=== PATIENT | female | born 1985 | race Caucasian/White ===

== ENCOUNTER 2018-01-24 18:15 | Emergency (ER) | payer SELFPAY ==
[2018-01-24] MEDS ORDERED: KETOROLAC 30 MG/ML INJ ONE (19:22)
[2018-01-24] MEDS ORDERED: NA CHLORIDE 0.9% 1,000 ML ONE (19:23)
[2018-01-24 19:54] LABS: Absolute Lymphocytes (CBC) 1.5 K/uL (0.7-4.9); Absolute Monocytes 0.4 K/uL (0.1-1.3); Absolute Neutrophil 5.7 K/uL (1.8-8.0); Basophils % 0.5 % (0-1.3); Eosinophils % 0.9 % (0-4.4); Hematocrit 37.6 % (36.0-45.0); MCV 88.6 fL (80-100); MPV 7.1 fL (7.6-11.3); Monocytes % 5.5 % (3.3-12.3); RBC Red Blood Cell Count 4.24 M/uL (3.86-4.86)
[2018-01-24 20:03] LABS: Bicarbonate 29 mEq/L (21-31); Glucose Level 84 mg/dL (65-120); Potassium 3.9 mEq/L (3.6-5.0); Sodium Level 134 mEq/L (135-145)
[2018-01-24 20:04] LABS: Protime INR 0.97
[2018-01-24 20:09] LABS: ALT/SGPT 18 IU/L (10-60); AST/SGOT 20 IU/L (10-42); Albumin 4.3 g/dL (3.2-5.5); Alkaline Phosphatase 68 IU/L (42-121); BUN Blood Urea Nitrogen 9 mg/dL (6-20); Bilirubin Direct < 0.1 mg/dL (0-0.2); Bilirubin Total 0.4 mg/dL (0.3-1.2); Creatine Phosphokinase 66 IU/L (22-269); Glomerular Filtration Rate > 90 mL/min (=/>90); Protein, Total 7.2 g/dL (6.0-8.3)
[2018-01-24 20:12] LABS: CKMB Creatine Kinase MB 0.6 ng/ml (0.3-4.0)
[2018-01-24 20:30] LABS: Urine Blood NEGATIVE (NEG); Urine Glucose NEGATIVE (NEG); Urine Protein NEGATIVE (NEG); Urine Specific Gravity 1.015 (1.005-1.030)
[2018-01-24] MEDS ORDERED: CYCLOBENZAPRINE 10 MG TAB ONE (21:03)
[2018-01-24] MEDS ORDERED: MORPHINE 4 MG/ML SYR ONE (21:04)
--- NOTE | 2018-01-24 21:35 | ER ---
Nurse's Notes [facility] Name: Angelica Park Age: 32 yrs Sex: Female : 1985 Arrival Date: 01/24/2018 Time: 18:16 Bed 23 Private MD: Diagnosis: Other chest pain-Musculoskeletal;Paresthesia of skin-Right Arm;Pain in right shoulder Presentation: 01/24 18:19 Presenting complaint: Patient states: Reports sharp pain in ribs that started at 1500 aj today. 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 Drove herself to ER and ambulated in with steady gait. Transition of care: patient was not received from another setting of care. Onset of symptoms was January 24, 2018. Care prior to arrival: None. 18:19 Method Of Arrival: Ambulatory aj 18:19 Acuity: DIEGO 3 aj Triage Assessment: 18:22 General: Appears in no apparent distress. comfortable, Behavior is cooperative, aj anxious. Pain: Complains of pain in right eighth rib, right ninth rib, right seventh intercostal space and right eighth intercostal space Aggravated by repositioning. Neuro: Level of Consciousness is awake, alert, obeys commands, Oriented to person, place, time, situation, Gait is steady, Speech is normal, Facial symmetry appears normal, Numbness in chest and right arm. Cardiovascular: Capillary refill < 3 seconds in bilateral fingers Patient's skin is warm and dry. Respiratory: Reports pain with respiration Airway is patent Respiratory effort is even, unlabored, Respiratory pattern is regular, symmetrical. Derm: Skin is intact, is healthy with good turgor, Skin is pink, warm \T\ dry. normal. 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 - Social history:: Smoking status: Patient uses tobacco products, electronic cigarette. Screenin:00 Abuse screen: Denies threats or abuse. Nutritional screening: No deficits noted. cr4 Tuberculosis screening: No symptoms or risk factors identified. Fall Risk None identified. Assessment: 19:20 Pain: Pain radiates to right hand, right shoulder and face around lips. Pain began 2 cr4 hours ago. 19:20 General: Appears uncomfortable, well groomed, Behavior is anxious. Pain: Complains of cr4 pain in right rib area Pain currently is 8 out of 10 on a pain scale. at worst was 9 out of 10 on a pain scale. Quality of pain is described as aching, sharp, tingling, Aggravated by repositioning, Goal of pain control is to. Neuro: Reports numbness in right arm, and around mouth. paresthesias in face and right arm weakness Denies blurred vision dizziness, headache. Cardiovascular: Denies chest pain, lightheadedness, nausea, shortness of breath, Capillary refill < 3 seconds Patient's skin is warm and dry. Rhythm is regular. Respiratory: Airway is patent Respiratory effort is even, unlabored, Breath sounds are clear bilaterally. GI: No deficits noted. Patient currently denies nausea, vomiting. : Denies burning with urination, pain urinary frequency. EENT: No deficits noted. Derm: No deficits noted. 20:40 Reassessment: No changes from previously documented assessment. Patient and/or family cr4 updated on plan of care and expected duration. Pain level reassessed. Patient is alert, oriented x 3, equal unlabored respirations, skin warm/dry/pink. . 21:25 Reassessment: No changes from previously documented assessment. Patient and/or family cr4 updated on plan of care and expected duration. Pain level reassessed. Patient is alert, oriented x 3, equal unlabored respirations, skin warm/dry/pink. 22:00 Reassessment: Patient is alert, oriented x 3, equal unlabored respirations, skin cr4 warm/dry/pink. Patient states feeling better. Vital Signs: 18:22 BP 140 / 92; Pulse 82; Resp 22; Temp 98.0; Pulse Ox 99% on R/A; Weight 63.5 kg; Height aj 5 ft. 3 in. (160.02 cm); Pain 7/10; 19:46 BP 126 / 94; Pulse 70; Resp 18; Temp 98.3; Pulse Ox 98% ; Pain 8/10; cr4 20:45 BP 125 / 82; Pulse 75; Resp 18; Pulse Ox 98% ; Pain 7/10; cr4 21:45 BP 121 / 88; Pulse 74; Resp 18; Temp 98.4; Pulse Ox 100% ; Pain 6/10; cr4 22:00 Pain 5/10; cr4 04 00:58 Pain 7/10; cr4 01/24 18:22 Body Mass Index 24.80 (63.50 kg, 160.02 cm) ED Course: 01/24 18:16 Patient arrived in ED. as 18:21 Triage completed. aj 18:22 Arm band placed on left wrist. Patient placed in an exam room. aj 19:00 Marty Duke PA is PHCP. cp 19:00 Angus Pride MD is Attending Physician. cp 19:20 Patient has correct armband on for positive identification. Bed in low position. Side cr4 rails up X2. quality assurance monitor chassis on. Pulse ox on. Warm blanket given. 19:20 No provider procedures requiring assistance completed. cr4 19:40 Inserted saline lock: 20 gauge in right antecubital area, using aseptic technique. cr4 Patient maintains SpO2 saturation greater than 95% on room air. 19:50 Marty Rivera MD is Attending Physician. cp 20:31 EKG done, by ED staff, reviewed by Marty GUIDO. dh3 20:50 Patient moved to radiology via wheelchair. ml 21:02 X-ray completed. Patient tolerated procedure well. Patient moved back from radiology. ml 21:03 XRAY Ribs RIGHT In Process Unspecified. EDMS 21:03 XRAY Shoulder RIGHT 2 view In Process Unspecified. EDMS 22:00 intact, bleeding controlled, No redness/swelling at site. cr4 22:00 Sling applied to right arm. cr4 Administered Medications: 19:30 Drug: NS 0.9% 1000 ml Route: IV; Rate: 1 bolus; Site: right antecubital; cr4 20:40 Follow up: Response: No adverse reaction; IV Status: Completed infusion; IV Intake: cr4 1000ml 19:35 Drug: TORadol 30 mg Route: IVP; Site: right antecubital; cr4 01/25 00:58 Follow up: Pain 7/10 Adult; Response: Pain is decreased cr4 01/24 20:35 CANCELLED (Physician Discretion): morphine 2 mg IVP once cp 21:25 Drug: Flexeril 10 mg Route: PO; cr4 22:00 Follow up: Response: No adverse reaction; Pain is decreased cr4 21:25 Drug: morphine 2 mg Route: IVP; Site: right antecubital; cr4 22:00 Follow up: Pain 5/10 Adult; Response: No adverse reaction; Pain is decreased cr4 Intake: 20:40 IV: 1000ml; Total: 1000ml. cr4 Outcome: 21:35 Discharge ordered by MD. cp 22:00 Discharged to home ambulatory, with significant other. cr4 22:00 Condition: stable 22:00 Discharge instructions given to patient, significant other, Instructed on discharge instructions, follow up and referral plans. no drinking with medication, medication usage, Demonstrated understanding of instructions, follow-up care, medications, Prescriptions given X 3. 22:02 Patient left the ED. cr4 Signatures: Dispatcher [employer] EDMS Kyra Lopez RN RN aj Martinez, Amelia as Ruiz, Claudia, RN RN cr4 Lopez, Melissa ml Page, Corey, PA PA cp Herrera, Deanna [facility]
--- NOTE | 2018-01-24 21:35 | EDPHYS ---
Physician Documentation [facility] Name: Angelica Park Age: 32 yrs Sex: Female : 1985 Arrival Date: 01/24/2018 Time: 18:16 Bed 23 Private MD: ED Physician Marty Rivera HPI: 01/24 19:15 This 32 yrs old Female presents to ER via Ambulatory with complaints of Chest cp Pain, Numbness. 19:15 The patient or guardian reports chest pain that is located primarily in the right cp lateral posterior chest and right lateral anterior chest. 19:15 The pain radiates to the right arm, the right shoulder. Associated signs and symptoms: cp Pertinent positives: numbness of right arm, Pertinent negatives: cough, diaphoresis, shortness of breath, syncope. The chest pain is described as sharp. Duration: The patient or guardian reports a single episode, that is still ongoing, and unchanged. Modifying factors: the symptoms are aggravated by movement, palpation of area. 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 - Social history:: Smoking status: Patient uses tobacco products, electronic cigarette. ROS: 19:22 Constitutional: Negative for body aches, chills, fever, poor PO intake. cp 19:22 Eyes: Negative for injury, pain, redness, and discharge. cp Exam: 20:05 ECG was reviewed by the Attending Physician. cp 20:10 Constitutional: The patient appears in no acute distress, alert, awake, cp non-diaphoretic, non-toxic, well developed, well nourished, uncomfortable. 20:10 Head/Face: Normocephalic, atraumatic. cp 20:10 Eyes: Periorbital structures: appear normal, Pupils: equal, round, and reactive to light and accomodation, Extraocular movements: intact throughout, Conjunctiva: normal, no exudate, no injection, Sclera: no appreciated abnormality, Lids and lashes: appear normal, bilaterally. 20:10 ENT: External ear(s): are unremarkable, Ear canal(s): are normal, clear, TM's: bulging, is not appreciated, bilaterally, dullness, bilaterally, erythema, is not appreciated, bilaterally, Nose: is normal, Mouth: Lips: moist, Oral mucosa: moist, Posterior pharynx: Airway: no evidence of obstruction, patent, Tonsils: are normal in appearance, Uvula: midline, swelling, is not appreciated, erythema, is not appreciated, exudate, is not appreciated, Voice: is normal. 20:10 Neck: C-spine: vertebral tenderness, is not appreciated, crepitus, is not appreciated, ROM/movement: is normal, is supple, without pain, no range of motions limitations, no nuchal rigidity. 20:10 Chest/axilla: Inspection: normal, Palpation: crepitus, is not appreciated, tenderness, that is moderate, of the right lateral posterior chest and right lateral anterior chest. 20:10 Cardiovascular: Rate: normal, Rhythm: regular, Pulses: Pulses are 2+ in right radial artery and left radial artery. Heart sounds: murmur, not appreciated, rub, not appreciated, gallop, not appreciated, Edema: is not appreciated, JVD: is not appreciated. 20:10 Respiratory: the patient does not display signs of respiratory distress, Respirations: normal, no use of accessory muscles, no retractions, no splinting, no tachypnea, labored breathing, is not present, Breath sounds: are clear throughout, no decreased breath sounds, no stridor, no wheezing. 20:10 Abdomen/GI: Inspection: abdomen appears normal, Bowel sounds: active, all quadrants, Palpation: abdomen is soft and non-tender, in all quadrants, rebound tenderness, is not appreciated, voluntary guarding, is not appreciated, involuntary guarding, is not appreciated. 20:10 Back: ROM is normal. Vital Signs: 18:22 BP 140 / 92; Pulse 82; Resp 22; Temp 98.0; Pulse Ox 99% on R/A; Weight 63.5 kg; Height aj 5 ft. 3 in. (160.02 cm); Pain 7/10; 19:46 BP 126 / 94; Pulse 70; Resp 18; Temp 98.3; Pulse Ox 98% ; Pain 8/10; cr4 20:45 BP 125 / 82; Pulse 75; Resp 18; Pulse Ox 98% ; Pain 7/10; cr4 21:45 BP 121 / 88; Pulse 74; Resp 18; Temp 98.4; Pulse Ox 100% ; Pain 6/10; cr4 22:00 Pain 5/10; cr4 01/25 00:58 Pain 7/10; cr4 01/24 18:22 Body Mass Index 24.80 (63.50 kg, 160.02 cm) aj MDM: 01/24 19:00 Patient medically screened. cp 20:00 Differential diagnosis: abnormal EKG, acute myocardial infarction, acute pericarditis, cp anxiety, chest wall pain, cholecystitis, pancreatitis, pleurisy, pneumonia, pneumothorax, pulmonary embolus, stable angina, unstable angina, rib fracture. 21:34 Data reviewed: vital signs, nurses notes, lab test result(s), EKG, radiologic studies, cp plain films. 21:34 Test interpretation: by ED physician or midlevel provider: ECG, plain radiologic cp studies. Counseling: I had a detailed discussion with the patient and/or guardian regarding: the historical points, exam findings, and any diagnostic results supporting the discharge/admit diagnosis, lab results, radiology results, to return to the emergency department if symptoms worsen or persist or if there are any questions or concerns that arise at home. 01/24 19:07 Order name: Basic Metabolic Panel; Complete Time: 20:12 cp 01/24 19:07 Order name: BNP; Complete Time: 20:33 cp 01/24 19:07 Order name: CBC with Diff; Complete Time: 20:12 cp 01/24 19:07 Order name: Ckmb; Complete Time: 20:12 cp 01/24 19:07 Order name: CPK; Complete Time: 20:12 cp 01/24 19:07 Order name: LFT's; Complete Time: 20:12 cp 01/24 19:07 Order name: Magnesium; Complete Time: 20:12 cp 01/24 19:07 Order name: PT-INR; Complete Time: 20:12 cp 01/24 19:07 Order name: Ptt, Activated; Complete Time: 20:12 cp 01/24 19:07 Order name: Troponin (emerg Dept Use Only); Complete Time: 20:12 cp 01/24 19:07 Order name: D-Dimer; Complete Time: 20:12 cp 04 20:13 Order name: XRAY Ribs RIGHT cp 01/24 20:13 Order name: XRAY Shoulder RIGHT 2 view cp 01/24 20:14 Order name: Urine Dipstick--Ancillary (enter results); Complete Time: 20:33 em1 01/24 19:05 Order name: EKG; Complete Time: 19:05 cp 01/24 19:05 Order name: EKG - Nurse/Tech; Complete Time: 20:31 cp 01/24 19:07 Order name: Cardiac monitoring; Complete Time: 01:18 cp 01/24 19:07 Order name: IV Saline Lock; Complete Time: 19:50 cp 01/24 19:07 Order name: Labs collected and sent; Complete Time: 01:00 cp 01/24 19:07 Order name: O2 Per Protocol; Complete Time: 01:00 cp 01/24 19:07 Order name: O2 Sat Monitoring; Complete Time: 01:00 cp 01/24 19:07 Order name: Urine Dipstick-Ancillary (obtain specimen); Complete Time: 20:12 cp 01/24 21:32 Order name: Sling; Complete Time: 22:00 cp EC:05 Rate is 71 beats/min. Rhythm is regular. [place] interval is normal. QRS interval is normal. cp QT interval is normal. No ST changes noted. Interpreted by me. Reviewed by me. Administered Medications: 19:30 Drug: NS 0.9% 1000 ml Route: IV; Rate: 1 bolus; Site: right antecubital; cr4 20:40 Follow up: Response: No adverse reaction; IV Status: Completed infusion; IV Intake: cr4 1000ml 19:35 Drug: TORadol 30 mg Route: IVP; Site: right antecubital; cr4 01/25 00:58 Follow up: Pain 7/10 Adult; Response: Pain is decreased cr4 01/24 20:35 CANCELLED (Physician Discretion): morphine 2 mg IVP once cp 21:25 Drug: Flexeril 10 mg Route: PO; cr4 22:00 Follow up: Response: No adverse reaction; Pain is decreased cr4 21:25 Drug: morphine 2 mg Route: IVP; Site: right antecubital; cr4 22:00 Follow up: Pain 5/10 Adult; Response: No adverse reaction; Pain is decreased cr4 Disposition: 01/25 06:58 Co-signature as Attending Physician, Marty Rivera MD I agree with the assessment and alea plan of care. Disposition: 01/24/18 21:35 Discharged to Home. Impression: Other chest pain - Musculoskeletal, Paresthesia of skin - Right Arm, Pain in right shoulder. - Condition is Stable. - Discharge Instructions: Chest Wall Pain, Musculoskeletal Pain, Shoulder Pain. - Prescriptions for Cyclobenzaprine 10 mg Oral Tablet - take 1 tablet by ORAL route every 8 hours As needed; 20 tablet. Diclofenac Sodium 75 mg Oral Tablet, Delayed Release (E.C.) - take 1 tablet by ORAL route 2 times per day; 20 tablet. Tramadol 50 mg Oral Tablet - take 1 tablet by ORAL route every 8 hours as needed; 12 tablet. - Medication Reconciliation Form, Thank You Letter, Antibiotic Education, Prescription Opioid Use form. - Follow up: Private Physician; When: 2 - 3 days; Reason: Recheck today's complaints. - Problem is new. - Symptoms have improved. Signatures: Dispatcher [employer] EDKyra De León RN Marty Bower MD MD cha Ruiz, Claudia, RN RN cr4 Marty Duke PA PA cp Corrections: (The following items were deleted from the chart) 01/24 20:35 20:35 morphine 2 mg IVP once ordered. cp cp
--- NOTE | 2018-01-25 08:21 | RAD REPORT ---
EXAM DESCRIPTION: Ribs Right - 01/24/2018 9:04 pm CLINICAL HISTORY: Right-sided chest pain, rib pain COMPARISON: June 2015 FINDINGS: No displaced rib fracture is evident. No aggressive rib lesion. No underlying pneumothorax, effusion, infiltrate or pulmonary contusion. IMPRESSION: Negative right rib series.
--- NOTE | 2018-01-25 08:21 | RAD REPORT ---
EXAM DESCRIPTION: Shoulder Right 2 View - 01/24/2018 9:04 pm CLINICAL HISTORY: Sharp right-sided chest, rib and shoulder pain COMPARISON: None. TECHNIQUE: Internal and external rotation views of the right shoulder were obtained. FINDINGS: There is no fracture or dislocation. AC joint is normal in appearance. No acute or suspici ous findings. IMPRESSION: Negative two-view right shoulder examination.
--- NOTE | 2018-01-27 22:48 | EKG ---
Test Date: 2018-01-24 Test Time: 19:58:18 Electrical Calibrator: GAMAL MEASUREMENT RESULTS: Intervals: Rate: 71 NH: 158 QRSD: 88 QT: 390 QTc: 423 Jeannette: P: 53 NH: 158 QRS: 15 T: 36 INTERPRETIVE STATEMENTS: Normal sinus rhythm Low voltage QRS Borderline ECG Compared to ECG 03/21/2017 10:42:54 Low QRS voltage now present Electronically Signed On 01-27-18 22:47:10 CDT by Jean Bella
== END 2018-01-24 22:02 | disposition home or self-care (01) ==
LOC: ER 18:15
DX: R20.2 Paresthesia of skin (principal); M25.511 Pain in right shoulder; Z72.0 Tobacco use; F41.9 Anxiety disorder, unspecified; F32.9 Major depressive disorder, single episode, unspecified; Z88.0 Allergy status to penicillin; Z88.1 Allergy status to other antibiotic agents; Z88.3 Allergy status to other anti-infective agents
CPT/HCPCS: 36415; 80048; 80076; 81003; 82550; 82553; 83735; 83880; 84484; 85025; 85379; 85610; 85730; 93005; 96361; 96374; 96375; 99285; J7030

== ENCOUNTER 2018-05-13 13:43 | Emergency (ER) | payer SELFPAY ==
--- NOTE | 2018-05-13 13:58 | EKG ---
Test Date: 2018-05-13 Test Time: 13:43:55 Card Player: KATIE MEASUREMENT RESULTS: Intervals: Rate: 83 NE: 132 QRSD: 68 QT: 358 QTc: 420 Humbird: P: 35 NE: 132 QRS: 14 T: 28 INTERPRETIVE STATEMENTS: Normal sinus rhythm Low voltage QRS Borderline ECG Compared to ECG 01/24/2018 19:58:18 No significant changes Electronically Signed On 05-13-18 13:57:52 CDT by Jean Bella
[2018-05-13 14:20] LABS: Absolute Monocytes 0.3 K/uL (0.1-1.3); Absolute Neutrophil 4.7 K/uL (1.8-8.0); Basophils % 0.6 % (0-1.3); Eosinophils % 1.4 % (0-4.4); Hematocrit 38.7 % (36.0-45.0); MCH 31.3 pg (27.0-35.0); MCV 90.2 fL (80-100); MPV 7.4 fL (7.6-11.3); Monocytes % 4.4 % (3.3-12.3); RBC Red Blood Cell Count 4.29 M/uL (3.86-4.86)
[2018-05-13 14:26] LABS: Protime INR 1.02
[2018-05-13 14:36] LABS: Bicarbonate 25 mmol/L (21-32); Potassium 3.9 mmol/L (3.5-5.1); Sodium Level 140 mmol/L (136-145)
[2018-05-13 14:37] LABS: ALT/SGPT 26 U/L (12-78); AST/SGOT 18 U/L (15-37); Albumin 3.6 g/dL (3.4-5.0); Alkaline Phosphatase 82 U/L (45-117); BUN Blood Urea Nitrogen 11 mg/dL (7-18); Bilirubin Direct < 0.1 mg/dL (0-0.2); Bilirubin Total 0.5 mg/dL (0.2-1.0); CKMB Creatine Kinase MB < 1.0 ng/mL (0.3-3.6); Creatine Phosphokinase 61 U/L (26-192); Glucose Level 128 mg/dL (74-106); NT PRO-BNP 65 pg/mL (<125); Protein, Total 6.9 g/dL (6.4-8.2)
[2018-05-13 15:01] LABS: Urine Blood NEGATIVE (NEG); Urine Glucose NEGATIVE (NEG); Urine Protein NEGATIVE (NEG); Urine Specific Gravity 1.015 (1.005-1.030); Urine pH 5.5 (5.0-7.0)
--- NOTE | 2018-05-13 15:02 | RAD REPORT ---
EXAM DESCRIPTION: RAD - Chest Single View - 05/13/2018 2:33 pm CLINICAL HISTORY: CHEST PAIN Chest pain. COMPARISON: CHEST PA AND LAT 2 VIEW dated 07/06/2015 FINDINGS: Portable technique limits examination quality. The lungs are grossly clear. The heart is normal in size. No displaced fractures. IMPRESSION: No acute intrathoracic process suspected.
--- NOTE | 2018-05-13 15:09 | EDPHYS ---
Physician Documentation [facility] Name: Angelica Park Age: 33 yrs Sex: Female : 1985 Arrival Date: 05/13/2018 Time: 13:45 Bed 16 Private MD: ED Physician Ashutohs Reynolds HPI: 05/13 15:02 This 33 yrs old Female presents to ER via EMS with complaints of Chest Pain, ps1 Arm Pain. 15:02 The patient or guardian reports chest pain that is located primarily in the substernal ps1 area, anterior chest wall. The pain does not radiate. Associated signs and symptoms: The patient has no apparent associated signs or symptoms. The chest pain is described as sharp, stabbing. Duration: The patient or guardian reports a single episode, since last night. Severity of pain: At its worst the pain was moderate. no medical history. States she cannot take steroids PO cause they make her sick. No DVT symptoms or risk factors. Pain completely reproducible by palpation. Historical: - Allergies: 13:49 Amoxicillin; ae1 13:49 Bactrim; ae1 13:49 Cipro; ae1 13:49 PENICILLINS; ae1 - Home Meds: 13:49 Cymbalta Oral [Active]; gabapentin Oral [Active]; Seroquel Oral [Active]; ae1 - PMHx: 13:50 Anxiety; Depression; ae1 - Immunization history:: Adult Immunizations up to date. - Social history:: Smoking status: Patient uses tobacco products, denies chronic smoking, but will smoke occasionally. - Ebola Screening: : Patient negative for fever greater than or equal to 101.5 degrees Fahrenheit, and additional compatible Ebola Virus Disease symptoms Patient denies exposure to infectious person Patient denies travel to an Ebola-affected area in the 21 days before illness onset No symptoms or risks identified at this time. ROS: 15:02 Constitutional: Negative for fever, chills, and weight loss, Eyes: Negative for injury, ps1 pain, redness, and discharge, Cardiovascular: Negative for chest pain, palpitations, and edema, Respiratory: Negative for shortness of breath, cough, wheezing, and pleuritic chest pain, Abdomen/GI: Negative for abdominal pain, nausea, vomiting, diarrhea, and constipation, Skin: Negative for injury, rash, and discoloration, Neuro: Negative for headache, weakness, numbness, tingling, and seizure. 15:02 MS/extremity: Positive for pain, of the anterior aspect of left upper chest. Exam: 15:02 Constitutional: This is a well developed, well nourished patient who is awake, alert, ps1 and in no acute distress. Head/Face: Normocephalic, atraumatic. Eyes: Pupils equal round and reactive to light, extra-ocular motions intact. Lids and lashes normal. Conjunctiva and sclera are non-icteric and not injected. Cardiovascular: Regular rate and rhythm. No gallops, murmurs, or rubs. Normal PMI, no JVD. No pulse deficits. Respiratory: Lungs have equal breath sounds bilaterally, clear to auscultation and percussion. No rales, rhonchi or wheezes noted. No increased work of breathing, no retractions or nasal flaring. Abdomen/GI: Soft, non-tender, with normal bowel sounds. No distension or tympany. No guarding or rebound. No evidence of tenderness throughout. Skin: Warm, dry with normal turgor. Normal color with no rashes, no lesions, and no evidence of cellulitis. MS/ Extremity: Pulses equal, no cyanosis. Neurovascular intact. Full, normal range of motion. Neuro: Awake and alert, GCS 15, oriented to person, place, time, and situation. Cranial nerves II-XII grossly intact. Sensory grossly intact. 15:02 Chest/axilla: Inspection: normal, Palpation: tenderness, of the anterior aspect of left upper chest, that totally reproduces the patient's complaints. Vital Signs: 13:45 BP 131 / 90; Pulse 94; Resp 22; Temp 98.2(O); Pulse Ox 99% on R/A; ae1 14:20 Weight 70.31 kg (R); ae1 14:49 BP 114 / 79; Pulse 67; Resp 15; Pulse Ox 99% on R/A; ae1 MDM: 13:43 HEART Score: History: Slightly Suspicious (0), ECG: Normal (0), Age: < or = 45 years ps1 (0), Risk Factors: No Risk Factors Known (0), Troponin: < or = 1 x Normal Limit (0), Total Score =. Data reviewed: vital signs, nurses notes, lab test result(s), EKG, radiologic studies. Data interpreted: athletic monitor: Pulse oximetry:. 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 Special discussion: Based on the patient's history, exam, and Dx evaluation, there is no indication for emergent intervention or inpatient Tx. It is understood by the patient/guardian that if the Sx's persist or worsen they need to return immediately for re-evaluation. 15:02 Patient medically screened. 05/13 13:48 Order name: Basic Metabolic Panel; Complete Time: 14:05/13 13:48 Order name: CBC with Diff; Complete Time: :05/13 13:48 Order name: Ckmb; Complete Time: 14:05/13 13:48 Order name: CPK; Complete Time: 14:05/13 13:48 Order name: LFT's; Complete Time: 14:05/13 13:48 Order name: Magnesium; Complete Time: 14:05/13 13:48 Order name: NT PRO-BNP; Complete Time: 14:05/13 13:48 Order name: PT-INR; Complete Time: 14:05/13 13:48 Order name: Ptt, Activated; Complete Time: 14:05/13 13:48 Order name: Troponin (emerg Dept Use Only); Complete Time: 14:05/13 13:48 Order name: XRAY Chest (1 view); Complete Time: 15:05/13 13:48 Order name: DD; Complete Time: 14:05/13 14:50 Order name: Urine Dipstick--Ancillary (enter results); Complete Time: 15:05/13 14:50 Order name: Urine --Ancillary (enter results); Complete Time: 15:05/13 13:48 Order name: EKG; Complete Time: 13:49 05/13 13:48 Order name: Cardiac monitoring; Complete Time: 13:48 05/13 13:48 Order name: EKG - Nurse/Tech; Complete Time: 13:48 05/13 13:48 Order name: IV Saline Lock; Complete Time: 13:48 05/13 13:48 Order name: Labs collected and sent; Complete Time: 13:48 05/13 13:48 Order name: O2 Per Protocol; Complete Time: 13:49 05/13 13:48 Order name: O2 Sat Monitoring; Complete Time: 13:49 05/13 13:48 Order name: Urine Dipstick-Ancillary (obtain specimen); Complete Time: 14:44 aj EC:43 Rate is 83 beats/min. Rhythm is regular. QRS [place] is Normal. OK interval is normal. QRS ps1 interval is normal. QT interval is normal. No Q waves. T waves are Normal. No ST changes noted. Clinical impression: Normal ECG. Interpreted by me. Administered Medications: 15:36 Drug: Decadron 10 mg Route: IM; Site: left gluteus; ae1 16:15 Follow up: Response: No adverse reaction ae1 Disposition: 05/13/18 15:08 Discharged to Home. Impression: costochondritis. - Condition is Stable. - Discharge Instructions: Costochondritis. - Medication Reconciliation Form, Thank You Letter, Antibiotic Education, Prescription Opioid Use form. - Follow up: Private Physician; When: As needed; Reason: Re-evaluation by your physician. Follow up: Emergency Department; When: As needed; Reason: Worsening of condition. - Problem is new. - Symptoms are unchanged. Signatures: Dispatcher [employer] EDKyra De León RN RN aj Sb Reich RN RN ae1 Ashutosh Reynolds MD MD ps1 Corrections: (The following items were deleted from the chart) 16:03 15:08 05/13/2018 15:08 Discharged to Home. Impression: costochondritis. Condition is ae1 Stable. Forms are Medication Reconciliation Form, Thank You Letter, Antibiotic Education, Prescription Opioid Use. Follow up: Private Physician; When: As needed; Reason: Re-evaluation by your physician. Follow up: Emergency Department; When: As needed; Reason: Worsening of condition. Problem is new. Symptoms are unchanged. ps1
--- NOTE | 2018-05-13 15:09 | ER ---
Nurse's Notes [facility] Name: Angelica Park Age: 33 yrs Sex: Female : 1985 Arrival Date: 05/13/2018 Time: 13:45 Bed 16 Private MD: Diagnosis: costochondritis Presentation: 05/13 13:46 Acuity: DIEGO 3 ae1 13:50 Presenting complaint: EMS states: EMS states patient was at home when she had sudden ae1 left arm pain and left sided chest pain. Patient denies injury. Transition of care: patient was not received from another setting of care. Onset of symptoms was May 13, 2018 at 13:00. Risk Assessment: Do you want to hurt yourself or someone else? Patient reports no desire to harm self or others. Initial Sepsis Screen: Does the patient meet any 2 criteria? RR > 20 per min. Does the patient have a suspected source of infection? No. Patient's initial sepsis screen is negative. Care prior to arrival: IV initiated. 20 GA, in the left hand. 13:50 Method Of Arrival: EMS: [facility] ae1 Triage Assessment: 16:02 General: Appears distressed, uncomfortable, Behavior is cooperative, restless. Pain:. ae1 Historical: - Allergies: 13:49 Amoxicillin; ae1 13:49 Bactrim; ae1 13:49 Cipro; ae1 13:49 PENICILLINS; ae1 - Home Meds: 13:49 Cymbalta Oral [Active]; gabapentin Oral [Active]; Seroquel Oral [Active]; ae1 - PMHx: 13:50 Anxiety; Depression; ae1 - Immunization history:: Adult Immunizations up to date. - Social history:: Smoking status: Patient uses tobacco products, denies chronic smoking, but will smoke occasionally. - Ebola Screening: : Patient negative for fever greater than or equal to 101.5 degrees Fahrenheit, and additional compatible Ebola Virus Disease symptoms Patient denies exposure to infectious person Patient denies travel to an Ebola-affected area in the 21 days before illness onset No symptoms or risks identified at this time. Screenin:45 Tuberculosis screening: No symptoms or risk factors identified. Fall Risk None ae1 identified. 13:47 Abuse screen: Denies threats or abuse. Nutritional screening: No deficits noted. ae1 Assessment: 13:50 General: Appears distressed, uncomfortable, slender, Behavior is cooperative, anxious, ae1 crying, restless. Pain: Complains of pain in chest and left arm Pain does not radiate. Pain began suddenly. Neuro: Level of Consciousness is awake, alert, obeys commands, Oriented to person, place, time, situation. Cardiovascular: Heart tones S1 S2 present Patient's skin is warm and dry. Respiratory: Airway is patent Respiratory effort is even, unlabored, Respiratory pattern is regular, symmetrical, Breath sounds are clear bilaterally. GI: No signs and/or symptoms were reported involving the gastrointestinal system. : No signs and/or symptoms were reported regarding the genitourinary system. EENT: No signs and/or symptoms were reported regarding the EENT system. Derm: Skin is pink, warm \T\ dry. Musculoskeletal: No signs and/or symptoms reported regarding the musculoskeletal system. 14:24 Reassessment: Patient up to restroom to urinate. is walking with patient as ae1 well. Vital Signs: 13:45 BP 131 / 90; Pulse 94; Resp 22; Temp 98.2(O); Pulse Ox 99% on R/A; ae1 14:20 Weight 70.31 kg (R); ae1 14:49 BP 114 / 79; Pulse 67; Resp 15; Pulse Ox 99% on R/A; ae1 ED Course: 13:45 Patient arrived in ED. ae1 13:47 Triage completed. ae1 13:47 Kyra Lopez RN is Primary Nurse. aj 13:47 Arm band placed on left wrist. EKG completed in triage. Results shown to MD. ae1 13:50 Maintain EMS IV. Dressing intact. Good blood return noted. Site clean \T\ dry. Gauge \T\ ae 1 site: 20 left hand. Patient maintains SpO2 saturation greater than 95% on room air. 13:55 EKG done, by fish roe technician. reviewed by Marty Rivera MD. sm3 14:00 Placed in gown. Bed in low position. Call light in reach. Side rails up X 1. Adult w/ ae1 patient. monitoring and evaluation advisor on. Pulse ox on. NIBP on. Warm blanket given. 14:16 Ashutosh Reynolds MD is Attending Physician. ps1 14:20 Sb Reich, KEVYN is Primary Nurse. ae1 14:20 X-ray completed. Portable x-ray completed in exam room. Patient tolerated procedure jb2 well. 14:32 XRAY Chest (1 view) In Process Unspecified. EDMS 16:23 No provider procedures requiring assistance completed. IV discontinued, intact, ae1 bleeding controlled, No redness/swelling at site. Pressure dressing applied. Administered Medications: 15:36 Drug: Decadron 10 mg Route: IM; Site: left gluteus; ae1 16:15 Follow up: Response: No adverse reaction ae1 Outcome: 15:08 Discharge ordered by . ps1 16:03 Patient left the ED. ae1 16:24 Discharged to home ambulatory, with significant other. ae1 16:24 Condition: stable 16:24 Discharge instructions given to patient, Instructed on discharge instructions, follow up and referral plans. Demonstrated understanding of instructions. Signatures: Dispatcher [employer] EDMS Kyra Lopez RN RN aj Buechter, Jesse jb2 Sb Reich RN RN ae1 Ashutosh Reynolds MD MD ps1 Sona Batista sm3 Corrections: (The following items were deleted from the chart) 14:49 14:47 BP 105 / 81; Pulse 72bpm; Resp 22bpm; Pulse Ox 98% RA; ae1 ae1
[2018-05-13] MEDS ORDERED: DEXAMETHASONE 10 MG/ML VIAL ONE (15:29)
== END 2018-05-13 16:03 | disposition home or self-care (01) ==
LOC: ER 13:43
DX: M94.0 Chondrocostal junction syndrome [Tietze] (principal)
CPT/HCPCS: 36415; 71045; 80048; 80076; 81003; 81025; 82550; 82553; 83735; 83880; 84484; 85025; 85379; 85610; 85730; 93005; 96372; 99285; J1100

== ENCOUNTER 2018-08-24 22:13 | Emergency (ER) | payer SELFPAY ==
[2018-08-24 22:38] LABS: Absolute Lymphocytes (CBC) 1.3 K/uL (0.7-4.9); Absolute Monocytes 0.4 K/uL (0.1-1.3); Absolute Neutrophil 3.6 K/uL (1.8-8.0); Basophils % 0.5 % (0-1.3); Eosinophils % 1.1 % (0-4.4); Hematocrit 36.1 % (36.0-45.0); MCH 31.7 pg (27.0-35.0); MCV 90.3 fL (80-100); MPV 7.3 fL (7.6-11.3); Monocytes % 6.8 % (3.3-12.3)
[2018-08-24 22:41] LABS: Arterial Blood Carboxyhemoglob 0.7 % (0-1.5); Blood Gas Oxyhemoglobin 93.8 % (94-97); Blood O2 Saturation 95.5 % (92-98.5)
[2018-08-24] MEDS ORDERED: NA CHLORIDE 0.9% 1,000 ML ONE (22:41)
[2018-08-24] MEDS ORDERED: FAMOTIDINE 20 MG/2 ML VIAL IV ONE (22:41)
[2018-08-24 22:45] LABS: Protime INR 1.03
[2018-08-24 23:01] LABS: Barbiturates NEGATIVE (NEGATIVE); Benzodiazepines POSITIVE (NEGATIVE); Cocaine NEGATIVE (NEGATIVE); METHAMPHETAM NEGATIVE (NEGATIVE); Methadone NEGATIVE (NEGATIVE); Opiates NEGATIVE (NEGATIVE); Phencyclidine NEGATIVE (NEGATIVE); THC Cannibis NEGATIVE (NEGATIVE)
[2018-08-24 23:13] LABS: ALT/SGPT 21 U/L (12-78); AST/SGOT 15 U/L (15-37); Albumin 3.4 g/dL (3.4-5.0); Alkaline Phosphatase 80 U/L (45-117); BUN Blood Urea Nitrogen 10 mg/dL (7-18); Bicarbonate 25 mmol/L (21-32); Bilirubin Direct < 0.1 mg/dL (0-0.2); Bilirubin Total 0.3 mg/dL (0.2-1.0); Glucose Level 135 mg/dL (74-106); Lipase 273 U/L (73-393); NT PRO-BNP 14 pg/mL (<125); Potassium 3.2 mmol/L (3.5-5.1); Protein, Total 6.5 g/dL (6.4-8.2); Sodium Level 139 mmol/L (136-145); Troponin (Emerg Dept Use Only) < 0.02 ng/mL (0.0-0.045)
--- NOTE | 2018-08-24 23:25 | EDPHYS ---
Physician Documentation [facility] Name: Angelica Salcedo Age: 33 yrs Sex: Female : 1985 Arrival Date: 08/24/2018 Time: 22:14 Bed 3 Private MD: ED Physician Marty Rivera HPI: 08/24 22:23 This 33 yrs old Female presents to ER via Unassigned with complaints of alea Suicidal Ideation, Overdose. 22:23 The patient presents to the emergency department with depression, a history of a alea suicide gesture, where the patient took pills/medications, quel, NSAID's. Onset: The symptoms/episode began/occurred just prior to arrival. Past psychiatric history: Prior diagnosis: no previous psychiatric diagnosis known. Associated signs and symptoms: Pertinent positives; suicide ideation. Severity of symptoms: At their worst the symptoms were moderate in the emergency department the symptoms are unchanged. Unable to obtain HPI due to obtunded state. The patient has not experienced similar symptoms in the past. Historical: - Allergies: 22:31 Amoxicillin; tl2 22:31 Bactrim; tl2 22:31 Cipro; tl2 22:31 PENICILLINS; tl2 - Home Meds: 22:31 Cymbalta Oral [Active]; gabapentin Oral [Active]; Seroquel 100 mg oral tab [Active]; tl2 - PMHx: 22:31 Anxiety; Depression; tl2 - Immunization history:: Adult Immunizations up to date. - Social history:: Smoking status: unknown. - Family history:: not pertinent. - Ebola Screening: : No symptoms or risks identified at this time. ROS: 22:23 Eyes: Negative for injury, pain, redness, and discharge, ENT: Negative for injury, alea pain, and discharge, Neck: Negative for injury, pain, and swelling, Respiratory: Negative for shortness of breath, cough, wheezing, and pleuritic chest pain, Abdomen/GI: Negative for abdominal pain, nausea, vomiting, diarrhea, and constipation, Back: Negative for injury and pain, : Negative for injury, bleeding, discharge, and swelling, MS/Extremity: Negative for injury and deformity, Skin: Negative for injury, rash, and discoloration, Psych: Negative for depression, anxiety, suicide ideation, homicidal ideation, and hallucinations, Allergy/Immunology: Negative for hives, rash, and allergies, Endocrine: Negative for neck swelling, polydipsia, polyuria, polyphagia, and marked weight changes. 22:23 Constitutional: Positive for malaise. Exam: 22:23 Head/Face: Normocephalic, atraumatic. ENT: Nares patent. No nasal discharge, no alea septal abnormalities noted. Tympanic membranes are normal and external auditory canals are clear. Oropharynx with no redness, swelling, or masses, exudates, or evidence of obstruction, uvula midline. Mucous membranes moist. Neck: Trachea midline, no thyromegaly or masses palpated, and no cervical lymphadenopathy. Supple, full range of motion without nuchal rigidity, or vertebral point tenderness. No Meningismus. Chest/axilla: Normal chest wall appearance and motion. Nontender with no deformity. No lesions are appreciated. Cardiovascular: Regular rate and rhythm with a normal S1 and S2. No gallops, murmurs, or rubs. Normal PMI, no JVD. No pulse deficits. Respiratory: Lungs have equal breath sounds bilaterally, clear to auscultation and percussion. No rales, rhonchi or wheezes noted. No increased work of breathing, no retractions or nasal flaring. Abdomen/GI: Soft, non-tender, with normal bowel sounds. No distension or tympany. No guarding or rebound. No evidence of tenderness throughout. Back: No spinal tenderness. No costovertebral tenderness. Full range of motion. Female : Normal external genitalia. MS/ Extremity: Pulses equal, no cyanosis. Neurovascular intact. Full, normal range of motion. 22:23 Constitutional: The patient appears in obvious distress, unresponsive 22:23 Neuro: Orientation: unable to test, Mentation: unable to test, Memory: unable to test, Cranial nerves: unable to test, Cerebellar function: unable to test, Motor: moves all fours, Sensation: unable to test, Gait: not tested. Deep tendon reflexes are 1 (trace) + in the bilateral brachioradialis, bicep, tricep and patellar and Achilles tendons, seizure activity, is not displayed by the patient. Vital Signs: 22:31 BP 89 / 62; Pulse 120; Resp 18; Pulse Ox 100% on R/A; Weight 86.18 kg; Height 5 ft. 5 tl2 in. (165.10 cm); 22:53 BP 105 / 68; Pulse 109; Resp 15; Temp 97.8(A); Pulse Ox 100% on R/A; tl2 23:12 BP 113 / 75; Pulse 117; Resp 17; Pulse Ox 100% on R/A; lp1 23:32 BP 113 / 67; Pulse 118; Resp 13; Pulse Ox 99% on R/A; tl2 23:54 BP 107 / 67; Pulse 117; Resp 12; Pulse Ox 98% on R/A; tl2 08/25 00:16 BP 105 / 74; Pulse 117; Resp 12; Pulse Ox 98% on R/A; tl2 00:40 BP 105 / 63; Pulse 115; Resp 13; Pulse Ox 98% on R/A; tl2 08/24 22:31 Body Mass Index 31.62 (86.18 kg, 165.10 cm) tl2 MDM: 08/24 22:16 Patient medically screened. [facility] 22:30 Data reviewed: vital signs, nurses notes, lab test result(s), EKG, radiologic studies, alea plain films. 08/24 22:23 Order name: Basic Metabolic Panel; Complete Time: 23:19 [facility] 08/24 22:23 Order name: CBC with Diff; Complete Time: 23:04 [facility] 08/24 22:23 Order name: LFT's; Complete Time: 23:19 [facility] 08/24 22:23 Order name: Magnesium; Complete Time: 23:19 [facility] 08/24 22:23 Order name: NT PRO-BNP; Complete Time: 23:19 [facility] 08/24 22:23 Order name: PT-INR; Complete Time: 23:04 [facility] 08/24 22:23 Order name: Troponin (emerg Dept Use Only); Complete Time: 23:19 [facility] 08/24 22:23 Order name: Lipase; Complete Time: 23:19 [facility] 08/24 22:23 Order name: Acetaminophen; Complete Time: 23:19 [facility] 08/24 22:23 Order name: ETOH Level; Complete Time: 23:19 [facility] 08/24 22:23 Order name: Ptt, Activated; Complete Time: 23:04 [facility] 08/24 22:23 Order name: Salicylate; Complete Time: 23:19 alea 08/24 22:23 Order name: Urine Drug Screen; Complete Time: 23:04 alea 08/24 22:23 Order name: ABG; Complete Time: 23:04 [facility] 08/24 22:23 Order name: XRAY Chest (1 view) [facility] 08/24 22:23 Order name: EKG; Complete Time: 22:25 [facility] 08/24 22:23 Order name: Cardiac monitoring; Complete Time: 22:31 [facility] 08/24 22:23 Order name: EKG - Nurse/Tech; Complete Time: 22:31 [facility] 08/24 22:23 Order name: IV Saline Lock; Complete Time: 22:31 [facility] 08/24 22:23 Order name: Labs collected and sent; Complete Time: 22:31 [facility] 08/24 22:23 Order name: O2 Per Protocol; Complete Time: 22:31 [facility] 08/24 22:23 Order name: O2 Sat Monitoring; Complete Time: 22:31 [facility] 08/24 22:32 Order name: CT Head Brain wo Cont [facility] 08/24 22:47 Order name: Urine Dipstick--Ancillary (enter results) tx 08/24 22:47 Order name: Urine --Ancillary (enter results) ms 08/24 22:23 Order name: Urine Dipstick-Ancillary (obtain specimen); Complete Time: 22:31 [facility] 08/24 22:23 Order name: Cart[place]; Complete Time: 22:31 [facility] Administered Medications: 22:37 Drug: NS 0.9% (30 ml/kg) 30 ml/kg Route: IV; Rate: bolus; Site: right antecubital; tl2 08/25 00:59 Follow up: IV Status: Completed infusion; IV Intake: 2000ml 2 08/24 22:38 CANCELLED (wrong route): Pepcid 20 mg PO once tl2 22:38 Drug: Pepcid 20 mg Route: IVP; Site: right antecubital; tl2 08/25 00:59 Follow up: Response: No adverse reaction 2 08/24 23:46 Drug: Potassium Chloride 20 mEq Route: IV; Rate: per protocol; Site: right antecubital; tl2 08/25 00:59 Follow up: IV Status: Infusion continued upon transfer tl2 00:47 Not Given (pt transferred with KCL 20 meq infusing): D5-1/2 NS with KCl 20 mEq/L 1000 tl2 ml IV at 125 ml/hr continuous Disposition: 08/24/18 23:[address] [facility]. Diagnosis are Suicide attempt, Hypotension - resolved, Altered mental status, unspecified - overdose seroquel, Hypokalemia. - Reason for transfer: Higher level of care. - Accepting physician is to [facility] , icu. - Condition is Fair. - Problem is new. - Symptoms have improved. Signatures: Dispatcher [employer] Marty Emmanuel MD MD cha Knox, Taylor RN RN tl2 Corrections: (The following items were deleted from the chart) 08/24 22:38 22:23 Pepcid 20 mg PO once ordered. alea tl2 22:38 22:37 Pepcid 20 mg PO once given. tl2 tl2 22:38 22:38 Pepcid 20 mg PO once ordered. tl2 tl2 23:50 23:23 08/24/2018 23:[address] [facility]. Diagnosis is alea Suicide attempt; Hypotension - resolved; Altered mental status, unspecified - overdose seroquel. Reason for transfer: Higher level of care. Accepting physician is to [facility] , icu. Condition is Fair. Problem is new. Symptoms have improved. alea 08/25 00:59 08/24 23:50 08/24/2018 23:[address] [facility]. tl2 Diagnosis is Suicide attempt; Hypotension - resolved; Altered mental status, unspecified - overdose seroquel; Hypokalemia. Reason for transfer: Higher level of care. Accepting physician is to [facility] , icu. Condition is Fair. Problem is new. Symptoms have improved. alea
--- NOTE | 2018-08-24 23:25 | ER ---
Nurse's Notes [facility] Name: Angelica Salcedo Age: 33 yrs Sex: Female : 1985 Arrival Date: 08/24/2018 Time: 22:14 Bed 3 Private MD: Diagnosis: Suicide attempt;Hypotension-resolved;Altered mental status, unspecified-overdose seroquel;Hypokalemia Presentation: 08/24 22:27 Presenting complaint: EMS states: Pt reported to have taken 60 seroquel tablets, tl2 positive SI, at approx 2100 tonight. Pt is becoming increasingly drowsy and only responsive to pain stimuli. BP is trending down. 1 liter of NS infusing. Transition of care: patient was not received from another setting of care. Onset of symptoms was August 24, 2018 at 21:00. Risk Assessment: Do you want to hurt yourself or someone else? Patient reports desire/thoughts of hurting themselves or someone else. Provider notified. Initial Sepsis Screen: Does the patient meet any 2 criteria? No. Patient's initial sepsis screen is negative. Does the patient have a suspected source of infection? No. Patient's initial sepsis screen is negative. Care prior to arrival: Medication(s) given: Normal saline infusion, 1000 mL, IV initiated. 20 GA, in the left antecubital area. 22:27 Method Of Arrival: EMS: [facility] tl2 22:27 Acuity: DIEGO 2 tl2 Triage Assessment: 22:31 General: Appears in no apparent distress. Behavior is drowsy, listless. Pain: Denies tl2 pain. Neuro: Level of Consciousness is confused, lethargic, Oriented to person. Respiratory: Airway is patent Respiratory effort is even, unlabored, Respiratory pattern is regular, symmetrical. GI: No signs and/or symptoms were reported involving the gastrointestinal system. : No signs and/or symptoms were reported regarding the genitourinary system. Derm: Skin is pink, warm \T\ dry. Historical: - Allergies: 22:31 Amoxicillin; tl2 22:31 Bactrim; tl2 22:31 Cipro; tl2 22:31 PENICILLINS; tl2 - Home Meds: 22:31 Cymbalta Oral [Active]; gabapentin Oral [Active]; Seroquel 100 mg oral tab [Active]; tl2 - PMHx: 22:31 Anxiety; Depression; tl2 - Immunization history:: Adult Immunizations up to date. - Social history:: Smoking status: unknown. - Family history:: not pertinent. - Ebola Screening: : No symptoms or risks identified at this time. Screenin:34 Abuse screen: Denies threats or abuse. Nutritional screening: No deficits noted. tl2 Tuberculosis screening: No symptoms or risk factors identified. Fall Risk IV access (20 points). Mental Status- Overestimates/Forgets Limitations (15 pts.). Assessment: 22:34 General: see triage assessment. tl2 22:56 Reassessment: Assisted pt to CT. Pt is continuing to maintain own airway, BP is stable. tl2 Fluids infusing. 08/25 00:40 Reassessment: Patient appears in no apparent distress at this time. Pt VS remain tl2 stable. Family at bedside. Report given to accepting nurse, awaiting transport. Psych: 08/24 22:35 Subjective: Having thoughts of suicide. Plan for suicide is Pt took 60 seroquel tl2 tablets. Objective: pt listless and only responsive to pain. Interventions: Removed personal items and placed in bag. Patient placed in hospital gown. Urine collected and sent for urine drug test. Suicide Risk Assessment: Sad Person Scale: Sex of patient: Female: Score 0 points. Age of patient: Score 1 point if patient 15-34. Depression: Score 1 point if signs of depression are present. Previous Attempt: Score 0 point if patient has not previously attempted suicide. Substance Abuse: Score 0 point if patient does not abuse alcohol or drugs. Rational Thinking: Score 0 point if patient has rational thinking. Social Support: Score 0 if social support is present/available. Organized Plan: Score 1 point if patient had a plan in place. Relationship: Score 0 point if patient has a spouse or domestic partner. Chronic Sickness: Score 0 point if patient does not have a chronic illness, debilitating, or severe disorder. TOTAL POINTS: If total points are 3-4, proposed clinical action is close follow-up/consider hospitalization. Safety Checks: Personal items have been removed. Door is open. No visitors are present at this time. Pt denies substance abuse. 22:35 Commitment: Pt unable to answer questions. tl2 Vital Signs: 22:31 BP 89 / 62; Pulse 120; Resp 18; Pulse Ox 100% on R/A; Weight 86.18 kg; Height 5 ft. 5 tl2 in. (165.10 cm); 22:53 BP 105 / 68; Pulse 109; Resp 15; Temp 97.8(A); Pulse Ox 100% on R/A; tl2 23:12 BP 113 / 75; Pulse 117; Resp 17; Pulse Ox 100% on R/A; lp1 23:32 BP 113 / 67; Pulse 118; Resp 13; Pulse Ox 99% on R/A; tl2 23:54 BP 107 / 67; Pulse 117; Resp 12; Pulse Ox 98% on R/A; tl2 08/25 00:16 BP 105 / 74; Pulse 117; Resp 12; Pulse Ox 98% on R/A; tl2 00:40 BP 105 / 63; Pulse 115; Resp 13; Pulse Ox 98% on R/A; tl2 08/24 22:31 Body Mass Index 31.62 (86.18 kg, 165.10 cm) tl2 Vitals: 08/24 22:34 Cardiac Rhythm Assessment Sinus tach. tl2 ED Course: 22:14 Patient arrived in ED. ds1 22:15 Inserted saline lock: 18 gauge in right antecubital area, using aseptic technique. lp1 Blood collected. 22:16 Marty Rivera MD is Attending Physician. alea 22:25 Cartwright cath inserted, using sterile technique, 18 Fr., by sd, balloon inflated, to lp1 gravity drainage, urine specimen collected. 22:30 Triage completed. tl2 22:31 Arm band placed on right wrist. tl2 22:34 Maintain EMS IV. Dressing intact. Good blood return noted. Site clean \T\ dry. Gauge \T\ tl 2 site: 20 g left wrist. 22:34 Patient has correct armband on for positive identification. Placed in gown. Bed in low tl2 position. Call light in reach. Side rails up X2. Seizure precautions initiated. 22:36 XRAY Chest (1 view) In Process Unspecified. EDMS 22:36 X-ray completed. Portable x-ray completed in exam room. Patient tolerated procedure ka poorly. 22:45 Safety checks: Items removed: yes. Door open/sign placed on door: yes. Family/friend oe present: no. Sitter present: Yes. 22:50 CT completed. Patient tolerated procedure well. Patient moved back from CT. bq 22:57 CT Head Brain wo Cont In Process Unspecified. EDMS 23:00 Safety checks: Items removed: yes. Door open/sign placed on door: yes. Family/friend oe present: no. Sitter present: Yes. 23:15 Safety checks: Items removed: yes. Door open/sign placed on door: yes. Family/friend oe present: no. Sitter present: Yes. 23:30 Safety checks: Items removed: yes. Door open/sign placed on door: yes. Family/friend oe present: yes. Sitter present: Yes. 23:31 Iesha Hughes RN is Primary Nurse. tl2 23:45 Safety checks: Items removed: yes. Door open/sign placed on door: yes. Family/friend oe present: yes. Sitter present: Yes. 08/25 00:00 Safety checks: Items removed: yes. Door open/sign placed on door: yes. Family/friend oe present: yes. Sitter present: Yes. 00:15 Safety checks: Items removed: yes. Door open/sign placed on door: yes. Family/friend oe present: yes. Sitter present: Yes. 00:30 Safety checks: Items removed: yes. Door open/sign placed on door: yes. Family/friend oe present: yes. Sitter present: Yes. 00:40 No provider procedures requiring assistance completed. Patient transferred, IV remains tl2 in place. 00:45 Safety checks: Items removed: yes. Door open/sign placed on door: yes. Family/friend oe present: yes. Sitter present: Yes. Administered Medications: 08/24 22:37 Drug: NS 0.9% (30 ml/kg) 30 ml/kg Route: IV; Rate: bolus; Site: right antecubital; tl2 08/25 00:59 Follow up: IV Status: Completed infusion; IV Intake: 2000ml tl2 08/24 22:38 CANCELLED (wrong route): Pepcid 20 mg PO once tl2 22:38 Drug: Pepcid 20 mg Route: IVP; Site: right antecubital; tl2 08/25 00:59 Follow up: Response: No adverse reaction tl2 08/24 23:46 Drug: Potassium Chloride 20 mEq Route: IV; Rate: per protocol; Site: right antecubital; tl2 08/25 00:59 Follow up: IV Status: Infusion continued upon transfer tl2 00:47 Not Given (pt transferred with KCL 20 meq infusing): D5-1/2 NS with KCl 20 mEq/L 1000 tl2 ml IV at 125 ml/hr continuous Intake: 00:59 IV: 2000ml; Total: 2000ml. tl2 Outcome: 08/24 23:23 ER care complete, transfer ordered by . alea 08/25 00:40 Transferred by ground EMS to [facility] [place] completed. tl2 Condition: stable Discharge instructions given to family, Instructed on the need for transfer. 00:59 Patient left the ED. tl2 Signatures: Dispatcher [employer] EDMS Marty Rivera MD MD cha Quilty, Betty bq Sanford, Demi ds1 Shelli Barber RN RN lp1 Francy Isidro Taylor RN RN tl2 H[facility] [employer]: (The following items were deleted from the chart) 08/24 22:38 22:37 Pepcid 20 mg PO tl2 tl2 23:14 22:55 Safety checks: Items removed: yes. Door open/sign placed on door: yes. oe Family/friend present: no. Sitter present: Yes. oe 23:32 23:21 Safety checks: Items removed: yes. Door open/sign placed on door: yes. oe Family/friend present: yes. Sitter present: Yes. oe
[2018-08-24] MEDS ORDERED: D5.45NS W/KCL 20MEQ 0 ML IV ONE (23:45)
[2018-08-24] MEDS ORDERED: NA CHLORIDE 0.9% 500 ML ONE (23:45)
[2018-08-24] MEDS ORDERED: KCL 20 MEQ/100 mL IVPB 20 MEQ/100 ML BAG IV ONE (23:45)
[2018-08-25 01:47] LABS: Urine Blood NEGATIVE (NEG); Urine Glucose NEGATIVE (NEG); Urine Protein NEGATIVE (NEG)
--- NOTE | 2018-08-25 08:30 | RAD REPORT ---
EXAM DESCRIPTION: RAD - Chest Single View - 08/24/2018 10:36 pm CLINICAL HISTORY: Cough, shortness of breath COMPARISON: May 13 TECHNIQUE: AP portable chest image was obtained 2232 hours . FINDINGS: Lungs are clear. Heart and vasculature are normal. No measurable pleural effusion and no p neumothorax. No acute bony abnormality seen. No acute aortic findings suspected. IMPRESSION: No acute cardiopulmonary process. No significant interval change.
--- NOTE | 2018-08-25 08:36 | RAD REPORT ---
EXAM DESCRIPTION: CT - Head Brain Wo Cont - 08/25/2018 6:54 am CLINICAL HISTORY: Transient alteration of awareness. A preliminary report was provided at the time of the study and reviewed prior to final report. COMPARISON: None. TECHNIQUE: Axial 5 mm thick images of the head were obtained without IV contrast. All CT scans are performed using dose optimization technique as appropriate and may include automated exposure control or mA/KV adjustment according to patient size. FINDINGS: No intracranial hemorrhage, mass, edema or shift of mid-line structures. No acute infarcti on changes seen. No abnormal extra-axial fluid collections. Ventricles are normal. Mastoid air cells and visualized portions of the paranasal sinuses are clear. No acute bony findings. IMPRESSION: Negative non-contrast CT head examination.
--- NOTE | 2018-08-26 07:06 | EKG ---
Test Date: 2018-08-24 Test Time: 22:29:04 Antenna Rigger: [id number] MEASUREMENT RESULTS: Intervals: Rate: 111 FL: 146 QRSD: 90 QT: 344 QTc: 467 Earle: P: 42 FL: 146 QRS: 6 T: 30 INTERPRETIVE STATEMENTS: Sinus tachycardia Low voltage QRS Borderline ECG No previous ECG available for comparison Electronically Signed On 08-26-18 07:03:35 [employer] by Leroy Higgins
== END 2018-08-25 00:59 | disposition short-term general hospital (02) ==
LOC: ER 22:13
DX: T14.91XA Suicide attempt, initial encounter (principal); T43.592A Poisoning by other antipsychotics and neuroleptics, intentional self-harm, initial encounter; F41.9 Anxiety disorder, unspecified; F32.9 Major depressive disorder, single episode, unspecified; Z88.0 Allergy status to penicillin; Z88.1 Allergy status to other antibiotic agents
CPT/HCPCS: 36415; 51702; 70450; 71045; 80048; 80076; 80307; 80320; 80329; 81003; 81025; 82805; 83690; 83735; 83880; 84484; 85025; 85610; 85730; 93005; 96365; 96375; 99285; J7030

== ENCOUNTER 2019-01-01 10:47 | Emergency (ER) | payer SELFPAY ==
--- OUTSIDE RECORDS SUMMARY | 2019-01-01 10:51 | XMS REPORT | Clinical Summary ---
:1985 Author Organization [facility] Address [address] [place] [address] Care Team Providers Name Role Phone Unavailable Primary Care Provider Unavailable Allergies Active Allergy Reactions Severity Noted Date Comments Amoxicillin Hives 08/25/2018 Sulfamethoxazole-Trimethoprim 08/25/2018 Ciprofloxacin 08/25/2018 Medications Medication Sig Dispensed Refills Start Date End Date Status DULoxetine (CYMBALTA) Take 30 mg by 0 Active 30 MG mouth 2 (two) capsuleIndications: times daily. Anxiety with Depression gabapentin Take 300 mg 0 Active (NEURONTIN) 300 MG by mouth 3 capsuleIndications: (three) times anxiety/nerves daily. calcium carbonate Take 1 tablet 0 09/01/2018 Active (TUMS) 500 mg (500 mg 9 chewable tablet total) by mouth 2 (two) times daily as needed. guaiFENesin (MUCINEX) Take 1 tablet 0 09/01/2018 Active 600 mg 12 hr tablet (600 mg 9 total) by mouth 2 (two) times daily. pantoprazole Take 1 tablet 0 09/01/2018 Active (PROTONIX) 40 MG (40 mg total) tablet by mouth every morning before breakfast. QUEtiapine (SEROQUEL) Take 300 mg 0 Discontinued 300 MG by mouth 8 tabletIndications: nightly. sleeping diphenhydrAMINE Take 1 30 capsule 0 09/01/2018 (BENADRYL) 25 mg capsule (25 8 capsule mg total) by mouth every night as needed (Insomnia) for up to 10 days. Active Problems Problem Noted Date Overdose 08/25/2018 Overdose of antipsychotic 08/25/2018 Acute metabolic encephalopathy 08/25/2018 Suicide attempt 08/25/2018 Depression 08/25/2018 Anxiety 08/25/2018 Encounters Date Type Specialty Care Team Description 08/30/2018 Travel 08/27/2018 Travel 08/25/2018 - Hospital Oncology Sb Rivera Acute metabolic encephalopathy ; 09/02/2018 Encounter MD Hui Antipsychotic overdose, intentional self-harm, initial encounter (HCC); Kelvin Wells Suicide attempt (HCC); MD Surjit Acute respiratory failure, unspecified whether with hypoxia or hypercapnia ( HCC); Telma Husain, Respiratory failure requiring intubation (HCC); Hypotension, unspecified hypotension type; Sneha Storey Antipsychotic overdose, intentional self-harm, subsequent encounter; MD Malathi Severe episode of recurrent major depressive disorder, without psychotic features (HCC) 08/25/2018 Orders Only General Internal Medicine 08/24/2018 Telephone Critical Care Sb Rivera transfer Medicine MD Hui after 12/31/2017 Immunizations Name Dates Previously Given Next Due Influenza Four-QIV Non-PF 5+ YR 09/02/2018 Pneumococcal Conjugate (Prevnar) 09/02/2018, 08/29/2018 (Deferred: ) 13-Valent Social History Tobacco Use Types Packs/Day Years Used Date Current Some Day Smoker Smokeless Tobacco: Current User Alcohol Use Drinks/Week oz/Week Comments Yes Sex Assigned at Date Recorded Not on file Job Start Date Occupation Industry Not on file Not on file Not on file Travel History Travel Start Travel End No recent travel history available. Last Filed Vital Signs Vital Sign Reading Time Taken Blood Pressure 109/70 09/02/2018 11:00 AM ENTRY LEVEL PROJECT COORDINATOR Pulse 75 09/02/2018 11:00 AM ENTRY LEVEL PROJECT COORDINATOR Temperature 36.6 C (97.8 F) 09/02/2018 11:00 AM ENTRY LEVEL PROJECT COORDINATOR Respiratory Rate 18 09/02/2018 11:00 AM ENTRY LEVEL PROJECT COORDINATOR Oxygen Saturation 98% 09/02/2018 11:00 AM ENTRY LEVEL PROJECT COORDINATOR Inhaled Oxygen Concentration 21% 08/26/2018 8:15 AM ENTRY LEVEL PROJECT COORDINATOR Weight 70.2 kg (154 lb 12.2 oz) 08/27/2018 5:00 AM ENTRY LEVEL PROJECT COORDINATOR Height 162.6 cm (5' 4") 08/26/2018 4:00 AM ENTRY LEVEL PROJECT COORDINATOR Body Mass Index 26.57 08/27/2018 5:00 AM ENTRY LEVEL PROJECT COORDINATOR Plan of Treatment Not on file Procedures Procedure Name Priority Date/Time Associated Comments Diagnosis REPORT OF PROCEDURE - 09/04/2018 9:10 ENDOSCOPY SCAN AM ENTRY LEVEL PROJECT COORDINATOR RHYTHM STRIP - SCAN 09/04/2018 9:10 AM ENTRY LEVEL PROJECT COORDINATOR BASIC METABOLIC PANEL Routine 09/02/2018 6:41 Results for this (7) AM ENTRY LEVEL PROJECT COORDINATOR procedure are in the results section. MAGNESIUM Routine 08/30/2018 5:53 Results for this AM ENTRY LEVEL PROJECT COORDINATOR procedure are in the results section. BASIC METABOLIC PANEL Routine 08/30/2018 5:53 Results for this (7) AM ENTRY LEVEL PROJECT COORDINATOR procedure are in the results section. XR CHEST 1 VIEW Routine 08/28/2018 7:01 Results for this PORTABLE/BEDSIDE AM ENTRY LEVEL PROJECT COORDINATOR procedure are in the results section. CBC W/PLT COUNT & AUTO Routine 08/28/2018 6:30 Results for this DIFFERENTIAL AM ENTRY LEVEL PROJECT COORDINATOR procedure are in the results section. BASIC METABOLIC PANEL Routine 08/28/2018 6:30 Results for this (7) AM ENTRY LEVEL PROJECT COORDINATOR procedure are in the results section. CBC W/PLT COUNT & AUTO Routine 08/28/2018 6:30 Results for this DIFFERENTIAL AM ENTRY LEVEL PROJECT COORDINATOR procedure are in the results section. POCT-GLUCOSE METER Routine 08/27/2018 7:48 Results for this AM ENTRY LEVEL PROJECT COORDINATOR procedure are in the results section. CBC W/PLT COUNT & AUTO Routine 08/27/2018 4:51 Results for this DIFFERENTIAL AM ENTRY LEVEL PROJECT COORDINATOR procedure are in the results section. PHOSPHORUS Routine 08/27/2018 4:51 Results for this AM ENTRY LEVEL PROJECT COORDINATOR procedure are in the results section. MAGNESIUM Routine 08/27/2018 4:51 Results for this AM ENTRY LEVEL PROJECT COORDINATOR procedure are in the results section. BASIC METABOLIC PANEL Routine 08/27/2018 4:51 Results for this (7) AM ENTRY LEVEL PROJECT COORDINATOR procedure are in the results section. CBC W/PLT COUNT & AUTO Routine 08/27/2018 4:51 Results for this DIFFERENTIAL AM ENTRY LEVEL PROJECT COORDINATOR procedure are in the results section. POCT-GLUCOSE METER Routine 08/26/2018 10:14 Results for this PM ENTRY LEVEL PROJECT COORDINATOR procedure are in the results section. POCT-GLUCOSE METER Routine 08/26/2018 5:58 Results for this PM ENTRY LEVEL PROJECT COORDINATOR procedure are in the results section. MISCELLANEOUS LAB Routine 08/26/2018 1:52 ORDER PM ENTRY LEVEL PROJECT COORDINATOR POCT-GLUCOSE METER Routine 08/26/2018 12:07 Results for this PM ENTRY LEVEL PROJECT COORDINATOR procedure are in the results section. PROCALCITONIN STAT 08/26/2018 9:55 Results for this AM ENTRY LEVEL PROJECT COORDINATOR procedure are in the results section. POCT-GLUCOSE METER Routine 08/26/2018 8:44 Results for this AM ENTRY LEVEL PROJECT COORDINATOR procedure are in the results section. CBC W/PLT COUNT & AUTO Routine 08/26/2018 4:10 Results for this DIFFERENTIAL AM ENTRY LEVEL PROJECT COORDINATOR procedure are in the results section. PHOSPHORUS Routine 08/26/2018 4:10 Results for this AM ENTRY LEVEL PROJECT COORDINATOR procedure are in the results section. MAGNESIUM Routine 08/26/2018 4:10 Results for this AM ENTRY LEVEL PROJECT COORDINATOR procedure are in the results section. BASIC METABOLIC PANEL Routine 08/26/2018 4:10 Results for this (7) AM ENTRY LEVEL PROJECT COORDINATOR procedure are in the results section. CBC W/PLT COUNT & AUTO Routine 08/26/2018 4:10 Results for this DIFFERENTIAL AM ENTRY LEVEL PROJECT COORDINATOR procedure are in the results section. POCT-GLUCOSE METER Routine 08/25/2018 11:46 Results for this PM ENTRY LEVEL PROJECT COORDINATOR procedure are in the results section. XR CHEST 1 VIEW STAT 08/25/2018 10:54 Results for this PORTABLE/BEDSIDE PM ENTRY LEVEL PROJECT COORDINATOR procedure are in the results section. ECG 12-LEAD Routine 08/25/2018 8:03 Results for this PM ENTRY LEVEL PROJECT COORDINATOR procedure are in the results section. SCREEN, Routine 08/25/2018 12:51 Results for this URINE PM ENTRY LEVEL PROJECT COORDINATOR procedure are in the results section. POCT-GLUCOSE METER Routine 08/25/2018 11:33 Results for this AM ENTRY LEVEL PROJECT COORDINATOR procedure are in the results section. POCT-GLUCOSE METER Routine 08/25/2018 8:46 Results for this AM ENTRY LEVEL PROJECT COORDINATOR procedure are in the results section. BLOOD GAS, ARTERIAL STAT 08/25/2018 7:53 Results for this AM ENTRY LEVEL PROJECT COORDINATOR procedure are in the results section. SPUTUM CULTURE + GRAM Routine 08/25/2018 7:48 Results for this STAIN AM ENTRY LEVEL PROJECT COORDINATOR procedure are in the results section. XR ABDOMEN 1 VIEW STAT 08/25/2018 6:27 Results for this AM ENTRY LEVEL PROJECT COORDINATOR procedure are in the results section. XR CHEST 1 VIEW STAT 08/25/2018 6:27 Results for this PORTABLE/BEDSIDE AM ENTRY LEVEL PROJECT COORDINATOR procedure are in the results section. BLOOD GAS, ARTERIAL STAT 08/25/2018 3:13 Results for this AM ENTRY LEVEL PROJECT COORDINATOR procedure are in the results section. BLOOD CULTURE STAT 08/25/2018 2:36 Results for this AM ENTRY LEVEL PROJECT COORDINATOR procedure are in the results section. AMMONIA STAT 08/25/2018 2:35 Results for this AM ENTRY LEVEL PROJECT COORDINATOR procedure are in the results section. URINALYSIS W/ REFLEX Routine 08/25/2018 2:26 Results for this URINE CULTURE AM ENTRY LEVEL PROJECT COORDINATOR procedure are in the results section. HIV-1 ANTIGEN WITH Routine 08/25/2018 2:26 Results for this HIV-1/2 ANTIBODY AM ENTRY LEVEL PROJECT COORDINATOR procedure are in the results section. ETHANOL STAT 08/25/2018 2:25 Results for this AM ENTRY LEVEL PROJECT COORDINATOR procedure are in the results section. CBC W/PLT COUNT & AUTO STAT 08/25/2018 2:24 Results for this DIFFERENTIAL AM ENTRY LEVEL PROJECT COORDINATOR procedure are in the results section. RAPID DRUG SCREEN, STAT 08/25/2018 2:24 Results for this URINE AM ENTRY LEVEL PROJECT COORDINATOR procedure are in the results section. LACTIC ACID, VENOUS STAT 08/25/2018 2:24 Results for this AM ENTRY LEVEL PROJECT COORDINATOR procedure are in the results section. CREATINE KINASE (CK) STAT 08/25/2018 2:24 Results for this AM ENTRY LEVEL PROJECT COORDINATOR procedure are in the results section. PHOSPHORUS STAT 08/25/2018 2:24 Results for this AM ENTRY LEVEL PROJECT COORDINATOR procedure are in the results section. MAGNESIUM STAT 08/25/2018 2:24 Results for this AM ENTRY LEVEL PROJECT COORDINATOR procedure are in the results section. TROPONIN I STAT 08/25/2018 2:24 Results for this AM ENTRY LEVEL PROJECT COORDINATOR procedure are in the results section. LIPASE STAT 08/25/2018 2:24 Results for this AM ENTRY LEVEL PROJECT COORDINATOR procedure are in the results section. SALICYLATE LEVEL STAT 08/25/2018 2:24 Results for this AM ENTRY LEVEL PROJECT COORDINATOR procedure are in the results section. ACETAMINOPHEN LEVEL STAT 08/25/2018 2:24 Results for this AM ENTRY LEVEL PROJECT COORDINATOR procedure are in the results section. PT/APTT STAT 08/25/2018 2:24 Results for this AM ENTRY LEVEL PROJECT COORDINATOR procedure are in the results section. PROTHROMBIN TIME/INR STAT 08/25/2018 2:24 Results for this AM ENTRY LEVEL PROJECT COORDINATOR procedure are in the results section. HEPATIC FUNCTION PANEL STAT 08/25/2018 2:24 Results for this AM ENTRY LEVEL PROJECT COORDINATOR procedure are in the results section. BASIC METABOLIC PANEL STAT 08/25/2018 2:24 Results for this (7) AM ENTRY LEVEL PROJECT COORDINATOR procedure are in the results section. CBC W/PLT COUNT & AUTO STAT 08/25/2018 2:24 Results for this DIFFERENTIAL AM ENTRY LEVEL PROJECT COORDINATOR procedure are in the results section. BLOOD CULTURE STAT 08/25/2018 2:23 Results for this AM ENTRY LEVEL PROJECT COORDINATOR procedure are in the results section. ECG 12-LEAD Routine 08/25/2018 2:16 AM ENTRY LEVEL PROJECT COORDINATOR Procedure Note - Interface, External Ris In - 08/25/2018 8:20 PM ENTRY LEVEL PROJECT COORDINATOR Ventricular Rate 103 BPM Atrial Rate 103 BPM P-R Interval 184 ms QRS Duration 82 ms Q-T Interval 356 ms QTC Calculation(Bazett) 466 ms P Liberal 76 degrees R Liberal 12 degrees T Liberal 45 degrees Sinus tachycardia Low voltage QRS Borderline ECG No previous ECGs available ECG 12-LEAD STAT 08/25/2018 2:16 AM ENTRY LEVEL PROJECT COORDINATOR POCT-GLUCOSE METER Routine 08/25/2018 2:10 AM ENTRY LEVEL PROJECT COORDINATOR after 12/31/2017 Results EKG-SCANNED (09/04/2018 9:10 AM ENTRY LEVEL PROJECT COORDINATOR) Narrative Performed At RHYTHM STRIP - SCAN (09/04/2018 9:10 AM ENTRY LEVEL PROJECT COORDINATOR) Narrative Performed At Basic Metabolic Panel (09/02/2018 6:41 AM ENTRY LEVEL PROJECT COORDINATOR)Only the most recent of6 resultswithin the time period is included. Sodium 139 136 - 145 meq/L [facility] Potassium 3.9 3.5 - 5.1 meq/L [facility] Chloride 103 98 - 107 meq/L [facility] CO2 28 22 - 29 meq/L [facility] BUN 12 7 - 21 mg/dL [facility] Creatinine 0.72 0.57 - 1.25 mg/dL [facility] Glucose 90 70 - 105 mg/dL [facility] Calcium 9.1 8.4 - 10.2 mg/dL [facility] EGFR 93Comment: ESTIMATED GFR IS mL/min/1.73 sq m [facility] NOT ACCURATE CREATININE [facility] CLEARANCE IN PREDICTING GLOMERULAR FILTRATION RATE. ESTIMATED GFR IS NOT APPLICABLE FOR DIALYSIS PATIENTS. Specimen Blood - Arm, Right Performing Organization Address City/State/Zipcode Phone Number [facility] [address] [place] [address] [phone] CENTER Magnesium (08/30/2018 5:53 AM ENTRY LEVEL PROJECT COORDINATOR)Only the most recent of4 resultswithin the time period is included. Magnesium 2.4 1.6 - 2.6 mg/dL [facility] Specimen Blood - Arm, Left Performing Organization Address City/State/Zipcode Phone Number [facility] [address] [place] [address] CENTER XR chest 1 view portable / bedside (08/28/2018 7:01 AM ENTRY LEVEL PROJECT COORDINATOR)Only the most recent of3 resultswithin the time period is included. Narrative Performed At FINAL REPORT [facility] RAD, CHEST, 1 VIEW, NON DEPT INDICATION: cough COMPARISON: August 25, 2018 FINDINGS: Portable frontal view of the chest. IMPRESSION: Support Lines: None. Lungs and pleura: Clear lungs. Costophrenic sulci are sharp. No pneumothorax. Heart and mediastinum: Unremarkable. Additional findings: None. Signed: JR Miner Robert MD Report Verified Date/Time:08/28/2018 08:10:09 Reading Location: [address] Neuro Reading Room Procedure Note Interface, External Ris In - 08/28/2018 8:13 AM ENTRY LEVEL PROJECT COORDINATOR FINAL REPORT RAD, CHEST, 1 VIEW, NON DEPT INDICATION: cough COMPARISON: August 25, 2018 FINDINGS: Portable frontal view of the chest. IMPRESSION: Support Lines: None. Lungs and pleura: Clear lungs. Costophrenic sulci are sharp. No pneumothorax. Heart and mediastinum: Unremarkable. Additional findings: None. Signed: JR Miner Robert MD Report Verified Date/Time: 08/28/2018 08:10:09 Reading Location: [address] Neuro Reading Room Performing Organization Address City/State/Zipcode Phone Number [facility] CBC with platelet count + automated diff (08/28/2018 6:30 AM ENTRY LEVEL PROJECT COORDINATOR)Only the most recent of4 resultswithin the time period is included. WBC 5.4 3.5 - 10.5 K/L [facility] RBC 3.94 3.93 - 5.22 M/L [facility] Hemoglobin 12.2 11.2 - 15.7 GM/DL [facility] Hematocrit 36.7 34.1 - 44.9 % [facility] MCV 93.1 79.4 - 94.8 fL [facility] MCH 31.0 25.6 - 32.2 pg [facility] MCHC 33.2 32.2 - 35.5 GM/DL [facility] RDW 12.3 11.7 - 14.4 % [facility] Platelets 229 150 - 450 K/CU MM [facility] MPV 9.2 (L) 9.4 - 12.3 fL [facility] nRBC 0 0 - 0 /100 WBC [facility] % Neutros 63 % [facility] % Lymphs 25 % [facility] % Monos 8 % [facility] % Eos 3 % [facility] % Baso 0 % [facility] # Neutros 3.42 1.56 - 6.13 K/L [facility] # Lymphs 1.35 1.18 - 3.74 K/L [facility] # Monos 0.43 (H) 0.24 - 0.36 K/L [facility] # Eos 0.17 0.04 - 0.36 K/L [facility] # Baso 0.02 0.01 - 0.08 K/L [facility] Immature Granulocytes-Relative 1 0 - 1 % [facility] Specimen Blood Performing Organization Address City/State/Zipcode Phone Number [facility] [address] [place] [address] [phone] CENTER POC-Glucose meter (08/27/2018 7:48 AM ENTRY LEVEL PROJECT COORDINATOR)Only the most recent of9 resultswithin the time period is included. POC-Glucose Meter 115 (H)Comment: TESTED AT 70 - 110 mg/dL [facility] [address] [facility] [id number] Specimen Blood Performing Organization Address [facility] Phone Number [address] [phone] [place] Phosphorus (08/27/2018 4:51 AM ENTRY LEVEL PROJECT COORDINATOR)Only the most recent of3 resultswithin the time period is included. Phosphorus 2.8 2.3 - 4.7 mg/dL [facility] Specimen Blood Performing Organization Address [facility] Phone Number [address] [address] [phone] [place] Resp panel (08/26/2018 1:52 PM ENTRY LEVEL PROJECT COORDINATOR) Scan Result [facility] Specimen Sputum Narrative Performed At Performing Organization Address City/[facility] Phone Number [facility] [address] [place], [place] Procalcitonin (08/26/2018 9:55 AM ENTRY LEVEL PROJECT COORDINATOR) Procalcitonin 0.16 (H) <0.05 ng/mL [facility] Specimen Blood Narrative Performed At SEPSIS RISK (ng/mL) [facility] Low:0.05-0.50 Intermediate: 0.51-2.00 High: >=2.01 Performing Organization Address [facility] Phone Number [address] [address] [place] ECG 12 lead (08/25/2018 8:03 PM ENTRY LEVEL PROJECT COORDINATOR)Only the most recent of2 resultswithin the time period is included. Narrative Performed At Ventricular Rate 88 BPM GE MUSE Atrial Rate 88 BPM P-R Interval 158 ms QRS Duration 86 ms Q-T Interval 358 ms QTC Calculation(Bazett) 433 ms P Liberal 58 degrees R Liberal 21 degrees T Liberal 41 degrees Normal sinus rhythm Normal ECG No previous ECGs available Confirmed by MIWale GILBERT MICHAEL ([id number]) on 08/26/2018 7:09:34 AM Procedure Note Interface, External Ris In - 08/26/2018 7:09 AM ENTRY LEVEL PROJECT COORDINATOR Ventricular Rate 88 BPM Atrial Rate 88 BPM P-R Interval 158 ms QRS Duration 86 ms Q-T Interval 358 ms QTC Calculation(Bazett) 433 ms P Liberal 58 degrees R Liberal 21 degrees T Liberal 41 degrees Normal sinus rhythm Normal ECG No previous ECGs available Confirmed by Wale MALAGON MICHAEL ([id number]) on 08/26/2018 7:09:34 AM Performing Organization Address City/[facility] Phone Number [facility] Screen, urine (08/25/2018 12:51 PM ENTRY LEVEL PROJECT COORDINATOR) Preg Test, Ur Negative [facility] Specimen Urine Performing Organization Address [facility] Phone Number [facility] [address] [place] [address] CENTER Blood gas, arterial (08/25/2018 7:53 AM ENTRY LEVEL PROJECT COORDINATOR)Only the most recent of2 resultswithin the time period is included. pH, Arterial 7.41 7.35 - 7.45 [facility] pCO2, Arterial 38 35 - 45 mmHg [facility] pO2, Arterial 144 (H) 80 - 90 mmHg [facility] O2 Sat, Arterial 98.9 (H) 96.0 - 97.0 % [facility] HCO3, Arterial 24 21 - 29 mmol/L [facility] Base Excess, Arterial -0.8 -2.0 - 3.0 mmol/L [facility] Patient Temperature 36.2 C [facility] FIO2 40.0 % [facility] Specimen Blood, Arterial Performing Organization Address [facility] Phone Number [facility] [address] [place] [address] CENTER Sputum Culture + Gram Stain (08/25/2018 7:48 AM ENTRY LEVEL PROJECT COORDINATOR) Result STAPHYLOCOCCUS AUREUS (A) [facility] Gram Stain Result 4+ WBCs [facility] Gram Stain Result No epithelial cells [facility] Gram Stain Result No organisms seen [facility] Specimen Sputum - Endotracheal Narrative Performed At 2+ Normal respiratory leon present [facility] Organism Antibiotic Method Susceptibility Staphylococcus aureus Clindamycin >=4: Resistant Staphylococcus aureus Erythromycin >=8: Resistant Staphylococcus aureus Linezolid 2: Susceptible Staphylococcus aureus Oxacillin <=0.25: Susceptible Staphylococcus aureus Rifampin <=0.5: Susceptible Staphylococcus aureus Tetracycline <=1: Susceptible Staphylococcus aureus Trimethoprim + Sulfamethoxazole <=10: Susceptible Staphylococcus aureus Vancomycin <=0.5: Susceptible Performing Organization Address City/State/Zipcode Phone Number [facility] [address] [place] [address] CENTER XR abdomen / KUB 1 view (08/25/2018 6:27 AM ENTRY LEVEL PROJECT COORDINATOR) Narrative Performed At FINAL REPORT [facility] Abdomen one view Comparison: None. Reason for exam:ng tube placement Findings/impression: Supine view of the abdomen demonstrates a feeding tube with tip in the distal stomach. There is mild gaseous distention of multiple small bowel loops, nonspecific but may represent an ileus. There are no abnormal calcifications. There are linearly oriented opacities in the left lower lobe which may represent atelectasis and/or pneumonia. The osseous structures are unremarkable. Signed: Lsia Shaikh MD Report Verified Date/Time:08/25/2018 06:43:19 Reading Location: [facility] B1 C013Y CT Body Reading Room Procedure Note Interface, External Ris In - 08/25/2018 6:45 AM ENTRY LEVEL PROJECT COORDINATOR FINAL REPORT Abdomen one view Comparison: None. Reason for exam: ng tube placement Findings/impression: Supine view of the abdomen demonstrates a feeding tube with tip in the distal stomach. There is mild gaseous distention of multiple small bowel loops, nonspecific but may represent an ileus. There are no abnormal calcifications. There are linearly oriented opacities in the left lower lobe which may represent atelectasis and/or pneumonia. The osseous structures are unremarkable. Signed: Lisa Shaikh MD Report Verified Date/Time: 08/25/2018 06:43:19 Reading Location: [facility] B1 C013Y CT Body Reading Room Performing Organization Address [facility] Phone Number [facility] Blood culture (08/25/2018 2:36 AM ENTRY LEVEL PROJECT COORDINATOR)Only the most recent of2 resultswithin the time period is included. Result No growth in 5 days [facility] Specimen Blood - Line, Venous Performing Organization Address [facility] Phone Number [address] [address] [phone] CENTER Ammonia (08/25/2018 2:35 AM ENTRY LEVEL PROJECT COORDINATOR) Ammonia 16 (L) 18 - 72 mol/L [facility] Specimen Blood Performing Organization Address [facility] Phone Number [address] [address] [phone] CENTER Urinalysis w/Microscopic + Reflex to Culture (08/25/2018 2:26 AM ENTRY LEVEL PROJECT COORDINATOR) Color, UA Light Yellow [facility] Clarity, UA Clear [facility] Specific [place], UA 1.010 1.001 - 1.035 [facility] pH, UA 6.0 5.0 - 8.0 [facility] Protein, UA 20 mg/dL (A) Negative [facility] Glucose, UA Negative Negative [facility] Ketones, UA Negative Negative [facility] Bilirubin, UA Negative Negative [facility] Blood, UA Small (A) Negative [facility] Nitrite, UA Negative Negative [facility] Leukocytes, UA Negative Negative [facility] Urobilinogen, UA 0.2 0.2 - 1.0 mg/dL [facility] RBC, UA 1 /HPF [facility] WBC, UA 1 /HPF [facility] Bacteria, UA Rare [facility] Mucus Occasional [facility] Hyaline Casts, UA 1 /LPF [facility] Granular Casts, UA 1 /LPF [facility] Specimen Source [facility] Specimen Urine - Urine, [place] Performing Organization Address [facility] Phone Number [address] [address] [place] HIV-1 Antigen with HIV-1/2 Antibody (08/25/2018 2:26 AM ENTRY LEVEL PROJECT COORDINATOR) HIV-1 Antigen with HIV 1&2 NON-REACTIVE Nonreactive [facility] Antibody [facility] [place] Specimen Blood Performing Organization Address City/State/Zipcode Phone Number [address] [address] [place] Ethanol (08/25/2018 2:25 AM ENTRY LEVEL PROJECT COORDINATOR) Ethanol Lvl <10 <=10 mg/dL [facility] Specimen Blood Performing Organization Address [facility] Phone Number [address] [address] C[place] PT/aPTT (08/25/2018 2:24 AM ENTRY LEVEL PROJECT COORDINATOR) Protime 14.6 11.7 - 14.7 seconds [facility] INR 1.1 <=5.9 [facility] PTT 28.4 22.5 - 36.0 seconds [facility] Specimen Blood Narrative Performed At RECOMMENDED COUMADIN/WARFARIN INR THERAPY [facility] RANGES STANDARD DOSE: 2.0 - 3.0 Includes: PROPHYLAXIS for venous thrombosis, systemic embolization; TREATMENT for venous thrombosis and/or pulmonary embolus. HIGH RISK: Target INR is 2.5-3.5 for patients with mechanical heart valves. Performing Organization Address [facility] Phone Number [address] [address] [place] Troponin I (08/25/2018 2:24 AM ENTRY LEVEL PROJECT COORDINATOR) Troponin I <0.01 0.00 - 0.03 ng/mL [facility] Specimen Blood Narrative Performed At Troponin I (TnI) levels must be interpreted [facility] in the context of the presenting symptoms and the clinical findings. Elevated TnI levels indicate myocardial damage, but are not specific for ischemic heart disease. Elevated TnI levels are seen in patients with other cardiac conditions (including myocarditis and congestive heart failure), and slight TnI elevations occur in patients with other conditions, including sepsis, renal failure, acidosis, acute neurological disease, and persistent tachyarrhythmia. Performing Organization Address [facility] Phone Number [address] [address] [phone] [place] Lactic acid, venous, whole blood (08/25/2018 2:24 AM ENTRY LEVEL PROJECT COORDINATOR) Lactate, Venous 1.8 0.5 - 2.2 mmol/L [facility] Specimen Blood Performing Organization Address [facility] Phone Number [address] [address] [place] Rapid drug screen, urine (08/25/2018 2:24 AM ENTRY LEVEL PROJECT COORDINATOR) Barbiturate Screen Negative Negative [facility] Benzodiazepine Screen Negative Negative [facility] Cocaine (Metab.) Screen Negative Negative [facility] Methadone Screen Negative Negative [facility] Opiate Screen Negative Negative [facility] Cannabinoid Screen Negative Negative [facility] Amph/Methamph Screen Negative Negative [facility] Phencyclidine Screen Negative Negative [facility] Oxycodone Screen Negative Negative [facility] Specimen Urine - Urine, [place] Narrative Performed At [facility] CONC. Cocaine 300 ng/mL [id number] ng/mL Qvxzstccwepkkw878 ng/mL Barbiturate 200 ng/mL Kdokawsuwxtqo58 ng/mL Sgaeiw586 ng/mL Methadone 300 ng/mL Amphetamine/ 1000 ng/mL Methamphetamine Oxycodone 300 ng/mL This assay provides an unconfirmed qualitative test result for the clinical management of patients in emergency situations. Chain of custody not maintained. Some [id number]-[id number] medications, as well as adulterants, may cause inaccurate results. Clinical correlation should be applied. A more comprehensive drug screen or confirmation of a detected drug may be performed upon request. Performing Organization Address [facility] Phone Number [address] [address] [phone] CENTER Prothrombin time/INR (08/25/2018 2:24 AM ENTRY LEVEL PROJECT COORDINATOR) Protime 14.6 11.7 - 14.7 seconds [facility] INR 1.1 <=5.9 [facility] Specimen Blood Narrative Performed At RECOMMENDED COUMADIN/WARFARIN INR THERAPY [facility] RANGES STANDARD DOSE: 2.0 - 3.0 Includes: PROPHYLAXIS for venous thrombosis, systemic embolization; TREATMENT for venous thrombosis and/or pulmonary embolus. HIGH RISK: Target INR is 2.5-3.5 for patients with mechanical heart valves. Performing Organization Address [facility] Phone Number [address] [address] [phone] CENTER Lipase (08/25/2018 2:24 AM ENTRY LEVEL PROJECT COORDINATOR) Lipase 26 8 - 78 U/L [facility] Specimen Blood Performing Organization Address [facility] Phone Number [address] [address] CENTER Creatine Kinase (CK) (08/25/2018 2:24 AM ENTRY LEVEL PROJECT COORDINATOR) Total CK 49 29 - 200 U/L [facility] Specimen Blood Performing Organization Address City/[facility]/Zipcode Phone Number [address] [address] [place] Acetaminophen level (08/25/2018 2:24 AM ENTRY LEVEL PROJECT COORDINATOR) Acetaminophen Level <5.7 (L) 10.0 - 30.0 ug/mL [facility] Specimen Blood Narrative Performed At Therapeutic Range: 10.0-30.0 g/mL [facility] Toxic Levels:>200.0 g/mL Performing Organization Address [facility] Phone Number [address] [address] [place] Salicylate level (08/25/2018 2:24 AM ENTRY LEVEL PROJECT COORDINATOR) Salicylate Lvl <5.0 (L) 15.0 - 30.0 mg/dL [facility] Specimen Blood Narrative Performed At Therapeutic Range: 15.0-30.0 mg/dL [facility] Toxic: >30.0 mg/dL Lethal:>70.0 mg/dL Performing Organization Address [facility] Phone Number [address] [address] [place] Hepatic function panel (08/25/2018 2:24 AM ENTRY LEVEL PROJECT COORDINATOR) Protein, Total 5.9 (L) 6.0 - 8.3 gm/dL [facility] Albumin 3.6 3.5 - 5.0 g/dL [facility] Total Bilirubin 0.6 0.2 - 1.2 mg/dL [facility] Bilirubin, Direct 0.2 0.1 - 0.5 mg/dL [facility] Alkaline Phosphatase 68 40 - 150 U/L [facility] AST 14 5 - 34 U/L [facility] ALT 11 6 - 55 U/L [facility] Specimen Blood Performing Organization Address City/State/Zipcode Phone Number [facility] [address] [place] [address] CENTER after 12/31/2017 Advance Directives For more information, please contact:[address] [phone] Code Status Date Activated Date Inactivated Comments Full Code 08/25/2018 2:20 AM This code status was determined by: Patient
--- OUTSIDE RECORDS SUMMARY | 2019-01-01 10:52 | XMS REPORT ---
:1985 [facility] [address] [place] [id number] Care Team Providers Name Role Phone FRANCIS CURRIE Unavailable Unavailable Problems This patient has no known problems. Allergies, Adverse Reactions, Alerts This patient has no known allergies or adverse reactions. Medications This patient has no known medications. Results Test Description Test Time Test Comments Text Results Atomic Results Result Comments BASIC METABOLIC PANEL 2018-09-02 07:13:00 Test Item Value Reference Range Comments SODIUM (BEAKER) (test 139 meq/L 136-145 ktvg=042) POTASSIUM (BEAKER) (test 3.9 meq/L 3.5-5.1 zpba=892) CHLORIDE (BEAKER) (test 103 meq/L 98-107 fydg=335) CO2 (BEAKER) (test oexy=477) 28 meq/L 22-29 BLOOD UREA NITROGEN (BEAKER) 12 mg/dL 7-21 (test mulv=888) CREATININE (BEAKER) (test 0.72 mg/dL 0.57-1.25 jyyq=378) GLUCOSE RANDOM (BEAKER) 90 mg/dL 70-105 (test vast=438) CALCIUM (BEAKER) (test 9.1 mg/dL 8.4-10.2 zppc=115) EGFR (BEAKER) (test 93 mL/min/1.73 sq m ESTIMATED GFR IS NOT gsbn=3616) ACCURATE CREATININE CLEARANCE IN PREDICTING GLOMERULAR FILTRATION RATE. ESTIMATED GFR IS NOT APPLICABLE FOR DIALYSIS PATIENTS. BLOOD [id number] 10:36:00 Test Item Value Reference Range Comments CULTURE (BEAKER) (test nxvq=6148) No growth in 5 days BLOOD [id number] 10:35:00 Test Item Value Reference Range Comments CULTURE (BEAKER) (test fcym=6218) No growth in 5 days [id number] 07:09:00 Test Item Value Reference Range Comments MAGNESIUM (BEAKER) (test pjmn=204) 2.4 mg/dL 1.6-2.6 BASIC METABOLIC [id number] 07:09:00 Test Item Value Reference Range Comments SODIUM (BEAKER) (test 141 meq/L 136-145 qogb=901) POTASSIUM (BEAKER) (test 4.0 meq/L 3.5-5.1 ukte=994) CHLORIDE (BEAKER) (test 107 meq/L 98-107 ljts=553) CO2 (BEAKER) (test 27 meq/L 22-29 lrdj=713) BLOOD UREA NITROGEN 10 mg/dL 7-21 (BEAKER) (test uazn=137) CREATININE (BEAKER) (test 0.72 mg/dL 0.57-1.25 ftlw=667) GLUCOSE RANDOM (BEAKER) 97 mg/dL 70-105 (test ioeb=843) CALCIUM (BEAKER) (test 9.4 mg/dL 8.4-10.2 dcae=152) EGFR (BEAKER) (test 93 mL/min/1.73 sq m ESTIMATED GFR IS NOT opff=6254) ACCURATE CREATININE CLEARANCE IN PREDICTING GLOMERULAR FILTRATION RATE. ESTIMATED GFR IS NOT APPLICABLE FOR DIALYSIS PATIENTS. SPUTUM CULTURE + GRAM [id number] 15:12:00 Test Item Value Reference Range Comments CULTURE (BEAKER) (test STAPHYLOCOCCUS AUREUS 2+ Staphylococcus ogqc=6293) aureus Clindamycin (test code=10) Erythromycin (test code=4) Linezolid (test code=40) Nitrofurantoin (test code=23) Oxacillin (test code=14) Rifampin (test code=43) Tetracycline (test code=2) Trimethoprim + Sulfamethoxazole (test code=47) Vancomycin (test code=13) GRAM STAIN RESULT 4+ WBCs (BEAKER) (test wwip=6311) GRAM STAIN RESULT No epithelial cells (BEAKER) (test otkx=528301) GRAM STAIN RESULT No organisms seen (BEAKER) (test qdtb=776897) 2+ Normal respiratory leon presentRAD, CHEST, 1 VIEW, NON [id number] 08:10: 00Reason for exam:->coughShould this be performed at the bedside?-> YesFINAL REPORT RAD, CHEST, 1 VIEW, NON DEPT INDICATION: cough COMPARISON: August 25, 2018 FINDINGS: Portable frontal view of the chest. IMPRESSION: Support Lines: None. Lungs and pleura: Clear lungs. Costophrenic sulci are sharp. No pneumothorax.Heart and mediastinum: Unremarkable. Additional findings: None. Signed: JR Miner Robert MDReport Verified Date/Time: 08/28/2018 08:10:09 Reading Location: [address] Neuro Reading Room BASIC METABOLIC [id number] 07:34:00 Test Item Value Reference Range Comments SODIUM (BEAKER) (test 141 meq/L 136-145 gjbg=503) POTASSIUM (BEAKER) (test 3.9 meq/L 3.5-5.1 xtpy=306) CHLORIDE (BEAKER) (test 108 meq/L 98-107 pphp=096) CO2 (BEAKER) (test 26 meq/L 22-29 kquw=068) BLOOD UREA NITROGEN 9 mg/dL 7-21 (BEAKER) (test xxva=067) CREATININE (BEAKER) (test 0.67 mg/dL 0.57-1.25 dopx=893) GLUCOSE RANDOM (BEAKER) 80 mg/dL 70-105 (test aogl=235) CALCIUM (BEAKER) (test 9.0 mg/dL 8.4-10.2 yiyg=925) EGFR (BEAKER) (test 101 mL/min/1.73 sq m ESTIMATED GFR IS NOT jwdh=8417) ACCURATE CREATININE CLEARANCE IN PREDICTING GLOMERULAR FILTRATION RATE. ESTIMATED GFR IS NOT APPLICABLE FOR DIALYSIS PATIENTS. CBC W/PLT COUNT & AUTO [id number] 07:02:00 Test Item Value Reference Range Comments WHITE BLOOD CELL COUNT (BEAKER) (test qgea=736) 5.4 K/ L 3.5-10.5 RED BLOOD CELL COUNT (BEAKER) (test weel=487) 3.94 M/ L 3.93-5.22 HEMOGLOBIN (BEAKER) (test nzel=521) 12.2 GM/DL 11.2-15.7 HEMATOCRIT (BEAKER) (test dbgp=667) 36.7 % 34.1-44.9 MEAN CORPUSCULAR VOLUME (BEAKER) (test scte=892) 93.1 fL 79.4-94.8 MEAN CORPUSCULAR HEMOGLOBIN (BEAKER) (test 31.0 pg 25.6-32.2 ezmb=255) MEAN CORPUSCULAR HEMOGLOBIN CONC (BEAKER) (test 33.2 GM/DL 32.2-35.5 boie=075) RED CELL DISTRIBUTION WIDTH (BEAKER) (test 12.3 % 11.7-14.4 lxov=433) PLATELET COUNT (BEAKER) (test xltu=565) 229 K/CU MM 150-450 MEAN PLATELET VOLUME (BEAKER) (test dykg=393) 9.2 fL 9.4-12.3 NUCLEATED RED BLOOD CELLS (BEAKER) (test 0 /100 WBC 0-0 wims=493) NEUTROPHILS RELATIVE PERCENT (BEAKER) (test 63 % mdkw=379) LYMPHOCYTES RELATIVE PERCENT (BEAKER) (test 25 % ugve=920) MONOCYTES RELATIVE PERCENT (BEAKER) (test 8 % yeqe=437) EOSINOPHILS RELATIVE PERCENT (BEAKER) (test 3 % bobv=244) BASOPHILS RELATIVE PERCENT (BEAKER) (test 0 % mcud=616) NEUTROPHILS ABSOLUTE COUNT (BEAKER) (test 3.42 K/ L 1.56-6.13 yuxb=490) LYMPHOCYTES ABSOLUTE COUNT (BEAKER) (test 1.35 K/ L 1.18-3.74 zmkz=430) MONOCYTES ABSOLUTE COUNT (BEAKER) (test 0.43 K/ L 0.24-0.36 vyps=501) EOSINOPHILS ABSOLUTE COUNT (BEAKER) (test 0.17 K/ L 0.04-0.36 zglx=853) BASOPHILS ABSOLUTE COUNT (BEAKER) (test 0.02 K/ L 0.01-0.08 pxue=206) IMMATURE GRANULOCYTES-RELATIVE PERCENT (BEAKER) 1 % 0-1 (test nwew=5607) POCT-GLUCOSE [id number] 07:54:00 Test Item Value Reference Range Comments POC-GLUCOSE METER (BEAKER) 115 mg/dL 70-110 TESTED AT [facility] [address] [facility] (test zhhg=1713) [facility] [address] [id number] 05:27:00 Test Item Value Reference Range Comments PHOSPHORUS (BEAKER) (test oxia=822) 2.8 mg/dL 2.3-4.7 [id number] 05:27:00 Test Item Value Reference Range Comments MAGNESIUM (BEAKER) (test xgcc=469) 2.0 mg/dL 1.6-2.6 BASIC METABOLIC [id number] 05:27:00 Test Item Value Reference Range Comments SODIUM (BEAKER) (test 141 meq/L 136-145 stld=846) POTASSIUM (BEAKER) (test 3.7 meq/L 3.5-5.1 qmpy=011) CHLORIDE (BEAKER) (test 109 meq/L 98-107 xtar=121) CO2 (BEAKER) (test 25 meq/L 22-29 artf=862) BLOOD UREA NITROGEN 8 mg/dL 7-21 (BEAKER) (test bzmd=901) CREATININE (BEAKER) (test 0.72 mg/dL 0.57-1.25 crqg=058) GLUCOSE RANDOM (BEAKER) 92 mg/dL 70-105 (test hfyq=465) CALCIUM (BEAKER) (test 8.7 mg/dL 8.4-10.2 zqmd=848) EGFR (BEAKER) (test 93 mL/min/1.73 sq m ESTIMATED GFR IS NOT pgmz=4239) ACCURATE CREATININE CLEARANCE IN PREDICTING GLOMERULAR FILTRATION RATE. ESTIMATED GFR IS NOT APPLICABLE FOR DIALYSIS PATIENTS. CBC W/PLT COUNT & AUTO [id number] 05:07:00 Test Item Value Reference Range Comments WHITE BLOOD CELL COUNT (BEAKER) (test jiua=915) 6.4 K/ L 3.5-10.5 RED BLOOD CELL COUNT (BEAKER) (test laml=789) 3.66 M/ L 3.93-5.22 HEMOGLOBIN (BEAKER) (test jzei=307) 11.1 GM/DL 11.2-15.7 HEMATOCRIT (BEAKER) (test reuh=243) 34.0 % 34.1-44.9 MEAN CORPUSCULAR VOLUME (BEAKER) (test pqnj=621) 92.9 fL 79.4-94.8 MEAN CORPUSCULAR HEMOGLOBIN (BEAKER) (test 30.3 pg 25.6-32.2 qlrd=192) MEAN CORPUSCULAR HEMOGLOBIN CONC (BEAKER) (test 32.6 GM/DL 32.2-35.5 ajwb=742) RED CELL DISTRIBUTION WIDTH (BEAKER) (test 12.5 % 11.7-14.4 jywt=641) PLATELET COUNT (BEAKER) (test rpjb=796) 206 K/CU MM 150-450 MEAN PLATELET VOLUME (BEAKER) (test dblc=679) 9.4 fL 9.4-12.3 NUCLEATED RED BLOOD CELLS (BEAKER) (test 0 /100 WBC 0-0 tihi=909) NEUTROPHILS RELATIVE PERCENT (BEAKER) (test 78 % qbcj=952) LYMPHOCYTES RELATIVE PERCENT (BEAKER) (test 13 % keba=766) MONOCYTES RELATIVE PERCENT (BEAKER) (test 7 % pfsv=520) EOSINOPHILS RELATIVE PERCENT (BEAKER) (test 1 % ccrk=035) BASOPHILS RELATIVE PERCENT (BEAKER) (test 0 % nkrj=977) NEUTROPHILS ABSOLUTE COUNT (BEAKER) (test 5.02 K/ L 1.56-6.13 vnxs=776) LYMPHOCYTES ABSOLUTE COUNT (BEAKER) (test 0.82 K/ L 1.18-3.74 meuw=229) MONOCYTES ABSOLUTE COUNT (BEAKER) (test 0.44 K/ L 0.24-0.36 xnxn=684) EOSINOPHILS ABSOLUTE COUNT (BEAKER) (test 0.08 K/ L 0.04-0.36 cbml=986) BASOPHILS ABSOLUTE COUNT (BEAKER) (test 0.02 K/ L 0.01-0.08 dxcj=964) IMMATURE GRANULOCYTES-RELATIVE PERCENT (BEAKER) 1 % 0-1 (test pfxz=6642) POCT-GLUCOSE [id number] 22:21:00 Test Item Value Reference Range Comments POC-GLUCOSE METER (BEAKER) 124 mg/dL 70-110 TESTED AT [address] (test lhht=3850) [facility] [address] POCT-GLUCOSE [id number] 18:26:00 Test Item Value Reference Range Comments POC-GLUCOSE METER (BEAKER) 141 mg/dL 70-110 TESTED AT [address] (test gkav=3672) [facility] [address] POCT-GLUCOSE [id number] 12:49:00 Test Item Value Reference Range Comments POC-GLUCOSE METER (BEAKER) 169 mg/dL 70-110 TESTED AT [address] (test avdc=1769) [place] [id number] 12:31:00 Test Item Value Reference Range Comments PROCALCITONIN (BEAKER) (test buyv=6138) 0.16 ng/mL <0.05 SEPSIS RISK (ng/mL)Low: 0.05-0.50Intermediate: 0.51-2.00High: & gt;=2.01POCT-GLUCOSE [id number] 09:08:00 Test Item Value Reference Range Comments POC-GLUCOSE METER (BEAKER) 115 mg/dL 70-110 TESTED AT [facility] [address] [facility] (test vmev=7024) [facility] [address] [id number] 04:49:00 Test Item Value Reference Range Comments PHOSPHORUS (BEAKER) (test zjuw=897) 3.4 mg/dL 2.3-4.7 [id number] 04:49:00 Test Item Value Reference Range Comments MAGNESIUM (BEAKER) (test wqwg=287) 2.2 mg/dL 1.6-2.6 BASIC METABOLIC [id number] 04:49:00 Test Item Value Reference Range Comments SODIUM (BEAKER) (test 139 meq/L 136-145 wqqe=714) POTASSIUM (BEAKER) (test 3.7 meq/L 3.5-5.1 xeyk=285) CHLORIDE (BEAKER) (test 109 meq/L 98-107 etsb=549) CO2 (BEAKER) (test 23 meq/L 22-29 lleq=110) BLOOD UREA NITROGEN 6 mg/dL 7-21 (BEAKER) (test kbpo=809) CREATININE (BEAKER) (test 0.79 mg/dL 0.57-1.25 uinq=051) GLUCOSE RANDOM (BEAKER) 117 mg/dL 70-105 (test druc=875) CALCIUM (BEAKER) (test 8.7 mg/dL 8.4-10.2 mixe=261) EGFR (BEAKER) (test 83 mL/min/1.73 sq m ESTIMATED GFR IS NOT qotw=3280) ACCURATE CREATININE CLEARANCE IN PREDICTING GLOMERULAR FILTRATION RATE. ESTIMATED GFR IS NOT APPLICABLE FOR DIALYSIS PATIENTS. CBC W/PLT COUNT & AUTO [id number] 04:30:00 Test Item Value Reference Range Comments WHITE BLOOD CELL COUNT (BEAKER) (test xskm=280) 12.8 K/ L 3.5-10.5 RED BLOOD CELL COUNT (BEAKER) (test ddyh=065) 3.53 M/ L 3.93-5.22 HEMOGLOBIN (BEAKER) (test qoep=671) 11.1 GM/DL 11.2-15.7 HEMATOCRIT (BEAKER) (test kxkv=557) 32.8 % 34.1-44.9 MEAN CORPUSCULAR VOLUME (BEAKER) (test qtsu=867) 92.9 fL 79.4-94.8 MEAN CORPUSCULAR HEMOGLOBIN (BEAKER) (test 31.4 pg 25.6-32.2 azob=407) MEAN CORPUSCULAR HEMOGLOBIN CONC (BEAKER) (test 33.8 GM/DL 32.2-35.5 lymm=611) RED CELL DISTRIBUTION WIDTH (BEAKER) (test 12.4 % 11.7-14.4 mwbu=391) PLATELET COUNT (BEAKER) (test vzsb=785) 179 K/CU MM 150-450 MEAN PLATELET VOLUME (BEAKER) (test xtti=350) 9.2 fL 9.4-12.3 NUCLEATED RED BLOOD CELLS (BEAKER) (test 0 /100 WBC 0-0 gbmf=241) NEUTROPHILS RELATIVE PERCENT (BEAKER) (test 87 % hnrp=480) LYMPHOCYTES RELATIVE PERCENT (BEAKER) (test 7 % dhun=982) MONOCYTES RELATIVE PERCENT (BEAKER) (test 4 % qgqm=071) EOSINOPHILS RELATIVE PERCENT (BEAKER) (test 1 % ozjd=272) BASOPHILS RELATIVE PERCENT (BEAKER) (test 0 % pzsg=675) NEUTROPHILS ABSOLUTE COUNT (BEAKER) (test 11.15 K/ L 1.56-6.13 wolg=335) LYMPHOCYTES ABSOLUTE COUNT (BEAKER) (test 0.92 K/ L 1.18-3.74 mxpb=196) MONOCYTES ABSOLUTE COUNT (BEAKER) (test 0.54 K/ L 0.24-0.36 wujr=569) EOSINOPHILS ABSOLUTE COUNT (BEAKER) (test 0.09 K/ L 0.04-0.36 tddv=732) BASOPHILS ABSOLUTE COUNT (BEAKER) (test 0.03 K/ L 0.01-0.08 hrks=333) IMMATURE GRANULOCYTES-RELATIVE PERCENT (BEAKER) 1 % 0-1 (test tpkf=9983) POCT-GLUCOSE [id number] 23:47:00 Test Item Value Reference Range Comments POC-GLUCOSE METER (BEAKER) 120 mg/dL 70-110 TESTED AT [address] (test zggi=0992) [place] [address] RAD, CHEST, 1 VIEW, NON [id number] 23:16:00Reason for exam:-> reintubationShould this be performed at the bedside?->YesFINAL REPORT Chest one view. Clinical history: reintubation Comparison: Chest radiograph 08/25/2018, 6:15 AM Technique: A single frontal view of the chest was obtained. Findings:Endotracheal and feeding tubes are in satisfactory positions.The cardiomediastinal contours are stable. There is mild bibasilar linear atelectasis; superimposed left lower lobe pneumonia cannot be excluded. There is no pleural effusion or pneumothorax. There is no pulmonary edema. Signed: Lisa Shaikh Verified Date/Time: 08/25/2018 23:16: 53 Reading Location: [facility] C013Y CT Body Reading Room PREGNANCY SCREEN, [id number] 13:29:00 Test Item Value Reference Range Comments TEST URINE (BEAKER) (test hwlf=769) Negative POCT-GLUCOSE [id number] 12:11:00 Test Item Value Reference Range Comments POC-GLUCOSE METER (BEAKER) 152 mg/dL 70-110 TESTED AT [address] (test uoio=6467) [place] [address] POCT-GLUCOSE [id number] 09:16:00 Test Item Value Reference Range Comments POC-GLUCOSE METER (BEAKER) 174 mg/dL 70-110 TESTED AT [address] (test lmga=3905) [place] [id number] BLOOD GAS, [id number] 09:14:00 Test Item Value Reference Range Comments PH ARTERIAL (BEAKER) (test amxd=807) 7.41 7.35-7.45 PCO2 ARTERIAL (BEAKER) (test isjx=936) 38 mmHg 35-45 PO2 ARTERIAL (BEAKER) (test zvnr=050) 144 mmHg 80-90 O2 SATURATION ARTERIAL (BEAKER) (test tnxg=642) 98.9 % 96.0-97.0 HCO3 ARTERIAL (BEAKER) (test lmfn=598) 24 mmol/L 21-29 BASE EXCESS ARTERIAL (BEAKER) (test mool=465) -0.8 mmol/L -2.0-3.0 PATIENT TEMPERATURE (BEAKER) (test jaaq=8456) 36.2 C FIO2 (BEAKER) (test bidi=3815) 40.0 % RAD, ABDOMEN/KUB, 1 VIEW [id number] 06:43:00Reason for exam:->ng tube placementShould this be performed at the bedside?->YesFINAL REPORT Abdomen one view Comparison: None. Reason [...] osseous structures are unremarkable. Signed: Lisa Shaikh Verified Date/Time: 08/25/2018 06:43:19 [id number] RAD, CHEST, 1 VIEW, NON [id number] 06:42:00Reason for exam:->post intubationShould this be performed at the bedside?->YesFINAL REPORT Chest one view. Clinical history: post intubation Comparison: None. Technique: A single frontal view of the chest was obtained. Findings: Endotracheal and feeding tubes are satisfactory positions.The heart is normal in size. There are small linearly oriented opacities in the left lower lobe which may represent atelectasis however pneumonia cannot be excluded. There is no pleural effusion or pneumothorax. The bony thorax is unremarkable. Signed: Lisa Shaikh Verified Date/Time: 08/25/2018 06:42:12 Reading Location: [facility] C013Y CT Body Reading Room HIV-1 ANTIGEN WITH HIV-1/2 [id number] 03:32:00 Test Item Value Reference Range Comments HIV-1 ANTIGEN WITH HIV 1\T\2 ANTIBODY (2) Nonreactive Nonreactive (BEAKER) (test oxlk=6532) BLOOD GAS, [id number] 03:24:00 Test Item Value Reference Range Comments PH ARTERIAL (BEAKER) (test dajo=028) 7.40 7.35-7.45 PCO2 ARTERIAL (BEAKER) (test wazs=532) 31 mm Hg 35-45 PO2 ARTERIAL (BEAKER) (test eswy=003) 73 mmHg 80-90 O2 SATURATION ARTERIAL (BEAKER) (test oakp=080) 97.4 % 96.0-97.0 HCO3 ARTERIAL (BEAKER) (test guiw=163) 20 mmol/L 21-29 BASE EXCESS ARTERIAL (BEAKER) (test vuuy=993) -3.6 mmol/L -2.0-3.0 PATIENT TEMPERATURE (BEAKER) (test pxye=9373) 36.5 C FIO2 (BEAKER) (test cyun=5055) 21.0 % RAPID DRUG SCREEN, [id number] 03:19:00 Test Item Value Reference Range Comments BARBITURATE URINE (BEAKER) (test mevn=088) Negative Negative BENZODIAZEPINE SCREEN URINE (BEAKER) (test Negative Negative suak=413) COCAINE (METAB.) SCREEN (BEAKER) (test meph=5978) Negative Negative METHADONE SCREEN (BEAKER) (test qdvu=1597) Negative Negative OPIATE SCREEN URINE (BEAKER) (test qruw=267) Negative Negative CANNABINOID SCREEN URINE (BEAKER) (test csst=655) Negative Negative AMPH/METHAMPH SCREEN (BEAKER) (test klji=4753) Negative Negative PHENCYCLIDINE SCREEN URINE (BEAKER) (test ndll=922) Negative Negative OXYCODONE SCREEN URINE (BEAKER) (test sqap=5577) Negative Negative DRUG CUTOFF CONC.Cocaine 300 ng/mL Cannabinoid 50 ng/mL Benzodiazepine 200 ng/mLBarbiturate 200 ng/ mLPhencyclidine 25 ng/mLOpiate 300 ng/mLMethadone 300 ng/mLAmphetamine/ 1000 ng/mL MethamphetamineOxycodone 300 ng/mLThis assay provides an unconfirmed qualitative test result for the clinical management of patients in emergency situations. Chain of custody not maintained. Some kmqh-ovx-fdazrvy medications, as well as adulterants, may cause inaccurate results. Clinical correlation should be applied. A more comprehensive drug screen or confirmation of a detected drug may be performed upon request.PROTHROMBIN [id number] 03:17:00 Test Item Value Reference Range Comments PROTIME (BEAKER) (test zmtq=517) 14.6 seconds 11.7-14.7 INR (BEAKER) (test ndvw=647) 1.1 <=5.9 RECOMMENDED COUMADIN/WARFARIN INR THERAPY RANGESSTANDARD DOSE: 2.0 - 3.0 Includes: PROPHYLAXIS forvenous thrombosis, systemic embolization; TREATMENT for venous thrombosis and/or pulmonary embolus.HIGH RISK: Target INR is 2.5-3.5 for patients with mechanical heart valves.[id number] 03:17:00 Test Item Value Reference Range Comments PROTIME (BEAKER) (test dfxe=197) 14.6 seconds 11.7-14.7 INR (BEAKER) (test agwj=198) 1.1 <=5.9 PARTIAL THROMBOPLASTIN TIME (BEAKER) (test 28.4 seconds 22.5-36.0 oahr=185) RECOMMENDED COUMADIN/WARFARIN INR THERAPY RANGESSTANDARD DOSE: 2.0 - 3.0 Includes: PROPHYLAXIS forvenous thrombosis, systemic embolization; TREATMENT for venous thrombosis and/or pulmonary embolus.HIGH RISK: Target INR is 2.5-3.5 for patients with mechanical heart valves.ACETAMINOPHEN [id number] 03:13:00 Test Item Value Reference Range Comments ACETAMINOPHEN LEVEL (BEAKER) (test ibjc=069) < ug/mL 10.0-30.0 Therapeutic Range: 10.0-30.0 g/mLToxic Levels: >200.0 g/mLCBC W/PLT COUNT & AUTO [id number] 03:13:00 Test Item Value Reference Range Comments WHITE BLOOD CELL COUNT (BEAKER) (test laiz=456) 6.7 K/ L 3.5-10.5 RED BLOOD CELL COUNT (BEAKER) (test vhni=598) 3.64 M/ L 3.93-5.22 HEMOGLOBIN (BEAKER) (test vbry=033) 11.3 GM/DL 11.2-15.7 HEMATOCRIT (BEAKER) (test tiit=788) 33.8 % 34.1-44.9 MEAN CORPUSCULAR VOLUME (BEAKER) (test hqys=545) 92.9 fL 79.4-94.8 MEAN CORPUSCULAR HEMOGLOBIN (BEAKER) (test 31.0 pg 25.6-32.2 doqb=665) MEAN CORPUSCULAR HEMOGLOBIN CONC (BEAKER) (test 33.4 GM/DL 32.2-35.5 qgxr=438) RED CELL DISTRIBUTION WIDTH (BEAKER) (test 12.4 % 11.7-14.4 kbmn=133) PLATELET COUNT (BEAKER) (test xwij=032) 182 K/CU MM 150-450 MEAN PLATELET VOLUME (BEAKER) (test mzvl=745) 8.9 fL 9.4-12.3 NUCLEATED RED BLOOD CELLS (BEAKER) (test 0 /100 WBC 0-0 jduq=099) NEUTROPHILS RELATIVE PERCENT (BEAKER) (test 81 % kpyx=538) LYMPHOCYTES RELATIVE PERCENT (BEAKER) (test 13 % rbwr=162) MONOCYTES RELATIVE PERCENT (BEAKER) (test 5 % oufz=035) EOSINOPHILS RELATIVE PERCENT (BEAKER) (test 1 % htkw=402) BASOPHILS RELATIVE PERCENT (BEAKER) (test 0 % datx=406) NEUTROPHILS ABSOLUTE COUNT (BEAKER) (test 5.40 K/ L 1.56-6.13 algs=154) LYMPHOCYTES ABSOLUTE COUNT (BEAKER) (test 0.83 K/ L 1.18-3.74 bios=064) MONOCYTES ABSOLUTE COUNT (BEAKER) (test 0.36 K/ L 0.24-0.36 qolj=631) EOSINOPHILS ABSOLUTE COUNT (BEAKER) (test 0.03 K/ L 0.04-0.36 xkvn=587) BASOPHILS ABSOLUTE COUNT (BEAKER) (test 0.02 K/ L 0.01-0.08 kqeq=111) IMMATURE GRANULOCYTES-RELATIVE PERCENT (BEAKER) 0 % 0-1 (test agys=5099) SALICYLATE [id number] 03:12:00 Test Item Value Reference Range Comments SALICYLATE LEVEL (BEAKER) (test cjsc=815) < mg/dL 15.0-30.0 Therapeutic Range: 15.0-30.0 mg/dLToxic: >30.0 mg/dL Lethal: >70.0 mg/dLTROPONIN [id number] 03:08:00 Test Item Value Reference Range Comments TROPONIN I (BEAKER) (test vqlc=854) < ng/mL 0.00-0.03 Troponin I (TnI) levels must be interpreted in the context of the presenting symptoms and the clinical findings. Elevated TnI levels indicate myocardial damage, but are not specific for ischemic heart disease. Elevated TnI levels are seen in patients with other cardiac conditions (including myocarditis and congestive heart failure), and slight TnI elevations occur in patients with other conditions, including sepsis, renal failure, acidosis, acute neurological disease, and persistent tachyarrhythmia.[id number] 03:02:00 Test Item Value Reference Range Comments PHOSPHORUS (BEAKER) (test erps=382) 2.9 mg/dL 2.3-4.7 [id number] 03:02:00 Test Item Value Reference Range Comments MAGNESIUM (BEAKER) (test dfql=544) 1.9 mg/dL 1.6-2.6 BASIC METABOLIC [id number] 03:02:00 Test Item Value Reference Range Comments SODIUM (BEAKER) (test 140 meq/L 136-145 wpsr=638) POTASSIUM (BEAKER) (test 4.2 meq/L 3.5-5.1 iojf=922) CHLORIDE (BEAKER) (test 111 meq/L 98-107 yvdb=962) CO2 (BEAKER) (test 23 meq/L 22-29 nbjp=922) BLOOD UREA NITROGEN 9 mg/dL 7-21 (BEAKER) (test mvja=138) CREATININE (BEAKER) (test 0.77 mg/dL 0.57-1.25 mwti=148) GLUCOSE RANDOM (BEAKER) 125 mg/dL 70-105 (test aszo=071) CALCIUM (BEAKER) (test 8.1 mg/dL 8.4-10.2 oawh=393) EGFR (BEAKER) (test 86 mL/min/1.73 sq m ESTIMATED GFR IS NOT oxvt=2075) ACCURATE CREATININE CLEARANCE IN PREDICTING GLOMERULAR FILTRATION RATE. ESTIMATED GFR IS NOT APPLICABLE FOR DIALYSIS PATIENTS. HEPATIC FUNCTION [id number] 03:02:00 Test Item Value Reference Range Comments TOTAL PROTEIN (BEAKER) (test jfoi=413) 5.9 gm/dL 6.0-8.3 ALBUMIN (BEAKER) (test cocp=5704) 3.6 g/dL 3.5-5.0 BILIRUBIN TOTAL (BEAKER) (test klth=894) 0.6 mg/dL 0.2-1.2 BILIRUBIN DIRECT (BEAKER) (test pvkd=460) 0.2 mg/dL 0.1-0.5 ALKALINE PHOSPHATASE (BEAKER) (test asri=708) 68 U/L 40-150 AST (SGOT) (BEAKER) (test eeeu=609) 14 U/L 5-34 ALT (SGPT) (BEAKER) (test cpsw=805) 11 U/L 6-55 CREATINE KINASE (CK)[id number] 03:02:00 Test Item Value Reference Range Comments CREATINE KINASE TOTAL (BEAKER) (test qbxp=924) 49 U/L 29-200 [id number] 03:02:00 Test Item Value Reference Range Comments LIPASE (BEAKER) (test swsp=691) 26 U/L 8-78 [id number] 02:59:00 Test Item Value Reference Range Comments ETHANOL (BEAKER) (test enzg=585) < mg/dL <=10 LACTIC ACID, VENOUS, WHOLE [id number] 02:56:00 Test Item Value Reference Range Comments LACTATE BLOOD VENOUS (2) (BEAKER) (test 1.8 mmol/L 0.5-2.2 uexs=9560) [id number] 02:53:00 Test Item Value Reference Range Comments AMMONIA (BEAKER) (test aqrm=973) 16 mol/L 18-72 URINALYSIS W/ REFLEX URINE [id number] 02:47:00 Test Item Value Reference Range Comments COLOR (BEAKER) (test mkgh=968) Light Yellow CLARITY (BEAKER) (test aouo=995) Clear SPECIFIC GRAVITY UA (BEAKER) (test eidh=863) 1.010 1.001-1.035 PH UA (BEAKER) (test duvo=156) 6.0 5.0-8.0 PROTEIN UA (BEAKER) (test txki=195) 20 mg/dL Negative GLUCOSE UA (BEAKER) (test xcoe=451) Negative Negative KETONES UA (BEAKER) (test pkyq=053) Negative Negative BILIRUBIN UA (BEAKER) (test fzwz=995) Negative Negative BLOOD UA (BEAKER) (test xumq=786) Small Negative NITRITE UA (BEAKER) (test vnqt=080) Negative Negative LEUKOCYTE ESTERASE UA (BEAKER) (test cvrx=859) Negative Negative UROBILINOGEN UA (BEAKER) (test taot=140) 0.2 mg/dL 0.2-1.0 RBC UA (BEAKER) (test aoqf=638) 1 /HPF WBC UA (BEAKER) (test hibt=551) 1 /HPF BACTERIA (BEAKER) (test pfnk=037) Rare MUCUS (BEAKER) (test nuhd=3650) Occasional HYALINE CASTS (BEAKER) (test xnzi=983) 1 /LPF GRANULAR CASTS (BEAKER) (test spqp=037) 1 /LPF SOURCE(BEAKER) (test wsyx=3713) POCT-GLUCOSE [id number] 02:11:00 Test Item Value Reference Range Comments POC-GLUCOSE METER (BEAKER) 151 mg/dL 70-110 TESTED AT [facility] [address] (test oepq=2381) [facility] [id number]
--- NOTE | 2019-01-01 11:23 | RAD REPORT ---
EXAM DESCRIPTION: RAD - Chest Single View - 01/01/2019 11:16 am CLINICAL HISTORY: SOB Chest pain. COMPARISON: Chest Single View dated 08/24/2018; Chest Single View dated 05/13/2018; CHEST PA AND LAT 2 VIEW dated 07/06/2015 FINDINGS: Portable technique limits examination quality. The lungs are grossly clear. The heart is normal in size. No displaced fractures. IMPRESSION: No acute intrathoracic process suspected.
[2019-01-01 11:39] LABS: Absolute Neutrophil 3.6 K/uL (1.8-8.0); Basophils % 0.9 % (0-1.3); Eosinophils % 0.6 % (0-4.4); Lymphocytes % 16.9 % (15.3-44.8); MPV 7.3 fL (7.6-11.3); Monocytes % 6.2 % (3.3-12.3); RBC Red Blood Cell Count 4.63 M/uL (3.86-4.86)
[2019-01-01 11:40] LABS: Absolute Lymphocytes (CBC) 0.8 K/uL (0.7-4.9); Absolute Monocytes 0.3 K/uL (0.1-1.3)
[2019-01-01 12:02] LABS: ALT/SGPT 23 U/L (12-78); AST/SGOT 15 U/L (15-37); Albumin 4.1 g/dL (3.4-5.0); Alkaline Phosphatase 73 U/L (45-117); BUN Blood Urea Nitrogen 11 mg/dL (7-18); Bicarbonate 26 mmol/L (21-32); Bilirubin Direct 0.1 mg/dL (0-0.2); Bilirubin Total 0.6 mg/dL (0.2-1.0); Glucose Level 84 mg/dL (74-106); Magnesium 2.2 mg/dL (1.8-2.4); NT PRO-BNP 42 pg/mL (<125); Potassium 3.8 mmol/L (3.5-5.1); Protein, Total 7.3 g/dL (6.4-8.2); Sodium Level 142 mmol/L (136-145); Troponin (Emerg Dept Use Only) < 0.02 ng/mL (0.0-0.045)
--- NOTE | 2019-01-01 12:19 | EKG ---
Test Date: 2019-01-01 Test Time: 10:51:54 On Line Csr: CARISSA MEASUREMENT RESULTS: Intervals: Rate: 63 AR: 152 QRSD: 76 QT: 384 QTc: 392 [place]: P: 47 AR: 152 QRS: 5 T: 32 INTERPRETIVE STATEMENTS: Normal sinus rhythm Low voltage QRS Borderline ECG Compared to ECG 08/24/2018 22:29:04 Sinus tachycardia no longer present Electronically Signed On 01-01-19 12:17:59 CDT by Jean Bella
[2019-01-01 12:29] LABS: Urine Blood NEGATIVE (NEG); Urine Glucose NEGATIVE (NEG); Urine Protein NEGATIVE (NEG); Urine Specific Gravity 1.015 (1.005-1.030)
--- NOTE | 2019-01-01 13:08 | RAD REPORT ---
EXAM DESCRIPTION: CT - Chest For Pe Angio - 01/01/2019 12:50 pm CLINICAL HISTORY: Shortness of breath COMPARISON: None. TECHNIQUE: Dynamically enhanced axial 3 mm thick images of the chest were obtained during administra tion of <100> mL Isovue 370 IV contrast. Coronal and oblique reconstruction images were generated and reviewed. Exam utilizes a protocol for optimal evaluation of pulmonary arterial tree. Approximately 20 cc of us saline infiltrated prior to the administration of contrast. Cold compress w as applied. Maximum intensity projections 3D imaging was utilized All CT scans are performed using dose optimization technique as appropriate and may include automated exposure control or mA/KV adjustment according to patient size. FINDINGS: A pulmonary embolus is not seen. A thoracic aortic aneurysm is not noted. A pleural effusion is not seen. A pericardial effusion is not seen. A lung consolidation is not present. IMPRESSION: Negative for a pulmonary embolism.
--- NOTE | 2019-01-01 13:17 | EDPHYS ---
Physician Documentation [facility] Name: Angelica Salcedo Age: 33 yrs Sex: Female : 1985 Arrival Date: 01/01/2019 Time: 10:50 Bed 13 Private MD: ED Physician Marty Rivera HPI: 01/01 11:00 This 33 yrs old Female presents to ER via EMS with complaints of Shortness Of pm1 Breath, Anxiety. 11:00 The patient has shortness of breath while working. Onset: The symptoms/episode pm1 began/occurred just prior to arrival. Duration: The symptoms are continuous. The patient's shortness of breath is aggravated by nothing, is alleviated by nothing. Associated signs and symptoms: Pertinent positives: anxiety and hyperventilation, Pertinent negatives: chest pain, non-productive cough, productive cough, diaphoresis, dizziness, fever. Severity of symptoms: in the emergency department the symptoms have improved. The patient has experienced similar episodes in the past, a few times. The patient has not recently seen a physician. 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 - Social history:: Smoking status: Patient/guardian denies using tobacco. - Ebola Screening: : Patient negative for fever greater than or equal to 101.5 degrees Fahrenheit, and additional compatible Ebola Virus Disease symptoms Patient denies exposure to infectious person Patient denies travel to an Ebola-affected area in the 21 days before illness onset No symptoms or risks identified at this time. ROS: 11:20 Constitutional: Negative for fever, chills, and weight loss, Eyes: Negative for injury, pm1 pain, redness, and discharge, ENT: Negative for injury, pain, and discharge, Neck: Negative for injury, pain, and swelling, Cardiovascular: Negative for chest pain, palpitations, and edema. 11:20 Abdomen/GI: Negative for abdominal pain, nausea, vomiting, diarrhea, and constipation, Back: Negative for injury and pain. 11:20 : Negative for injury, bleeding, discharge, and swelling, MS/Extremity: Negative for injury and deformity, Skin: Negative for injury, rash, and discoloration, Neuro: Negative for headache, weakness, numbness, tingling, and seizure. 11:20 Respiratory: Positive for shortness of breath, Negative for cough, sputum production, wheezing. 11:20 Psych: Positive for anxiety, Negative for depression, auditory hallucinations, visual hallucinations, homicidal ideation, insomnia, suicide gesture, suicidal ideation. Exam: 11:20 Constitutional: This is a well developed, well nourished patient who is awake, alert, pm1 and in no acute distress. Head/Face: Normocephalic, atraumatic. Eyes: Pupils equal round and reactive to light, extra-ocular motions intact. Lids and lashes normal. Conjunctiva and sclera are non-icteric and not injected. Cornea within normal limits. Periorbital areas with no swelling, redness, or edema. ENT: Nares patent. No nasal discharge, no septal abnormalities noted. Tympanic membranes are normal and external auditory canals are clear. Oropharynx with no redness, swelling, or masses, exudates, or evidence of obstruction, uvula midline. Mucous membranes moist. Neck: Trachea midline, no thyromegaly or masses palpated, and no cervical lymphadenopathy. Supple, full range of motion without nuchal rigidity, or vertebral point tenderness. No Meningismus. Chest/axilla: Normal chest wall appearance and motion. Nontender with no deformity. No lesions are appreciated. 11:20 Cardiovascular: Regular rate and rhythm with a normal S1 and S2. No gallops, murmurs, or rubs. Normal PMI, no JVD. No pulse deficits. 11:20 Abdomen/GI: Soft, non-tender, with normal bowel sounds. No distension or tympany. No guarding or rebound. No evidence of tenderness throughout. Back: No spinal tenderness. No costovertebral tenderness. Full range of motion. Skin: Warm, dry with normal turgor. Normal color with no rashes, no lesions, and no evidence of cellulitis. MS/ Extremity: Pulses equal, no cyanosis. Neurovascular intact. Full, normal range of motion. 11:20 Respiratory: the patient does not display signs of respiratory distress, Respirations: normal, Breath sounds: are clear throughout. 11:20 Neuro: Orientation: is normal, Motor: is normal, moves all fours. Vital Signs: 11:15 BP 125 / 81; Pulse 77; Resp 18; Temp 98; Pulse Ox 100% ; Weight 68.04 kg; bp 13:44 BP 121 / 80; Pulse 77; Resp 15; Pulse Ox 99% on R/A; mh5 MDM: 10:54 Patient medically screened. pm1 13:13 Data reviewed: vital signs. Data interpreted: Pulse oximetry: on room air is 100 %. pm1 Interpretation: normal. Counseling: I had a detailed discussion with the patient and/or guardian regarding: the historical points, exam findings, and any diagnostic results supporting the discharge/admit diagnosis, lab results, radiology results, the need for outpatient follow up, to return to the emergency department if symptoms worsen or persist or if there are any questions or concerns that arise at home. 01/01 11:00 Order name: Basic Metabolic Panel; Complete Time: 12:12 pm01/01 11:00 Order name: CBC with Diff; Complete Time: 11:56 pm01/01 11:00 Order name: LFT's; Complete Time: 12:12 pm01/01 11:00 Order name: Magnesium; Complete Time: 12:12 pm01/01 11:00 Order name: NT PRO-BNP; Complete Time: 12:12 pm01/01 11:00 Order name: PT-INR; Complete Time: 11:56 pm01/01 11:00 Order name: Troponin (emerg Dept Use Only); Complete Time: 12:12 pm01/01 11:00 Order name: XRAY Chest (1 view); Complete Time: 11:56 pm01/01 11:00 Order name: EKG; Complete Time: 11:01 pm01/01 11:00 Order name: Cardiac monitoring; Complete Time: 11:18 pm01/01 11:00 Order name: EKG - Nurse/Tech; Complete Time: 11:18 pm01/01 11:00 Order name: CT Chest For PE Angio; Complete Time: 13:12 pm1 01/01 11:46 Order name: Urine Dipstick--Ancillary (enter results); Complete Time: 12:35 bd 01/01 11:46 Order name: Urine --Ancillary (enter results); Complete Time: 12:35 bd 01/01 11:00 Order name: IV Saline Lock; Complete Time: 11:28 pm1 01/01 11:00 Order name: Labs collected and sent; Complete Time: 11:18 pm1 01/01 11:00 Order name: O2 Per Protocol; Complete Time: 11:18 pm1 01/01 11:00 Order name: O2 Sat Monitoring; Complete Time: 11:18 pm1 Administered Medications: No medications were administered Disposition: 01/02 08:04 Co-signature as Attending Physician, Marty Rivera MD I agree with the assessment and alea plan of care. Disposition: 01/01/19 13:16 Discharged to Home. Impression: Acute stress reaction, Hyperventilation. - Condition is Stable. - Discharge Instructions: Hyperventilation, Stress and Stress Management. - Medication Reconciliation Form, Thank You Letter, Antibiotic Education, Prescription Opioid Use form. - Follow up: Emergency Department; When: As needed; Reason: Worsening of condition. Follow up: Private Physician; When: 2 - 3 days; Reason: Recheck today's complaints, Continuance of care, Re-evaluation by your physician. - Problem is new. - Symptoms have improved. Signatures: Dispatcher [employer] EDMarty Solis MD MD cha Marinas, Patrick, HEAVY EQUIPMENT DIESEL MECHANIC HEAVY EQUIPMENT DIESEL MECHANIC pm1 Shyam Shell RN RN bp Corrections: (The following items were deleted from the chart) 01/01 14:06 13:16 01/01/2019 13:16 Discharged to Home. Impression: Acute stress reaction; bp Hyperventilation. Condition is Stable. Forms are Medication Reconciliation Form, Thank You Letter, Antibiotic Education, Prescription Opioid Use. Follow up: Emergency Department; When: As needed; Reason: Worsening of condition. Follow up: Private Physician; When: 2 - 3 days; Reason: Recheck today's complaints, Continuance of care, Re-evaluation by your physician. Problem is new. Symptoms have improved. pm1
--- NOTE | 2019-01-01 13:17 | ER ---
Nurse's Notes [facility] Name: Angelica Salcedo Age: 33 yrs Sex: Female : 1985 Arrival Date: 01/01/2019 Time: 10:50 Bed 13 Private MD: Diagnosis: Acute stress reaction;Hyperventilation Presentation: 01/01 11:00 Presenting complaint: EMS states: SOB AND ANXIETY AT WORK. Transition of care: patient bp was not received from another setting of care. Onset of symptoms is unknown. Risk Assessment: Do you want to hurt yourself or someone else? Patient reports no desire to harm self or others. Initial Sepsis Screen: Does the patient meet any 2 criteria? No. Patient's initial sepsis screen is negative. Does the patient have a suspected source of infection? No. Patient's initial sepsis screen is negative. Care prior to arrival: None. 11:00 Method Of Arrival: EMS: [facility] bp 11:00 Acuity: DIEGO 4 bp Triage Assessment: 11:15 General: Appears in no apparent distress. comfortable, Behavior is cooperative, bp appropriate for age, anxious. Pain: Denies pain. Respiratory: Reports shortness of breath Airway is patent Respiratory effort is even, unlabored, Respiratory pattern is regular, symmetrical, Onset: The symptoms/episode began/occurred this morning, the patient has mild shortness of breath. 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 - Social history:: Smoking status: Patient/guardian denies using tobacco. - Ebola Screening: : Patient negative for fever greater than or equal to 101.5 degrees Fahrenheit, and additional compatible Ebola Virus Disease symptoms Patient denies exposure to infectious person Patient denies travel to an Ebola-affected area in the 21 days before illness onset No symptoms or risks identified at this time. Screenin:15 Abuse screen: Denies threats or abuse. Denies injuries from another. Nutritional bp screening: No deficits noted. Tuberculosis screening: No symptoms or risk factors identified. Fall Risk None identified. Assessment: 11:30 General: SEE TRIAGE NOTE. bp 12:41 Reassessment: ALL CURRENT ORDERS COMPLETE, RESULTS PENDING FOR DISPO. bp 14:05 Reassessment: PT D/C HOME AMBULATORY WITH FAMILY, DX WITH HYPERVENTILATION STRESS bp REACTION. Cardiovascular: Rhythm is sinus rhythm. Respiratory: Airway is patent Respiratory effort is even, unlabored, Respiratory pattern is regular, symmetrical, Breath sounds are clear bilaterally. Vital Signs: 11:15 BP 125 / 81; Pulse 77; Resp 18; Temp 98; Pulse Ox 100% ; Weight 68.04 kg; bp 13:44 BP 121 / 80; Pulse 77; Resp 15; Pulse Ox 99% on R/A; mh5 ED Course: 10:50 Patient arrived in ED. bp 10:51 Cameron Suh, ROMULO is PHCP. pm1 10:51 Marty Rivera MD is Attending Physician. pm1 11:13 Shyam Shell, KEVYN is Primary Nurse. bp 11:14 Triage completed. bp 11:15 Arm band placed on. bp 11:15 Patient has correct armband on for positive identification. Placed in gown. Bed in low bp position. Call light in reach. Side rails up X2. Adult w/ patient. 11:16 X-ray completed. Portable x-ray completed in exam room. Patient tolerated procedure jb2 well. 11:17 XRAY Chest (1 view) In Process Unspecified. EDMS 11:30 Inserted saline lock: 20 gauge in right antecubital area, using aseptic technique. bp Blood collected. 12:48 CT completed. pt iv inflitrated 20 cc of saline prior to contrasted started. cold ls3 compress applied and iv removed. Note: new iv started on left side . Patient moved to CT via wheelchair. 12:51 CT Chest For PE Angio In Process Unspecified. EDMS 13:42 IV discontinued. mh5 14:05 No provider procedures requiring assistance completed. bp 14:06 IV discontinued, intact, bleeding controlled, No redness/swelling at site. Pressure bp dressing applied. Administered Medications: No medications were administered Outcome: 13:16 Discharge ordered by . pm1 14:06 Discharged to home ambulatory, with family. bp 14:06 Condition: stable 14:06 Discharge instructions given to patient, Instructed on discharge instructions, follow up and referral plans. medication usage, Demonstrated understanding of instructions, follow-up care. 14:06 Patient left the ED. bp Signatures: Dispatcher [employer] EDMS Vazquez uBtcher Patrick, ROMULO DRIER AND EVAPORATOR OPERATOR aura1 Irma Mobley 5 Shyam Shell, RN RN Ramon Santiago3
== END 2019-01-01 14:06 | disposition home or self-care (01) ==
LOC: ER 10:47
DX: R06.4 Hyperventilation (principal); F41.9 Anxiety disorder, unspecified; F32.9 Major depressive disorder, single episode, unspecified; Z88.0 Allergy status to penicillin; Z88.1 Allergy status to other antibiotic agents; Z88.8 Allergy status to other drugs, medicaments and biological substances
CPT/HCPCS: 36415; 71045; 71275; 80048; 80076; 81003; 81025; 83735; 83880; 84484; 85025; 85610; 93005; 99285; Q9967

== ENCOUNTER 2019-02-24 11:49 | Inpatient (IN) | payer SELFPAY ==
--- OUTSIDE RECORDS SUMMARY | 2019-02-24 11:54 | XMS REPORT | Clinical Summary ---
:1985 Author Organization [facility] Address [address] [place] [address] Care Team Providers Name Role Phone Unavailable [...] Sb Rivera transfer Medicine MD Hui after 02/23/2018 Immunizations Name Dates Previously Given Next Due [...] Taken Blood Pressure 109/70 09/02/2018 11:00 AM ASSISTANT SURVEYOR Pulse 75 09/02/2018 11:00 AM ASSISTANT SURVEYOR Temperature 36.6 C (97.8 F) 09/02/2018 11:00 AM ASSISTANT SURVEYOR Respiratory Rate 18 09/02/2018 11:00 AM ASSISTANT SURVEYOR Oxygen Saturation 98% 09/02/2018 11:00 AM ASSISTANT SURVEYOR Inhaled Oxygen Concentration 21% 08/26/2018 8:15 AM ASSISTANT SURVEYOR Weight 70.2 kg (154 lb 12.2 oz) 08/27/2018 5:00 AM ASSISTANT SURVEYOR Height 162.6 cm (5' 4") 08/26/2018 4:00 AM ASSISTANT SURVEYOR Body Mass Index 26.57 08/27/2018 5:00 AM ASSISTANT SURVEYOR Plan of Treatment Not on file Procedures Procedure Name Priority Date/Time Associated Comments Diagnosis REPORT OF PROCEDURE - 09/04/2018 9:10 ENDOSCOPY SCAN AM ASSISTANT SURVEYOR RHYTHM STRIP - SCAN 09/04/2018 9:10 AM ASSISTANT SURVEYOR BASIC METABOLIC PANEL Routine 09/02/2018 6:41 Results for this (7) AM ASSISTANT SURVEYOR procedure are in the results section. MAGNESIUM Routine 08/30/2018 5:53 Results for this AM ASSISTANT SURVEYOR procedure are in the results section. BASIC METABOLIC PANEL Routine 08/30/2018 5:53 Results for this (7) AM ASSISTANT SURVEYOR procedure are in the results section. XR CHEST 1 VIEW Routine 08/28/2018 7:01 Results for this PORTABLE/BEDSIDE AM ASSISTANT SURVEYOR procedure are in the results section. CBC W/PLT COUNT & AUTO Routine 08/28/2018 6:30 Results for this DIFFERENTIAL AM ASSISTANT SURVEYOR procedure are in the results section. BASIC METABOLIC PANEL Routine 08/28/2018 6:30 Results for this (7) AM ASSISTANT SURVEYOR procedure are in the results section. CBC W/PLT COUNT & AUTO Routine 08/28/2018 6:30 Results for this DIFFERENTIAL AM ASSISTANT SURVEYOR procedure are in the results section. POCT-GLUCOSE METER Routine 08/27/2018 7:48 Results for this AM ASSISTANT SURVEYOR procedure are in the results section. CBC W/PLT COUNT & AUTO Routine 08/27/2018 4:51 Results for this DIFFERENTIAL AM ASSISTANT SURVEYOR procedure are in the results section. PHOSPHORUS Routine 08/27/2018 4:51 Results for this AM ASSISTANT SURVEYOR procedure are in the results section. MAGNESIUM Routine 08/27/2018 4:51 Results for this AM ASSISTANT SURVEYOR procedure are in the results section. BASIC METABOLIC PANEL Routine 08/27/2018 4:51 Results for this (7) AM ASSISTANT SURVEYOR procedure are in the results section. CBC W/PLT COUNT & AUTO Routine 08/27/2018 4:51 Results for this DIFFERENTIAL AM ASSISTANT SURVEYOR procedure are in the results section. POCT-GLUCOSE METER Routine 08/26/2018 10:14 Results for this PM ASSISTANT SURVEYOR procedure are in the results section. POCT-GLUCOSE METER Routine 08/26/2018 5:58 Results for this PM ASSISTANT SURVEYOR procedure are in the results section. MISCELLANEOUS LAB Routine 08/26/2018 1:52 ORDER PM ASSISTANT SURVEYOR POCT-GLUCOSE METER Routine 08/26/2018 12:07 Results for this PM ASSISTANT SURVEYOR procedure are in the results section. PROCALCITONIN STAT 08/26/2018 9:55 Results for this AM ASSISTANT SURVEYOR procedure are in the results section. POCT-GLUCOSE METER Routine 08/26/2018 8:44 Results for this AM ASSISTANT SURVEYOR procedure are in the results section. CBC W/PLT COUNT & AUTO Routine 08/26/2018 4:10 Results for this DIFFERENTIAL AM ASSISTANT SURVEYOR procedure are in the results section. PHOSPHORUS Routine 08/26/2018 4:10 Results for this AM ASSISTANT SURVEYOR procedure are in the results section. MAGNESIUM Routine 08/26/2018 4:10 Results for this AM ASSISTANT SURVEYOR procedure are in the results section. BASIC METABOLIC PANEL Routine 08/26/2018 4:10 Results for this (7) AM ASSISTANT SURVEYOR procedure are in the results section. CBC W/PLT COUNT & AUTO Routine 08/26/2018 4:10 Results for this DIFFERENTIAL AM ASSISTANT SURVEYOR procedure are in the results section. POCT-GLUCOSE METER Routine 08/25/2018 11:46 Results for this PM ASSISTANT SURVEYOR procedure are in the results section. XR CHEST 1 VIEW STAT 08/25/2018 10:54 Results for this PORTABLE/BEDSIDE PM ASSISTANT SURVEYOR procedure are in the results section. ECG 12-LEAD Routine 08/25/2018 8:03 Results for this PM ASSISTANT SURVEYOR procedure are in the results section. SCREEN, Routine 08/25/2018 12:51 Results for this URINE PM ASSISTANT SURVEYOR procedure are in the results section. POCT-GLUCOSE METER Routine 08/25/2018 11:33 Results for this AM ASSISTANT SURVEYOR procedure are in the results section. POCT-GLUCOSE METER Routine 08/25/2018 8:46 Results for this AM ASSISTANT SURVEYOR procedure are in the results section. BLOOD GAS, ARTERIAL STAT 08/25/2018 7:53 Results for this AM ASSISTANT SURVEYOR procedure are in the results section. SPUTUM CULTURE + GRAM Routine 08/25/2018 7:48 Results for this STAIN AM ASSISTANT SURVEYOR procedure are in the results section. XR ABDOMEN 1 VIEW STAT 08/25/2018 6:27 Results for this AM ASSISTANT SURVEYOR procedure are in the results section. XR CHEST 1 VIEW STAT 08/25/2018 6:27 Results for this PORTABLE/BEDSIDE AM ASSISTANT SURVEYOR procedure are in the results section. BLOOD GAS, ARTERIAL STAT 08/25/2018 3:13 Results for this AM ASSISTANT SURVEYOR procedure are in the results section. BLOOD CULTURE STAT 08/25/2018 2:36 Results for this AM ASSISTANT SURVEYOR procedure are in the results section. AMMONIA STAT 08/25/2018 2:35 Results for this AM ASSISTANT SURVEYOR procedure are in the results section. URINALYSIS W/ REFLEX Routine 08/25/2018 2:26 Results for this URINE CULTURE AM ASSISTANT SURVEYOR procedure are in the results section. HIV-1 ANTIGEN WITH Routine 08/25/2018 2:26 Results for this HIV-1/2 ANTIBODY AM ASSISTANT SURVEYOR procedure are in the results section. ETHANOL STAT 08/25/2018 2:25 Results for this AM ASSISTANT SURVEYOR procedure are in the results section. CBC W/PLT COUNT & AUTO STAT 08/25/2018 2:24 Results for this DIFFERENTIAL AM ASSISTANT SURVEYOR procedure are in the results section. RAPID DRUG SCREEN, STAT 08/25/2018 2:24 Results for this URINE AM ASSISTANT SURVEYOR procedure are in the results section. LACTIC ACID, VENOUS STAT 08/25/2018 2:24 Results for this AM ASSISTANT SURVEYOR procedure are in the results section. CREATINE KINASE (CK) STAT 08/25/2018 2:24 Results for this AM ASSISTANT SURVEYOR procedure are in the results section. PHOSPHORUS STAT 08/25/2018 2:24 Results for this AM ASSISTANT SURVEYOR procedure are in the results section. MAGNESIUM STAT 08/25/2018 2:24 Results for this AM ASSISTANT SURVEYOR procedure are in the results section. TROPONIN I STAT 08/25/2018 2:24 Results for this AM ASSISTANT SURVEYOR procedure are in the results section. LIPASE STAT 08/25/2018 2:24 Results for this AM ASSISTANT SURVEYOR procedure are in the results section. SALICYLATE LEVEL STAT 08/25/2018 2:24 Results for this AM ASSISTANT SURVEYOR procedure are in the results section. ACETAMINOPHEN LEVEL STAT 08/25/2018 2:24 Results for this AM ASSISTANT SURVEYOR procedure are in the results section. PT/APTT STAT 08/25/2018 2:24 Results for this AM ASSISTANT SURVEYOR procedure are in the results section. PROTHROMBIN TIME/INR STAT 08/25/2018 2:24 Results for this AM ASSISTANT SURVEYOR procedure are in the results section. HEPATIC FUNCTION PANEL STAT 08/25/2018 2:24 Results for this AM ASSISTANT SURVEYOR procedure are in the results section. BASIC METABOLIC PANEL STAT 08/25/2018 2:24 Results for this (7) AM ASSISTANT SURVEYOR procedure are in the results section. CBC W/PLT COUNT & AUTO STAT 08/25/2018 2:24 Results for this DIFFERENTIAL AM ASSISTANT SURVEYOR procedure are in the results section. BLOOD CULTURE STAT 08/25/2018 2:23 Results for this AM ASSISTANT SURVEYOR procedure are in the results section. ECG 12-LEAD Routine 08/25/2018 2:16 AM ASSISTANT SURVEYOR Procedure Note - Interface, External Ris In - 08/25/2018 8:20 PM ASSISTANT SURVEYOR Ventricular Rate 103 BPM Atrial Rate 103 BPM P-R Interval 184 ms QRS Duration 82 ms Q-T Interval 356 ms QTC Calculation(Bazett) 466 ms P [place] 76 degrees R [place] 12 degrees T [place] 45 degrees Sinus tachycardia Low voltage QRS Borderline ECG No previous ECGs available ECG 12-LEAD STAT 08/25/2018 2:16 AM ASSISTANT SURVEYOR POCT-GLUCOSE METER Routine 08/25/2018 2:10 AM ASSISTANT SURVEYOR after 02/23/2018 Results EKG-SCANNED (09/04/2018 9:10 AM ASSISTANT SURVEYOR) Narrative Performed At RHYTHM STRIP - SCAN (09/04/2018 9:10 AM ASSISTANT SURVEYOR) Narrative Performed At Basic Metabolic Panel (09/02/2018 6:41 AM ASSISTANT SURVEYOR)Only the most recent of6 resultswithin the time period is included. Sodium 139 136 - 145 meq/L [facility] Potassium 3.9 3.5 - 5.1 meq/L [facility] Chloride 103 98 - 107 meq/L [facility] CO2 28 22 - 29 meq/L [facility] BUN 12 7 - 21 mg/dL [facility] Creatinine 0.72 0.57 - 1.25 mg/dL [facility] Glucose 90 70 - 105 mg/dL [facility] Calcium 9.1 8.4 - 10.2 mg/dL [facility] EGFR 93Comment: ESTIMATED GFR IS mL/min/1.73 sq m [facility] NOT ACCURATE CREATININE [facility] CLEARANCE IN PREDICTING GLOMERULAR FILTRATION RATE. ESTIMATED GFR IS NOT APPLICABLE FOR DIALYSIS PATIENTS. Specimen Blood Performing Organization Address City/State/Zipcode Phone Number [facility] [address] [place] [address] CENTER Magnesium (08/30/2018 5:53 AM ASSISTANT SURVEYOR)Only the most recent of4 resultswithin the time period is included. Magnesium 2.4 1.6 - 2.6 mg/dL [facility] Specimen Blood Performing Organization Address City/State/Zipcode Phone Number [facility] [address] [place] [address] CENTER XR chest 1 view portable / bedside (08/28/2018 7:01 AM ASSISTANT SURVEYOR)Only the most recent of3 resultswithin the time period is included. Specimen Narrative Performed At FINAL REPORT [facility] RAD, CHEST, 1 VIEW, NON DEPT INDICATION: cough COMPARISON: August 25, 2018 FINDINGS: Portable frontal view of the chest. IMPRESSION: Support Lines: None. Lungs and pleura: Clear lungs. Costophrenic sulci are sharp. No pneumothorax. Heart and mediastinum: Unremarkable. Additional findings: None. Signed: JR Miner Robert MD Report Verified Date/Time:08/28/2018 08:10:09 Reading Location: [address] Neuro Reading Room Procedure Note Interface, External Ris In - 08/28/2018 8:13 AM ASSISTANT SURVEYOR FINAL REPORT RAD, CHEST, 1 VIEW, NON DEPT INDICATION: cough COMPARISON: August 25, 2018 FINDINGS: Portable frontal view of the chest. IMPRESSION: Support Lines: None. Lungs and pleura: Clear lungs. Costophrenic sulci are sharp. No pneumothorax. Heart and mediastinum: Unremarkable. Additional findings: None. Signed: JR Miner Robert MD Report Verified Date/Time: 08/28/2018 08:10:09 Reading Location: [address] Neuro Reading Room Performing Organization Address City/State/Zipcode Phone Number [facility] CBC with platelet count + automated diff (08/28/2018 6:30 AM ASSISTANT SURVEYOR)Only the most recent of4 resultswithin the time period is included. WBC 5.4 3.5 - 10.5 K/L [facility] RBC 3.94 3.93 - 5.22 M/L [facility] Hemoglobin 12.2 11.2 - 15.7 GM/DL [facility] Hematocrit 36.7 34.1 - 44.9 % [facility] MCV 93.1 79.4 - 94.8 fL [facility] MCH 31.0 25.6 - 32.2 pg [facility] MCHC 33.2 32.2 - 35.5 GM/DL [facility] RDW 12.3 11.7 - 14.4 % [facility] Platelets 229 150 - 450 K/CU MM [facility] MPV 9.2 (L) 9.4 - 12.3 fL [facility] nRBC 0 0 - 0 /100 WBC [facility] % Neutros 63 % [facility] % Lymphs 25 % [facility] % Monos 8 % [facility] % Eos 3 % [facility] % Baso 0 % [facility] # Neutros 3.42 1.56 - 6.13 K/L [facility] # Lymphs 1.35 1.18 - 3.74 K/L [facility] # Monos 0.43 (H) 0.24 - 0.36 K/L [facility] # Eos 0.17 0.04 - 0.36 K/L [facility] # Baso 0.02 0.01 - 0.08 K/L [facility] Immature Granulocytes-Relative 1 0 - 1 % [facility] Specimen Blood Performing Organization Address City/State/Zipcode Phone Number [facility] [address] [place] [address] [phone] CENTER POC-Glucose meter (08/27/2018 7:48 AM ASSISTANT SURVEYOR)Only the most recent of9 resultswithin the time period is included. POC-Glucose Meter 115 (H)Comment: TESTED AT 70 - 110 mg/dL [facility] [address] [place] [address] Specimen Blood Performing Organization Address [facility] Phone Number [address] [phone] [place] Phosphorus (08/27/2018 4:51 AM ASSISTANT SURVEYOR)Only the most recent of3 resultswithin the time period is included. Phosphorus 2.8 2.3 - 4.7 mg/dL [facility] Specimen Blood Performing Organization Address [facility] Phone Number [address] [address] [phone] [place] Resp panel (08/26/2018 1:52 PM ASSISTANT SURVEYOR) Scan Result [facility] Specimen Sputum Narrative Performed At Performing Organization Address City/[facility] Phone Number [facility] [address] [place], [place] Procalcitonin (08/26/2018 9:55 AM ASSISTANT SURVEYOR) Procalcitonin 0.16 (H) <0.05 ng/mL [facility] Specimen Blood Narrative Performed At SEPSIS RISK (ng/mL) [facility] Low:0.05-0.50 Intermediate: 0.51-2.00 High: >=2.01 Performing Organization Address [facility] Phone Number [address] [phone] [place] ECG 12 lead (08/25/2018 8:03 PM ASSISTANT SURVEYOR)Only the most recent of2 resultswithin the time period is included. Specimen Narrative Performed At Ventricular Rate 88 BPM GE MUSE Atrial Rate 88 BPM P-R Interval 158 ms QRS Duration 86 ms Q-T Interval 358 ms QTC Calculation(Bazett) 433 ms P [place] 58 degrees R [place] 21 degrees T [place] 41 degrees Normal sinus rhythm Normal ECG No previous ECGs available Confirmed by Wale MALAGON MICHAEL ([id number]) on 08/26/2018 7:09:34 AM Procedure Note Interface, External Ris In - 08/26/2018 7:09 AM ASSISTANT SURVEYOR Ventricular Rate 88 BPM Atrial Rate 88 BPM P-R Interval 158 ms QRS Duration 86 ms Q-T Interval 358 ms QTC Calculation(Bazett) 433 ms P [place] 58 degrees R [place] 21 degrees T [place] 41 degrees Normal sinus rhythm Normal ECG No previous ECGs available Confirmed by Wale MALAGON MICHAEL ([id number]) on 08/26/2018 7:09:34 AM Performing Organization Address City/[facility] Phone Number MessageParty Screen, urine (08/25/2018 12:51 PM ASSISTANT SURVEYOR) Preg Test, Ur Negative [facility] Specimen Urine Performing Organization Address [facility] Phone Number [facility] [address] [place] [address] [phone] CENTER Blood gas, arterial (08/25/2018 7:53 AM ASSISTANT SURVEYOR)Only the most recent of2 resultswithin the time period is included. pH, Arterial 7.41 7.35 - 7.45 [facility] pCO2, Arterial 38 35 - 45 mmHg [facility] pO2, Arterial 144 (H) 80 - 90 mmHg [facility] O2 Sat, Arterial 98.9 (H) 96.0 - 97.0 % [facility] HCO3, Arterial 24 21 - 29 mmol/L [facility] Base Excess, Arterial -0.8 -2.0 - 3.0 mmol/L [facility] Patient Temperature 36.2 C [facility] FIO2 40.0 % [facility] Specimen Blood, Arterial Performing Organization Address [facility] Phone Number [facility] [address] [place] [address] CENTER Sputum Culture + Gram Stain (08/25/2018 7:48 AM ASSISTANT SURVEYOR) Result STAPHYLOCOCCUS AUREUS (A) [facility] Gram Stain Result 4+ WBCs [facility] Gram Stain Result No epithelial cells [facility] Gram Stain Result No organisms seen [facility] Specimen Sputum Narrative Performed At 2+ Normal respiratory leon present [facility] Organism Antibiotic Method Susceptibility Staphylococcus aureus Clindamycin >=4: Resistant Staphylococcus aureus Erythromycin >=8: Resistant Staphylococcus aureus Linezolid 2: Susceptible Staphylococcus aureus Oxacillin <=0.25: Susceptible Staphylococcus aureus Rifampin <=0.5: Susceptible Staphylococcus aureus Tetracycline <=1: Susceptible Staphylococcus aureus Trimethoprim + Sulfamethoxazole <=10: Susceptible Staphylococcus aureus Vancomycin <=0.5: Susceptible Performing Organization Address City/State/Zipcode Phone Number [facility] [address] [place] [address] [phone] CENTER XR abdomen / KUB 1 view (08/25/2018 6:27 AM ASSISTANT SURVEYOR) Specimen Narrative Performed At FINAL REPORT [facility] Abdomen one view Comparison: None. Reason for [...] unremarkable. Signed: Lisa Shaikh MD Report Verified Date/Time:08/25/2018 06:43:19 Reading Location: [facility] B1 C013Y CT Body Reading Room Procedure Note Interface, External Ris In - 08/25/2018 6:45 AM ASSISTANT SURVEYOR FINAL REPORT Abdomen one view Comparison: None. [...] Report Verified Date/Time: 08/25/2018 06:43:19 Reading Location: [facility] B1 C013Y CT Body Reading Room Performing Organization Address City/State/Zipcode Phone Number [facility] Blood culture (08/25/2018 2:36 AM ASSISTANT SURVEYOR)Only the most recent of2 resultswithin the time period is included. Result No growth in 5 days [facility] Specimen Blood Performing Organization Address [facility]/[place] [address] CENTER Ammonia (08/25/2018 2:35 AM ASSISTANT SURVEYOR) Ammonia 16 (L) 18 - 72 mol/L [facility] Specimen Blood Performing Organization Address [facility] Phone Number [address] [address] [place] Urinalysis w/Microscopic + Reflex to Culture (08/25/2018 2:26 AM ASSISTANT SURVEYOR) Color, UA Light Yellow [facility] Clarity, UA Clear [facility] Specific [place], UA 1.010 1.001 - 1.035 [facility] pH, UA 6.0 5.0 - 8.0 [facility] Protein, UA 20 mg/dL (A) Negative [facility] Glucose, UA Negative Negative [facility] Ketones, UA Negative Negative [facility] Bilirubin, UA Negative Negative [facility] Blood, UA Small (A) Negative [facility] Nitrite, UA Negative Negative [facility] Leukocytes, UA Negative Negative [facility] Urobilinogen, UA 0.2 0.2 - 1.0 mg/dL [facility] RBC, UA 1 /HPF [facility] WBC, UA 1 /HPF [facility] Bacteria, UA Rare [facility] Mucus Occasional [facility] Hyaline Casts, UA 1 /LPF [facility] Granular Casts, UA 1 /LPF [facility] Specimen Source [facility] Specimen Urine Performing Organization Address City/[facility] Phone Number [address] [address] [place] HIV-1 Antigen with HIV-1/2 Antibody (08/25/2018 2:26 AM ASSISTANT SURVEYOR) HIV-1 Antigen with HIV 1&2 NON-REACTIVE Nonreactive [facility] Specimen Blood Performing Organization Address City/[facility] Phone Number [address] [address] [phone] [place] Ethanol (08/25/2018 2:25 AM ASSISTANT SURVEYOR) Ethanol Lvl <10 <=10 mg/dL [facility] Specimen Blood Performing Organization Address [facility] Phone Number [address] [address] [phone] CENTER PT/aPTT (08/25/2018 2:24 AM ASSISTANT SURVEYOR) Protime 14.6 11.7 - 14.7 seconds [facility] INR 1.1 <=5.9 [facility] PTT 28.4 22.5 - 36.0 seconds [facility] Specimen Blood Narrative Performed At RECOMMENDED COUMADIN/WARFARIN INR THERAPY [facility] RANGES STANDARD DOSE: 2.0 - 3.0 Includes: PROPHYLAXIS for venous thrombosis, systemic embolization; TREATMENT for venous thrombosis and/or pulmonary embolus. HIGH RISK: Target INR is 2.5-3.5 for patients with mechanical heart valves. Performing Organization Address [facility] Phone Number [address] [address] CENTER Troponin I (08/25/2018 2:24 AM ASSISTANT SURVEYOR) Troponin I <0.01 0.00 - 0.03 ng/mL [facility] Specimen Blood Narrative Performed At Troponin I (TnI) levels must be interpreted [facility] in the context of the presenting symptoms [...] disease, and persistent tachyarrhythmia. Performing Organization Address [facility] Phone Number [address] [address] [place] Lactic acid, venous, whole blood (08/25/2018 2:24 AM ASSISTANT SURVEYOR) Lactate, Venous 1.8 0.5 - 2.2 mmol/L [facility] Specimen Blood Performing Organization Address [facility] Phone Number [address] [address] [place] Rapid drug screen, urine (08/25/2018 2:24 AM ASSISTANT SURVEYOR) Barbiturate Screen Negative Negative [facility] Benzodiazepine Screen Negative Negative [facility] Cocaine (Metab.) Screen Negative Negative [facility] Methadone Screen Negative Negative [facility] Opiate Screen Negative Negative [facility] Cannabinoid Screen Negative Negative [facility] Amph/Methamph Screen Negative Negative [facility] Phencyclidine Screen Negative Negative [facility] Oxycodone Screen Negative Negative [facility] Specimen Urine Narrative Performed At DRUGCUTOFF [facility] CONC. Cocaine 300 ng/mL Duoylbrheue42 ng/mL [id number] ng/mL Barbiturate 200 ng/mL Hhrqstavsfnnf31 ng/mL Gnqzem966 ng/mL Methadone 300 ng/mL Amphetamine/ 1000 ng/mL Methamphetamine Oxycodone 300 ng/mL This assay provides an unconfirmed qualitative test result for the clinical management of patients in emergency situations. Chain of custody not maintained. Some [id number] medications, as well as adulterants, may cause inaccurate results. Clinical correlation should be applied. A more comprehensive drug screen or confirmation of a detected drug may be performed upon request. Performing Organization Address [facility] Phone Number [address] [address] CENTER Prothrombin time/INR (08/25/2018 2:24 AM ASSISTANT SURVEYOR) Protime 14.6 11.7 - 14.7 seconds [facility] INR 1.1 <=5.9 [facility] Specimen Blood Narrative Performed At RECOMMENDED COUMADIN/WARFARIN INR THERAPY [facility] RANGES STANDARD DOSE: 2.0 - 3.0 Includes: PROPHYLAXIS for venous thrombosis, systemic embolization; TREATMENT for venous thrombosis and/or pulmonary embolus. HIGH RISK: Target INR is 2.5-3.5 for patients with mechanical heart valves. Performing Organization Address [facility] Phone Number [address] [address] [phone] CENTER Lipase (08/25/2018 2:24 AM ASSISTANT SURVEYOR) Lipase 26 8 - 78 U/L [facility] Specimen Blood Performing Organization Address [facility] Phone Number [address] [address] [phone] CENTER Creatine Kinase (CK) (08/25/2018 2:24 AM ASSISTANT SURVEYOR) Total CK 49 29 - 200 U/L [facility] Specimen Blood Performing Organization Address [facility] Phone Number [address] [address] [phone] [place] Acetaminophen level (08/25/2018 2:24 AM ASSISTANT SURVEYOR) Acetaminophen Level <5.7 (L) 10.0 - 30.0 ug/mL [facility] Specimen Blood Narrative Performed At Therapeutic Range: 10.0-30.0 g/mL [facility] Toxic Levels:>200.0 g/mL Performing Organization Address [facility] Phone Number [address] [address] [place] Salicylate level (08/25/2018 2:24 AM ASSISTANT SURVEYOR) Salicylate Lvl <5.0 (L) 15.0 - 30.0 mg/dL [facility] Specimen Blood Narrative Performed At Therapeutic Range: 15.0-30.0 mg/dL [facility] Toxic: >30.0 mg/dL [place]:>70.0 mg/dL Performing Organization Address [facility] Phone Number [address] [address] [place] Hepatic function panel (08/25/2018 2:24 AM ASSISTANT SURVEYOR) Protein, Total 5.9 (L) 6.0 - 8.3 gm/dL [facility] Albumin 3.6 3.5 - 5.0 g/dL [facility] Total Bilirubin 0.6 0.2 - 1.2 mg/dL [facility] Bilirubin, Direct 0.2 0.1 - 0.5 mg/dL [facility] Alkaline Phosphatase 68 40 - 150 U/L [facility] AST 14 5 - 34 U/L [facility] ALT 11 6 - 55 U/L [facility] Specimen Blood Performing Organization Address City/State/Zipcode Phone Number [facility] [address] [place] [address] CENTER after 02/23/2018 Advance Directives For more information, please contact:[facility] [place], [place] [phone] Code Status Date Activated Date Inactivated Comments Full Code 08/25/2018 2:20 AM This code status was determined by: Patient
--- OUTSIDE RECORDS SUMMARY | 2019-02-24 11:55 | XMS REPORT ---
:1985 [facility] Address [address] [place] [id number] Care Team Providers Name Role Phone FRANCIS [...] Comments SODIUM (BEAKER) (test 139 meq/L 136-145 erjt=376) POTASSIUM (BEAKER) (test 3.9 meq/L 3.5-5.1 ylzn=462) CHLORIDE (BEAKER) (test 103 meq/L 98-107 gyez=392) CO2 (BEAKER) (test lpob=431) 28 meq/L 22-29 BLOOD UREA NITROGEN (BEAKER) 12 mg/dL 7-21 (test yarx=000) CREATININE (BEAKER) (test 0.72 mg/dL 0.57-1.25 zpfp=158) GLUCOSE RANDOM (BEAKER) 90 mg/dL 70-105 (test krxm=441) CALCIUM (BEAKER) (test 9.1 mg/dL 8.4-10.2 ixiw=951) EGFR (BEAKER) (test 93 mL/min/1.73 sq m ESTIMATED GFR IS NOT hupd=2414) ACCURATE CREATININE CLEARANCE IN PREDICTING GLOMERULAR FILTRATION RATE. ESTIMATED GFR IS NOT APPLICABLE FOR DIALYSIS PATIENTS. BLOOD [id number] 10:36:00 Test Item Value Reference Range Comments CULTURE (BEAKER) (test oknk=9380) No growth in 5 days BLOOD [id number] 10:35:00 Test Item Value Reference Range Comments CULTURE (BEAKER) (test bvvf=4106) No growth in 5 days [id number] 07:09:00 Test Item Value Reference Range Comments MAGNESIUM (BEAKER) (test jrwo=739) 2.4 mg/dL 1.6-2.6 BASIC METABOLIC [id number] 07:09:00 Test Item Value Reference Range Comments SODIUM (BEAKER) (test 141 meq/L 136-145 eypq=814) POTASSIUM (BEAKER) (test 4.0 meq/L 3.5-5.1 gtpo=483) CHLORIDE (BEAKER) (test 107 meq/L 98-107 wdjf=350) CO2 (BEAKER) (test 27 meq/L 22-29 yfcm=568) BLOOD UREA NITROGEN 10 mg/dL 7-21 (BEAKER) (test ayru=346) CREATININE (BEAKER) (test 0.72 mg/dL 0.57-1.25 ggna=036) GLUCOSE RANDOM (BEAKER) 97 mg/dL 70-105 (test ctqx=192) CALCIUM (BEAKER) (test 9.4 mg/dL 8.4-10.2 szyf=256) EGFR (BEAKER) (test 93 mL/min/1.73 sq m ESTIMATED GFR IS NOT mwqh=8977) ACCURATE CREATININE CLEARANCE IN PREDICTING GLOMERULAR FILTRATION RATE. ESTIMATED GFR IS NOT APPLICABLE FOR DIALYSIS PATIENTS. SPUTUM CULTURE + GRAM [id number] 15:12:00 Test Item Value Reference Range Comments CULTURE (BEAKER) (test STAPHYLOCOCCUS AUREUS 2+ Staphylococcus lstp=6802) aureus Clindamycin (test code=10) Erythromycin (test code=4) Linezolid (test code=40) Nitrofurantoin (test code=23) Oxacillin (test code=14) Rifampin (test code=43) Tetracycline (test code=2) Trimethoprim + Sulfamethoxazole (test code=47) Vancomycin (test code=13) GRAM STAIN RESULT 4+ WBCs (BEAKER) (test hlcl=7893) GRAM STAIN RESULT No epithelial cells (BEAKER) (test yawc=639698) GRAM STAIN RESULT No organisms seen (BEAKER) (test qkju=753080) 2+ Normal respiratory leon presentRAD, CHEST, 1 VIEW, NON [id number] 08:10: 00Reason for exam:->coughShould this be performed at the bedside?-> YesFINAL REPORT RAD, CHEST, 1 VIEW, NON DEPT INDICATION: cough COMPARISON: August 25, 2018 FINDINGS: Portable frontal view of the chest. IMPRESSION: Support Lines: None. Lungs and pleura: Clear lungs. Costophrenic sulci are sharp. No pneumothorax.Heart and mediastinum: Unremarkable. Additional findings: None. Signed: JR Miner Robert MDReport Verified Date/Time: 08/28/2018 08:10:09 Reading Location: [address] Neuro Reading Room BASIC METABOLIC [id number] 07:34:00 Test Item Value Reference Range Comments SODIUM (BEAKER) (test 141 meq/L 136-145 pwki=142) POTASSIUM (BEAKER) (test 3.9 meq/L 3.5-5.1 vnww=255) CHLORIDE (BEAKER) (test 108 meq/L 98-107 mqln=121) CO2 (BEAKER) (test 26 meq/L 22-29 druo=176) BLOOD UREA NITROGEN 9 mg/dL 7-21 (BEAKER) (test bgpi=017) CREATININE (BEAKER) (test 0.67 mg/dL 0.57-1.25 ughk=766) GLUCOSE RANDOM (BEAKER) 80 mg/dL 70-105 (test ddpv=792) CALCIUM (BEAKER) (test 9.0 mg/dL 8.4-10.2 vyvw=349) EGFR (BEAKER) (test 101 mL/min/1.73 sq m ESTIMATED GFR IS NOT fhen=5732) ACCURATE CREATININE CLEARANCE IN PREDICTING GLOMERULAR FILTRATION RATE. ESTIMATED GFR IS NOT APPLICABLE FOR DIALYSIS PATIENTS. CBC W/PLT COUNT & AUTO [id number] 07:02:00 Test Item Value Reference Range Comments WHITE BLOOD CELL COUNT (BEAKER) (test tbsp=013) 5.4 K/ L 3.5-10.5 RED BLOOD CELL COUNT (BEAKER) (test uozp=157) 3.94 M/ L 3.93-5.22 HEMOGLOBIN (BEAKER) (test rqfw=445) 12.2 GM/DL 11.2-15.7 HEMATOCRIT (BEAKER) (test ezmq=044) 36.7 % 34.1-44.9 MEAN CORPUSCULAR VOLUME (BEAKER) (test uhxp=942) 93.1 fL 79.4-94.8 MEAN CORPUSCULAR HEMOGLOBIN (BEAKER) (test 31.0 pg 25.6-32.2 julm=227) MEAN CORPUSCULAR HEMOGLOBIN CONC (BEAKER) (test 33.2 GM/DL 32.2-35.5 tyfq=205) RED CELL DISTRIBUTION WIDTH (BEAKER) (test 12.3 % 11.7-14.4 qysu=121) PLATELET COUNT (BEAKER) (test rzoi=318) 229 K/CU MM 150-450 MEAN PLATELET VOLUME (BEAKER) (test ccdy=996) 9.2 fL 9.4-12.3 NUCLEATED RED BLOOD CELLS (BEAKER) (test 0 /100 WBC 0-0 givc=305) NEUTROPHILS RELATIVE PERCENT (BEAKER) (test 63 % tger=925) LYMPHOCYTES RELATIVE PERCENT (BEAKER) (test 25 % htpl=521) MONOCYTES RELATIVE PERCENT (BEAKER) (test 8 % lmwb=662) EOSINOPHILS RELATIVE PERCENT (BEAKER) (test 3 % tmac=525) BASOPHILS RELATIVE PERCENT (BEAKER) (test 0 % hucx=770) NEUTROPHILS ABSOLUTE COUNT (BEAKER) (test 3.42 K/ L 1.56-6.13 blpp=776) LYMPHOCYTES ABSOLUTE COUNT (BEAKER) (test 1.35 K/ L 1.18-3.74 woul=895) MONOCYTES ABSOLUTE COUNT (BEAKER) (test 0.43 K/ L 0.24-0.36 gcdh=615) EOSINOPHILS ABSOLUTE COUNT (BEAKER) (test 0.17 K/ L 0.04-0.36 uejq=479) BASOPHILS ABSOLUTE COUNT (BEAKER) (test 0.02 K/ L 0.01-0.08 qtvl=893) IMMATURE GRANULOCYTES-RELATIVE PERCENT (BEAKER) 1 % 0-1 (test fzey=9497) POCT-GLUCOSE [id number] 07:54:00 Test Item Value Reference Range Comments POC-GLUCOSE METER (BEAKER) 115 mg/dL 70-110 TESTED AT [facility] [address] [facility] (test gqxh=8087) [facility] [address] [id number] 05:27:00 Test Item Value Reference Range Comments PHOSPHORUS (BEAKER) (test zwcs=817) 2.8 mg/dL 2.3-4.7 [id number] 05:27:00 Test Item Value Reference Range Comments MAGNESIUM (BEAKER) (test okei=609) 2.0 mg/dL 1.6-2.6 BASIC METABOLIC [id number] 05:27:00 Test Item Value Reference Range Comments SODIUM (BEAKER) (test 141 meq/L 136-145 bfip=318) POTASSIUM (BEAKER) (test 3.7 meq/L 3.5-5.1 kyib=175) CHLORIDE (BEAKER) (test 109 meq/L 98-107 jevm=346) CO2 (BEAKER) (test 25 meq/L 22-29 gtuq=559) BLOOD UREA NITROGEN 8 mg/dL 7-21 (BEAKER) (test tiuj=923) CREATININE (BEAKER) (test 0.72 mg/dL 0.57-1.25 acbc=764) GLUCOSE RANDOM (BEAKER) 92 mg/dL 70-105 (test sfst=400) CALCIUM (BEAKER) (test 8.7 mg/dL 8.4-10.2 fbfq=842) EGFR (BEAKER) (test 93 mL/min/1.73 sq m ESTIMATED GFR IS NOT jwec=5414) ACCURATE CREATININE CLEARANCE IN PREDICTING GLOMERULAR FILTRATION RATE. ESTIMATED GFR IS NOT APPLICABLE FOR DIALYSIS PATIENTS. CBC W/PLT COUNT & AUTO [id number] 05:07:00 Test Item Value Reference Range Comments WHITE BLOOD CELL COUNT (BEAKER) (test ellm=946) 6.4 K/ L 3.5-10.5 RED BLOOD CELL COUNT (BEAKER) (test yigh=086) 3.66 M/ L 3.93-5.22 HEMOGLOBIN (BEAKER) (test qxkw=288) 11.1 GM/DL 11.2-15.7 HEMATOCRIT (BEAKER) (test tuam=454) 34.0 % 34.1-44.9 MEAN CORPUSCULAR VOLUME (BEAKER) (test xfnx=349) 92.9 fL 79.4-94.8 MEAN CORPUSCULAR HEMOGLOBIN (BEAKER) (test 30.3 pg 25.6-32.2 dprn=308) MEAN CORPUSCULAR HEMOGLOBIN CONC (BEAKER) (test 32.6 GM/DL 32.2-35.5 apsm=142) RED CELL DISTRIBUTION WIDTH (BEAKER) (test 12.5 % 11.7-14.4 kano=229) PLATELET COUNT (BEAKER) (test aayq=223) 206 K/CU MM 150-450 MEAN PLATELET VOLUME (BEAKER) (test ohee=287) 9.4 fL 9.4-12.3 NUCLEATED RED BLOOD CELLS (BEAKER) (test 0 /100 WBC 0-0 mktu=564) NEUTROPHILS RELATIVE PERCENT (BEAKER) (test 78 % xwab=290) LYMPHOCYTES RELATIVE PERCENT (BEAKER) (test 13 % gaxp=443) MONOCYTES RELATIVE PERCENT (BEAKER) (test 7 % epwy=333) EOSINOPHILS RELATIVE PERCENT (BEAKER) (test 1 % qxus=277) BASOPHILS RELATIVE PERCENT (BEAKER) (test 0 % qeyp=289) NEUTROPHILS ABSOLUTE COUNT (BEAKER) (test 5.02 K/ L 1.56-6.13 omfz=691) LYMPHOCYTES ABSOLUTE COUNT (BEAKER) (test 0.82 K/ L 1.18-3.74 qtwr=121) MONOCYTES ABSOLUTE COUNT (BEAKER) (test 0.44 K/ L 0.24-0.36 egqo=637) EOSINOPHILS ABSOLUTE COUNT (BEAKER) (test 0.08 K/ L 0.04-0.36 zqwv=024) BASOPHILS ABSOLUTE COUNT (BEAKER) (test 0.02 K/ L 0.01-0.08 czzf=077) IMMATURE GRANULOCYTES-RELATIVE PERCENT (BEAKER) 1 % 0-1 (test neop=8620) POCT-GLUCOSE [id number] 22:21:00 Test Item Value Reference Range Comments POC-GLUCOSE METER (BEAKER) 124 mg/dL 70-110 TESTED AT [address] (test vujp=3387) [facility] [address] POCT-GLUCOSE [id number] 18:26:00 Test Item Value Reference Range Comments POC-GLUCOSE METER (BEAKER) 141 mg/dL 70-110 TESTED AT [address] (test cicr=4052) [facility] [address] POCT-GLUCOSE [id number] 12:49:00 Test Item Value Reference Range Comments POC-GLUCOSE METER (BEAKER) 169 mg/dL 70-110 TESTED AT [address] (test oilo=2533) [place] [id number] 12:31:00 Test Item Value Reference Range Comments PROCALCITONIN (BEAKER) (test tfve=6845) 0.16 ng/mL <0.05 SEPSIS RISK (ng/mL)Low: 0.05-0.50Intermediate: 0.51-2.00High: & gt;=2.01POCT-GLUCOSE [id number] 09:08:00 Test Item Value Reference Range Comments POC-GLUCOSE METER (BEAKER) 115 mg/dL 70-110 TESTED AT [facility] [address] [facility] (test fzei=3792) [facility] [address] [id number] 04:49:00 Test Item Value Reference Range Comments PHOSPHORUS (BEAKER) (test cssw=622) 3.4 mg/dL 2.3-4.7 [id number] 04:49:00 Test Item Value Reference Range Comments MAGNESIUM (BEAKER) (test qqow=082) 2.2 mg/dL 1.6-2.6 BASIC METABOLIC [id number] 04:49:00 Test Item Value Reference Range Comments SODIUM (BEAKER) (test 139 meq/L 136-145 plha=410) POTASSIUM (BEAKER) (test 3.7 meq/L 3.5-5.1 zyur=122) CHLORIDE (BEAKER) (test 109 meq/L 98-107 izse=692) CO2 (BEAKER) (test 23 meq/L 22-29 wefl=424) BLOOD UREA NITROGEN 6 mg/dL 7-21 (BEAKER) (test uoli=343) CREATININE (BEAKER) (test 0.79 mg/dL 0.57-1.25 strd=024) GLUCOSE RANDOM (BEAKER) 117 mg/dL 70-105 (test dihl=363) CALCIUM (BEAKER) (test 8.7 mg/dL 8.4-10.2 dogc=634) EGFR (BEAKER) (test 83 mL/min/1.73 sq m ESTIMATED GFR IS NOT zwkg=5400) ACCURATE CREATININE CLEARANCE IN PREDICTING GLOMERULAR FILTRATION RATE. ESTIMATED GFR IS NOT APPLICABLE FOR DIALYSIS PATIENTS. CBC W/PLT COUNT & AUTO [id number] 04:30:00 Test Item Value Reference Range Comments WHITE BLOOD CELL COUNT (BEAKER) (test oszg=458) 12.8 K/ L 3.5-10.5 RED BLOOD CELL COUNT (BEAKER) (test dzrq=767) 3.53 M/ L 3.93-5.22 HEMOGLOBIN (BEAKER) (test udjc=252) 11.1 GM/DL 11.2-15.7 HEMATOCRIT (BEAKER) (test wfzt=923) 32.8 % 34.1-44.9 MEAN CORPUSCULAR VOLUME (BEAKER) (test qqgd=860) 92.9 fL 79.4-94.8 MEAN CORPUSCULAR HEMOGLOBIN (BEAKER) (test 31.4 pg 25.6-32.2 ojwl=009) MEAN CORPUSCULAR HEMOGLOBIN CONC (BEAKER) (test 33.8 GM/DL 32.2-35.5 yefk=511) RED CELL DISTRIBUTION WIDTH (BEAKER) (test 12.4 % 11.7-14.4 pwgl=172) PLATELET COUNT (BEAKER) (test yumb=762) 179 K/CU MM 150-450 MEAN PLATELET VOLUME (BEAKER) (test snap=899) 9.2 fL 9.4-12.3 NUCLEATED RED BLOOD CELLS (BEAKER) (test 0 /100 WBC 0-0 nbie=307) NEUTROPHILS RELATIVE PERCENT (BEAKER) (test 87 % xseo=295) LYMPHOCYTES RELATIVE PERCENT (BEAKER) (test 7 % uvtb=624) MONOCYTES RELATIVE PERCENT (BEAKER) (test 4 % ewba=388) EOSINOPHILS RELATIVE PERCENT (BEAKER) (test 1 % jgvw=139) BASOPHILS RELATIVE PERCENT (BEAKER) (test 0 % siyt=605) NEUTROPHILS ABSOLUTE COUNT (BEAKER) (test 11.15 K/ L 1.56-6.13 thnu=186) LYMPHOCYTES ABSOLUTE COUNT (BEAKER) (test 0.92 K/ L 1.18-3.74 hbvs=263) MONOCYTES ABSOLUTE COUNT (BEAKER) (test 0.54 K/ L 0.24-0.36 rlzw=098) EOSINOPHILS ABSOLUTE COUNT (BEAKER) (test 0.09 K/ L 0.04-0.36 pmgv=199) BASOPHILS ABSOLUTE COUNT (BEAKER) (test 0.03 K/ L 0.01-0.08 crjy=881) IMMATURE GRANULOCYTES-RELATIVE PERCENT (BEAKER) 1 % 0-1 (test eiep=1102) POCT-GLUCOSE [id number] 23:47:00 Test Item Value Reference Range Comments POC-GLUCOSE METER (BEAKER) 120 mg/dL 70-110 TESTED AT [address] (test axxc=3051) [place] [address] RAD, CHEST, 1 VIEW, NON [id number] 23:16:00Reason for exam:-> reintubationShould this be performed [...] Verified Date/Time: 08/25/2018 23:16: 53 Reading Location: [facility] C013Y CT Body Reading Room PREGNANCY SCREEN, [id number] 13:29:00 Test Item Value Reference Range Comments TEST URINE (BEAKER) (test iebn=150) Negative POCT-GLUCOSE [id number] 12:11:00 Test Item Value Reference Range Comments POC-GLUCOSE METER (BEAKER) 152 mg/dL 70-110 TESTED AT [address] (test wmoi=6749) [place] [address] POCT-GLUCOSE [id number] 09:16:00 Test Item Value Reference Range Comments POC-GLUCOSE METER (BEAKER) 174 mg/dL 70-110 TESTED AT [address] (test zglo=2346) [place] [id number] BLOOD GAS, [id number] 09:14:00 Test Item Value Reference Range Comments PH ARTERIAL (BEAKER) (test lwac=122) 7.41 7.35-7.45 PCO2 ARTERIAL (BEAKER) (test eigu=687) 38 mmHg 35-45 PO2 ARTERIAL (BEAKER) (test onzn=950) 144 mmHg 80-90 O2 SATURATION ARTERIAL (BEAKER) (test uezz=406) 98.9 % 96.0-97.0 HCO3 ARTERIAL (BEAKER) (test ojtt=520) 24 mmol/L 21-29 BASE EXCESS ARTERIAL (BEAKER) (test gtry=924) -0.8 mmol/L -2.0-3.0 PATIENT TEMPERATURE (BEAKER) (test mrxi=1221) 36.2 C FIO2 (BEAKER) (test wrsb=3756) 40.0 % RAD, ABDOMEN/KUB, 1 VIEW [id number] 06:43:00Reason for exam:->ng tube placementShould this be [...] Shaikh Verified Date/Time: 08/25/2018 06:43:19 [id number] Reading Room RAD, CHEST, 1 VIEW, NON [id number] 06:42:00Reason for exam:->post intubationShould this be performed [...] Shaikh Verified Date/Time: 08/25/2018 06:42:12 Reading Location: [facility] C013Y CT Body Reading Room HIV-1 ANTIGEN WITH HIV-1/2 [id number] 03:32:00 Test Item Value Reference Range Comments HIV-1 ANTIGEN WITH HIV 1\T\2 ANTIBODY (2) Nonreactive Nonreactive (BEAKER) (test lqtm=4176) BLOOD GAS, [id number] 03:24:00 Test Item Value Reference Range Comments PH ARTERIAL (BEAKER) (test aglx=296) 7.40 7.35-7.45 PCO2 ARTERIAL (BEAKER) (test eoma=911) 31 mm Hg 35-45 PO2 ARTERIAL (BEAKER) (test bpvy=829) 73 mmHg 80-90 O2 SATURATION ARTERIAL (BEAKER) (test omkb=487) 97.4 % 96.0-97.0 HCO3 ARTERIAL (BEAKER) (test zymv=695) 20 mmol/L 21-29 BASE EXCESS ARTERIAL (BEAKER) (test mpxu=999) -3.6 mmol/L -2.0-3.0 PATIENT TEMPERATURE (BEAKER) (test awxo=1212) 36.5 C FIO2 (BEAKER) (test wpds=9801) 21.0 % RAPID DRUG SCREEN, [id number] 03:19:00 Test Item Value Reference Range Comments BARBITURATE URINE (BEAKER) (test kbed=864) Negative Negative BENZODIAZEPINE SCREEN URINE (BEAKER) (test Negative Negative xhio=363) COCAINE (METAB.) SCREEN (BEAKER) (test qiti=8116) Negative Negative METHADONE SCREEN (BEAKER) (test uywp=0136) Negative Negative OPIATE SCREEN URINE (BEAKER) (test bcfi=277) Negative Negative CANNABINOID SCREEN URINE (BEAKER) (test zhll=717) Negative Negative AMPH/METHAMPH SCREEN (BEAKER) (test rkzw=7312) Negative Negative PHENCYCLIDINE SCREEN URINE (BEAKER) (test lkjd=756) Negative Negative OXYCODONE SCREEN URINE (BEAKER) (test njew=1124) Negative Negative DRUG CUTOFF CONC.Cocaine 300 ng/mL Cannabinoid 50 ng/mL Benzodiazepine 200 ng/mLBarbiturate 200 ng/ mLPhencyclidine 25 ng/mLOpiate 300 ng/mLMethadone 300 ng/mLAmphetamine/ 1000 ng/mL MethamphetamineOxycodone 300 ng/mLThis assay provides an unconfirmed qualitative test result for the clinical management of patients in emergency situations. Chain of custody not maintained. Some lndk-sib-fuuuakt medications, as well as adulterants, may cause inaccurate results. Clinical correlation should be applied. A more comprehensive drug screen or confirmation of a detected drug may be performed upon request.PROTHROMBIN TIME/[id number] 03:17:00 Test Item Value Reference Range Comments PROTIME (BEAKER) (test dcxe=609) 14.6 seconds 11.7-14.7 INR (BEAKER) (test yftf=556) 1.1 <=5.9 RECOMMENDED COUMADIN/WARFARIN INR THERAPY RANGESSTANDARD DOSE: 2.0 - 3.0 Includes: PROPHYLAXIS forvenous thrombosis, systemic embolization; TREATMENT for venous thrombosis and/or pulmonary embolus.HIGH RISK: Target INR is 2.5-3.5 for patients with mechanical heart valves.PT/[id number] 03:17:00 Test Item Value Reference Range Comments PROTIME (BEAKER) (test cxgq=570) 14.6 seconds 11.7-14.7 INR (BEAKER) (test pnvk=722) 1.1 <=5.9 PARTIAL THROMBOPLASTIN TIME (BEAKER) (test 28.4 seconds 22.5-36.0 vgwa=800) RECOMMENDED COUMADIN/WARFARIN INR THERAPY RANGESSTANDARD DOSE: 2.0 - 3.0 Includes: PROPHYLAXIS forvenous thrombosis, systemic embolization; TREATMENT for venous thrombosis and/or pulmonary embolus.HIGH RISK: Target INR is 2.5-3.5 for patients with mechanical heart valves.ACETAMINOPHEN [id number] 03:13:00 Test Item Value Reference Range Comments ACETAMINOPHEN LEVEL (BEAKER) (test wxhv=253) < ug/mL 10.0-30.0 Therapeutic Range: 10.0-30.0 g/mLToxic Levels: >200.0 g/mLCBC W/PLT COUNT & AUTO [id number] 03:13:00 Test Item Value Reference Range Comments WHITE BLOOD CELL COUNT (BEAKER) (test tgnz=656) 6.7 K/ L 3.5-10.5 RED BLOOD CELL COUNT (BEAKER) (test pjgl=399) 3.64 M/ L 3.93-5.22 HEMOGLOBIN (BEAKER) (test qxui=831) 11.3 GM/DL 11.2-15.7 HEMATOCRIT (BEAKER) (test wmet=969) 33.8 % 34.1-44.9 MEAN CORPUSCULAR VOLUME (BEAKER) (test qraf=628) 92.9 fL 79.4-94.8 MEAN CORPUSCULAR HEMOGLOBIN (BEAKER) (test 31.0 pg 25.6-32.2 hwjw=652) MEAN CORPUSCULAR HEMOGLOBIN CONC (BEAKER) (test 33.4 GM/DL 32.2-35.5 pzte=341) RED CELL DISTRIBUTION WIDTH (BEAKER) (test 12.4 % 11.7-14.4 aien=470) PLATELET COUNT (BEAKER) (test slxf=547) 182 K/CU MM 150-450 MEAN PLATELET VOLUME (BEAKER) (test xxam=586) 8.9 fL 9.4-12.3 NUCLEATED RED BLOOD CELLS (BEAKER) (test 0 /100 WBC 0-0 fbax=986) NEUTROPHILS RELATIVE PERCENT (BEAKER) (test 81 % mhgg=352) LYMPHOCYTES RELATIVE PERCENT (BEAKER) (test 13 % vkdx=630) MONOCYTES RELATIVE PERCENT (BEAKER) (test 5 % kmdw=248) EOSINOPHILS RELATIVE PERCENT (BEAKER) (test 1 % dbri=236) BASOPHILS RELATIVE PERCENT (BEAKER) (test 0 % jczk=655) NEUTROPHILS ABSOLUTE COUNT (BEAKER) (test 5.40 K/ L 1.56-6.13 styc=398) LYMPHOCYTES ABSOLUTE COUNT (BEAKER) (test 0.83 K/ L 1.18-3.74 wkti=738) MONOCYTES ABSOLUTE COUNT (BEAKER) (test 0.36 K/ L 0.24-0.36 jntx=054) EOSINOPHILS ABSOLUTE COUNT (BEAKER) (test 0.03 K/ L 0.04-0.36 vrpo=304) BASOPHILS ABSOLUTE COUNT (BEAKER) (test 0.02 K/ L 0.01-0.08 isms=304) IMMATURE GRANULOCYTES-RELATIVE PERCENT (BEAKER) 0 % 0-1 (test goaf=0456) SALICYLATE [id number] 03:12:00 Test Item Value Reference Range Comments SALICYLATE LEVEL (BEAKER) (test yzqh=119) < mg/dL 15.0-30.0 Therapeutic Range: 15.0-30.0 mg/dLToxic: >30.0 mg/dL Lethal: >70.0 mg/dLTROPONIN [id number] 03:08:00 Test Item Value Reference Range Comments TROPONIN I (BEAKER) (test fuhx=463) < ng/mL 0.00-0.03 Troponin I (TnI) levels [...] failure, acidosis, acute neurological disease, and persistent tachyarrhythmia.[id number] 03:02:00 Test Item Value Reference Range Comments PHOSPHORUS (BEAKER) (test hpqw=306) 2.9 mg/dL 2.3-4.7 [id number] 03:02:00 Test Item Value Reference Range Comments MAGNESIUM (BEAKER) (test lzdm=923) 1.9 mg/dL 1.6-2.6 BASIC METABOLIC [id number] 03:02:00 Test Item Value Reference Range Comments SODIUM (BEAKER) (test 140 meq/L 136-145 ahui=185) POTASSIUM (BEAKER) (test 4.2 meq/L 3.5-5.1 srym=272) CHLORIDE (BEAKER) (test 111 meq/L 98-107 mlob=483) CO2 (BEAKER) (test 23 meq/L 22-29 smhp=841) BLOOD UREA NITROGEN 9 mg/dL 7-21 (BEAKER) (test okej=931) CREATININE (BEAKER) (test 0.77 mg/dL 0.57-1.25 bfwl=782) GLUCOSE RANDOM (BEAKER) 125 mg/dL 70-105 (test limz=645) CALCIUM (BEAKER) (test 8.1 mg/dL 8.4-10.2 atvm=184) EGFR (BEAKER) (test 86 mL/min/1.73 sq m ESTIMATED GFR IS NOT oukk=6524) ACCURATE CREATININE CLEARANCE IN PREDICTING GLOMERULAR FILTRATION RATE. ESTIMATED GFR IS NOT APPLICABLE FOR DIALYSIS PATIENTS. HEPATIC FUNCTION [id number] 03:02:00 Test Item Value Reference Range Comments TOTAL PROTEIN (BEAKER) (test tnbw=325) 5.9 gm/dL 6.0-8.3 ALBUMIN (BEAKER) (test defv=3958) 3.6 g/dL 3.5-5.0 BILIRUBIN TOTAL (BEAKER) (test qvgl=250) 0.6 mg/dL 0.2-1.2 BILIRUBIN DIRECT (BEAKER) (test yjax=658) 0.2 mg/dL 0.1-0.5 ALKALINE PHOSPHATASE (BEAKER) (test fwjl=255) 68 U/L 40-150 AST (SGOT) (BEAKER) (test sooh=642) 14 U/L 5-34 ALT (SGPT) (BEAKER) (test iauh=721) 11 U/L 6-55 CREATINE KINASE (CK)2018-08-25 03:02:00 Test Item Value Reference Range Comments CREATINE KINASE TOTAL (BEAKER) (test aohe=940) 49 U/L 29-200 [id number] 03:02:00 Test Item Value Reference Range Comments LIPASE (BEAKER) (test ojrc=280) 26 U/L 8-78 [id number] 02:59:00 Test Item Value Reference Range Comments ETHANOL (BEAKER) (test mdlg=856) < mg/dL <=10 LACTIC ACID, VENOUS, WHOLE [id number] 02:56:00 Test Item Value Reference Range Comments LACTATE BLOOD VENOUS (2) (BEAKER) (test 1.8 mmol/L 0.5-2.2 kqin=7131) [id number] 02:53:00 Test Item Value Reference Range Comments AMMONIA (BEAKER) (test esuj=113) 16 mol/L 18-72 URINALYSIS W/ REFLEX URINE [id number] 02:47:00 Test Item Value Reference Range Comments COLOR (BEAKER) (test qelw=053) Light Yellow CLARITY (BEAKER) (test xlyz=176) Clear SPECIFIC GRAVITY UA (BEAKER) (test inrk=313) 1.010 1.001-1.035 PH UA (BEAKER) (test auiq=355) 6.0 5.0-8.0 PROTEIN UA (BEAKER) (test dsem=926) 20 mg/dL Negative GLUCOSE UA (BEAKER) (test ignw=114) Negative Negative KETONES UA (BEAKER) (test cqjl=022) Negative Negative BILIRUBIN UA (BEAKER) (test idgk=134) Negative Negative BLOOD UA (BEAKER) (test asyk=696) Small Negative NITRITE UA (BEAKER) (test radh=045) Negative Negative LEUKOCYTE ESTERASE UA (BEAKER) (test nmcs=006) Negative Negative UROBILINOGEN UA (BEAKER) (test nzzg=241) 0.2 mg/dL 0.2-1.0 RBC UA (BEAKER) (test kcwy=387) 1 /HPF WBC UA (BEAKER) (test tfrf=611) 1 /HPF BACTERIA (BEAKER) (test yhou=745) Rare MUCUS (BEAKER) (test aspg=9620) Occasional HYALINE CASTS (BEAKER) (test itrg=854) 1 /LPF GRANULAR CASTS (BEAKER) (test tokw=300) 1 /LPF SOURCE(BEAKER) (test hqlv=9994) POCT-GLUCOSE [id number] 02:11:00 Test Item Value Reference Range Comments POC-GLUCOSE METER (BEAKER) 151 mg/dL 70-110 TESTED AT [facility] [address] (test oahw=8010) [facility] [id number]
--- NOTE | 2019-02-24 12:30 | RAD REPORT ---
EXAM DESCRIPTION: CT - Ct Stroke Brain Wo Cont - 02/24/2019 12:22 pm CLINICAL HISTORY: Left facial numbness COMPARISON: August 2018 TECHNIQUE: Computed axial tomography of the head was obtained. All CT scans are performed using dose optimization technique as appropriate and may include automated exposure control or mA/KV adjustment according to patient size. FINDINGS: An intracranial bleed is not seen . The ventricles are normal in caliber. No extra-axial fluid collection is noted. No abnormal enhancement seen. Fluid within the sinuses/ mastoids is not seen. IMPRESSION: No acute intracranial abnormality is seen. If patient's symptoms persist MRI of the bra in would be recommended. Dr Castellon of the emergency room was notified at approximately 12:05 p.m. February 24, 2019
[2019-02-24 12:34] LABS: Absolute Lymphocytes (CBC) 1.1 K/uL (0.7-4.9); Absolute Monocytes 0.3 K/uL (0.1-1.3); Absolute Neutrophil 4.6 K/uL (1.8-8.0); Basophils % 0.6 % (0-1.3); Eosinophils % 0.8 % (0-4.4); Hematocrit 39.4 % (36.0-45.0); Lymphocytes % 17.6 % (15.3-44.8); MPV 7.6 fL (7.6-11.3); Monocytes % 4.6 % (3.3-12.3); RBC Red Blood Cell Count 4.38 M/uL (3.86-4.86)
[2019-02-24 12:35] LABS: Protime INR 1.05
[2019-02-24] MEDS ORDERED: NA CHLORIDE 0.9% 250 ML ONE (12:54)
[2019-02-24] MEDS ORDERED: ALTEPLASE 100 ML IV ONE (12:55)
--- NOTE | 2019-02-24 13:02 | RAD REPORT ---
EXAM DESCRIPTION: RAD - Chest Single View - 02/24/2019 12:43 pm CLINICAL HISTORY: stroke protocol Chest pain. COMPARISON: Chest Single View dated 01/01/2019; Chest Single View dated 08/24/2018; Chest Single View dated 05/13/2018; CHEST PA AND LAT 2 VIEW dated 07/06/2015 FINDINGS: Portable technique limits examination quality. The lungs are grossly clear. The heart is normal in size. No displaced fractures. IMPRESSION: No acute intrathoracic process suspected.
[2019-02-24 13:29] LABS: Urine Blood NEGATIVE (NEG); Urine Glucose NEGATIVE (NEG); Urine Protein NEGATIVE (NEG); Urine Specific Gravity 1.015 (1.005-1.030)
[2019-02-24 13:48] LABS: Potassium 3.6 mmol/L (3.5-5.1)
[2019-02-24] MEDS ORDERED: MAGNESIUM SULFATE 1 gm IVPB 1 GM/100 ML BAG IV ONE (14:00)
[2019-02-24] MEDS ORDERED: MEPERIDINE HCL 25 MG/0.5 ML ONE (14:00)
[2019-02-24] MEDS ORDERED: METOCLOPRAMIDE 10 MG/2mL INJ ONE (14:00)
--- NOTE | 2019-02-24 15:38 | EKG ---
Test Date: 2019-02-24 Test Time: 12:08:36 Direct Service Professional: ELYSE MEASUREMENT RESULTS: Intervals: Rate: 66 TX: 146 QRSD: 82 QT: 392 QTc: 410 [place]: P: 57 TX: 146 QRS: -2 T: 33 INTERPRETIVE STATEMENTS: Normal sinus rhythm Low voltage QRS Borderline ECG Compared to ECG 01/01/2019 10:51:54 No significant changes Electronically Signed On 02-24-19 15:37:41 CDT by eJan Bella
--- NOTE | 2019-02-24 16:16 | ER ---
Nurse's Notes [facility] Name: Angelica Salcedo Age: 33 yrs Sex: Female : 1985 Arrival Date: 02/24/2019 Time: 11:52 Bed 3 Private MD: Diagnosis: Weakness;Paresthesia of skin;Suspected CVA Presentation: 02/24 11:54 Presenting complaint: Patient states: chest pain and HTN started last night, woke up sv with these same symptoms about 0640. c/o right sided facial, right shoulder to elbow numbness, frontal headache started at 0930 today. Transition of care: patient was not received from another setting of care. Onset of symptoms was February 24, 2019 at 09:30. Care prior to arrival: None. 11:54 Method Of Arrival: Wheelchair sv 11:54 Acuity: DIEGO 2 sv 12:22 Risk Assessment: Do you want to hurt yourself or someone else? Patient reports no hb desire to harm self or others. Initial Sepsis Screen: Does the patient meet any 2 criteria? No. Patient's initial sepsis screen is negative. Does the patient have a suspected source of infection? No. Patient's initial sepsis screen is negative. Triage Assessment: 11:55 General: Appears in no apparent distress. uncomfortable, slender, well developed, sv Behavior is cooperative, appropriate for age, anxious. Pain: Complains of pain in chest. Pain:. Neuro: Level of Consciousness is awake, alert, obeys commands, Oriented to person, place, time, situation, Leases And Land Supervisor are equal bilaterally Moves all extremities. Full function Gait is steady, Speech is normal, Facial symmetry appears normal, Reports numbness in right side of forehead, right advent, right eye, right zygomatic area, right cheek and right mandible since 0930. Respiratory: Respiratory effort is even, unlabored, Respiratory pattern is regular, symmetrical. Historical: - Allergies: 12:04 Amoxicillin; sv 12:04 Bactrim; sv 12:04 Cipro; sv 12:04 PENICILLINS; sv - PMHx: 12:04 Anxiety; Depression; Hypertension; sv - PSHx: 12:04 Hysterectomy; Knee surgery; sv - Immunization history:: Adult Immunizations up to date. - Social history:: Smoking status: Patient/guardian denies using tobacco. - Ebola Screening: : No symptoms or risks identified at this time. - Family history:: not pertinent. - Hospitalizations: : No recent hospitalization is reported. Screenin:15 Abuse screen: Denies threats or abuse. Denies injuries from another. Nutritional ss screening: No deficits noted. Tuberculosis screening: Never had TB. 12:20 Fall Risk None identified. hb Assessment: 12:05 Reassessment: Dr. Castellon at bedside. ss 12:20 General: Appears in no apparent distress. Behavior is calm, cooperative. Pain: hb Complains of pain in chest Pain does not radiate. Pain currently is 0 out of 10 on a pain scale. at worst was 3 out of 10 on a pain scale. Pain began gradually, 3 hours ago. Neuro: Level of Consciousness is awake, alert, obeys commands, Oriented to person, place, time, situation, Leases And Land Supervisor are equal bilaterally Moves all extremities. Gait is steady, Speech is normal, Facial symmetry appears normal, Pupils are PERRLA, Intact. Cardiovascular: Heart tones S1 S2 present Capillary refill < 3 seconds Patient's skin is warm and dry. Respiratory: Airway is patent Respiratory effort is even, unlabored, Respiratory pattern is regular, symmetrical, Breath sounds are clear bilaterally. GI: No signs and/or symptoms were reported involving the gastrointestinal system. : No signs and/or symptoms were reported regarding the genitourinary system. EENT: No signs and/or symptoms were reported regarding the EENT system. Derm: Skin is intact, is healthy with good turgor. Musculoskeletal: No signs and/or symptoms reported regarding the musculoskeletal system. 12:50 Reassessment: TPA infusion started to RIGHT AC, pt reports right sided facial hb "heaviness" and right facial + right upper arm numbness. GCS15, VSS. See TPA administration flowsheet. 13:23 Reassessment: TPA still infusing at this time. Pt reports mild improvement of ss paraesthesia to upper lip. 13:32 Reassessment: Pt c/o increased pain to R arm and R hand. Described as cramping. Dr. tyson Castellon notified. MRI ordered. 14:00 Reassessment: Patient appears in no apparent distress at this time. Patient and/or hb family updated on plan of care and expected duration. Pain level reassessed. Patient is alert, oriented x 3, equal unlabored respirations, skin warm/dry/pink. 14:55 Reassessment: Patient appears in no apparent distress at this time. Patient and/or hb family updated on plan of care and expected duration. Pain level reassessed. Patient is alert, oriented x 3, equal unlabored respirations, skin warm/dry/pink. 15:30 Reassessment: Patient appears in no apparent distress at this time. Patient and/or hb family updated on plan of care and expected duration. Pain level reassessed. Patient is alert, oriented x 3, equal unlabored respirations, skin warm/dry/pink. 16:30 Reassessment: Patient appears in no apparent distress at this time. No changes from hb previously documented assessment. Patient and/or family updated on plan of care and expected duration. Pain level reassessed. Patient is alert, oriented x 3, equal unlabored respirations, skin warm/dry/pink. 17:30 Reassessment: Patient appears in no apparent distress at this time. No changes from hb previously documented assessment. Patient and/or family updated on plan of care and expected duration. Pain level reassessed. Patient is alert, oriented x 3, equal unlabored respirations, skin warm/dry/pink. 18:19 Reassessment: Patient appears in no apparent distress at this time. Patient and/or hb family updated on plan of care and expected duration. Pain level reassessed. Patient is alert, oriented x 3, equal unlabored respirations, skin warm/dry/pink. Admission ordered, awaiting room assignment at this time. NIHSS 1 for right sided facial and right upper arm paresthesia. GCS 15, NAD, VSS. Family at bedside. Vital Signs: 12:04 Weight 66.68 kg; Height 5 ft. 3 in. (160.02 cm); sv 12:08 BP 134 / 92; Pulse 69; Resp 18; Pulse Ox 100% on R/A; ss 12:30 BP 126 / 94; Pulse 92; Resp 14; Pulse Ox 100% on R/A; ss 12:35 Weight 65.6 kg (M); hb 13:24 BP 123 / 82; Pulse 61; Resp 15; Pulse Ox 99% on R/A; Pain 7/10; ss 14:05 BP 115 / 79; Pulse 58; Resp 15; Pulse Ox 100% on R/A; ss 16:50 BP 124 / 84; Pulse 67; Resp 15; Pulse Ox 100% on R/A; hb 18:00 BP 118 / 91; Pulse 86; Resp 15; Pulse Ox 99% on R/A; hb 19:42 BP 120 / 88; Pulse 55; Resp 18; Pulse Ox 100% on R/A; tl2 12:35 Body Mass Index 25.62 (65.60 kg, 160.02 cm) hb Arturo Coma Score: 12:03 Eye Response: spontaneous(4). Verbal Response: oriented(5). Motor Response: obeys ss commands(6). Total: 15. 13:00 Eye Response: spontaneous(4). Verbal Response: oriented(5). Motor Response: obeys ss commands(6). Total: 15. NIH Stroke Scale Scores: 12:22 NIHSS Score: 2 bankruptcy attorney Course: 11:52 Patient arrived in ED. mr 11:54 Arm band placed on. sv 12:00 Inserted saline lock: 20 gauge in right antecubital area, using aseptic technique. ss ,using aseptic technique. insertion by barney Rivera RN Blood collected. 12:03 Triage completed. sv 12:03 Initial lab(s) drawn, by ammunition assembly ii laborer, sent to lab. EKG done, by ED staff, reviewed by ss Georges Castellon MD. 12:09 Georges Castellon MD is Attending Physician. rn 12:15 Patient has correct armband on for positive identification. Bed in low position. Call ss light in reach. Side rails up X 1. rivet tester on. Pulse ox on. NIBP on. 12:20 Barney Rivera, RN is Primary Nurse. hb 12:20 Patient maintains SpO2 saturation greater than 95% on room air. hb 12:22 CT Stroke Brain w/o Contrast In Process Unspecified. EDMS 12:44 Stroke CXR 1 View In Process Unspecified. EDMS 12:44 X-ray completed. Portable x-ray completed in exam room. Patient tolerated procedure sw well. 16:15 Jasson Nolen DO is Hospitalizing Provider. rn 16:17 MRA Head Wo Cont In Process Unspecified. EDMS 16:28 Brain W/Wo Cont In Process Unspecified. EDMS 16:28 MRA Neck W/Wo Cont In Process Unspecified. EDMS Administered Medications: 12:50 Drug: ACTIvase {Co-Signature: hb (Barney Rivera RN).} Route: IV Thrombolytics; Rate: iw calculated rate; Infused Over: 60 mins; 13:52 Drug: Magnesium Sulfate 1 grams Route: IVPB; Infused Over: 1 hrs; Site: left ss antecubital; 13:52 Drug: Demerol - Meperidine 12.5 mg Route: IVP; Site: left antecubital; 13:53 Drug: Reglan 10 mg Route: IVP; Site: left antecubital; Point of Care Testing: Blood Glucose: 12:03 Blood Glucose: 95 mg/dL; Ranges: Outcome: 16:16 Decision to Hospitalize by Provider. rn 20:04 Patient left the ED. miky NIH Stroke Scale - NIH Stroke Score Date: 02/24/2019 Time: 12:22 Total Score = 2 1a. Level of Consciousness (LOC) - 0(Alert) 1b. Level of Consciousness (LOC) (Year \\T\\ Age) - 0(Both) 1c. LOC Commands (Open \\T\\ Closes Eyes/Eyedotter) - 0(Both) 2. Best Gaze (Lateral Gaze Paresis) - 0(Normal) 3. Visual Field Loss - 0(No visual loss) 4. Facial Palsy - 1(Minor Paralysis) 5a. Left Arm: Motor (10-second hold) - 0(No drift) 5b. Right Arm: Motor (10-second hold) - 0(No drift) 6a. Left Leg: Motor (5-second hold - always test supine) - 0(No drift) 6b. Right Leg: Motor (5-second hold - always test supine) - 0(No drift) 7. Limb Ataxia (finger/nose \\T\\ heel/han - test with eyes open) - 0(Absent) 8. Sensory Loss (pinprick arms/legs/face) - 1(Mild to moderate loss) 9. Best Language: Aphasia (description/naming/reading) - 0(No aphasia) 10. Dysarthria (speech clarity - read or repeat words) - 0(Normal) 11. Extinction and Inattention (visual/tactile/auditory/spatial/personal) - 0(No abnormality) Initials: rn Signatures: Dispatcher [employer] Edelmira Chu RN RN sv Rivera, Mary mr Ballard, Brenda, RN RN bb Williams, Irene, RN RN iw Nieto, Roman, MD MD rn Smirch, Shelby, RN RN Saba Howell Heather, RN RN hb Iesha Hughes RN RN tl2 Barney Rivera RN hb Corrections: (The following items were deleted from the chart) 15:57 12:50 Reassessment: TPA infusion started to RIGHT AC, pt reports right sided hb facial "heaviness" and right facial + right upper arm numbness. GCS15, VSS. 19:43 19:42 BP 132 / 94; Pulse 82bpm; Resp 17bpm; Pulse Ox 96% RA; tl2 tl2
--- NOTE | 2019-02-24 16:17 | EDPHYS ---
Physician Documentation [facility] Name: Angelica Salcedo Age: 33 yrs Sex: Female : 1985 Arrival Date: 02/24/2019 Time: 11:52 Bed 3 Private MD: ED Physician Georges Castellon HPI: 02/24 12:23 This 33 yrs old Female presents to ER via Wheelchair with complaints of Chest rn Pain, High Blood Pressure, right side numbness, Headache. 12:24 The patient presents to the emergency department with weakness of the right upper rn extremity, right side of the face, paresthesias of the. Onset: The symptoms/episode began/occurred today, at 09:30. Associated signs and symptoms: Pertinent positives: headache, paresthesias, weakness. Severity of symptoms: At their worst the symptoms were mild in the emergency department the symptoms are unchanged. Current symptoms: paralysis or paresis, that is mild. The patient has not experienced similar symptoms in the past. REports sudden onset of headache, right facial tingling right arm weakness and tingling. NO head trauma, has never happened before. No vision changes. Has anxiety but states her anxiety feels different, waited almost 3 hours thinking would go away, noted high blood pressure at first, BP improved and symptoms still present so came in for evaluation.. Historical: - Allergies: 12:04 Amoxicillin; sv 12:04 Bactrim; sv 12:04 Cipro; sv 12:04 PENICILLINS; sv - PMHx: 12:04 Anxiety; Depression; Hypertension; sv - PSHx: 12:04 Hysterectomy; Knee surgery; sv - Immunization history:: Adult Immunizations up to date. - Social history:: Smoking status: Patient/guardian denies using tobacco. - Ebola Screening: : No symptoms or risks identified at this time. - Family history:: not pertinent. - Hospitalizations: : No recent hospitalization is reported. ROS: 12:24 Constitutional: Negative for fever, chills, and weight loss, Eyes: Negative for injury, rn pain, redness, and discharge, Neck: Negative for injury, pain, and swelling, Cardiovascular: Negative for palpitations, and edema, Respiratory: Negative for shortness of breath, cough, wheezing, and pleuritic chest pain, Abdomen/GI: Negative for abdominal pain, nausea, vomiting, diarrhea, and constipation, MS/Extremity: Negative for injury and deformity, Skin: Negative for injury, rash, and discoloration, Neuro: Negative for seizure. + headache/weakness/tingling Exam: 12:43 Constitutional: This is a well developed, well nourished patient who is awake, alert, rn appears a little anxious Head/Face: Normocephalic, atraumatic. Eyes: Pupils equal round and reactive to light, extra-ocular motions intact. Lids and lashes normal. Conjunctiva and sclera are non-icteric and not injected. Cornea within normal limits. Periorbital areas with no swelling, redness, or edema. ENT: MMM, no tongue deviation Cardiovascular: Regular rate and rhythm with a normal S1 and S2. No gallops, murmurs, or rubs. No JVD. No pulse deficits. Respiratory: Lungs have equal breath sounds bilaterally, clear to auscultation. No increased work of breathing, no retractions or nasal flaring. Abdomen/GI: soft, non-tender Skin: Warm, dry with normal turgor. Normal color with no rashes, no lesions, and no evidence of cellulitis. MS/ Extremity: Pulses equal, no cyanosis. Neuro: Awake and alert, GCS 15, oriented to person, place, time, and situation. + mild right facial weakness of cheek/NL fold/corner of mouth and paresthesias. + right arm paresthesias and subjective weakness, no drift. No weakness or paresthesia of right leg. Vital Signs: 12:04 Weight 66.68 kg; Height 5 ft. 3 in. (160.02 cm); sv 12:08 BP 134 / 92; Pulse 69; Resp 18; Pulse Ox 100% on R/A; ss 12:30 BP 126 / 94; Pulse 92; Resp 14; Pulse Ox 100% on R/A; ss 12:35 Weight 65.6 kg (M); hb 13:24 BP 123 / 82; Pulse 61; Resp 15; Pulse Ox 99% on R/A; Pain 7/10; ss 14:05 BP 115 / 79; Pulse 58; Resp 15; Pulse Ox 100% on R/A; ss 16:50 BP 124 / 84; Pulse 67; Resp 15; Pulse Ox 100% on R/A; hb 18:00 BP 118 / 91; Pulse 86; Resp 15; Pulse Ox 99% on R/A; hb 19:42 BP 120 / 88; Pulse 55; Resp 18; Pulse Ox 100% on R/A; tl2 12:35 Body Mass Index 25.62 (65.60 kg, 160.02 cm) hb NIH Stroke Scale Scores: 12:22 NIHSS Score: 2 rn Arturo Coma Score: 12:03 Eye Response: spontaneous(4). Verbal Response: oriented(5). Motor Response: obeys ss commands(6). Total: 15. 13:00 Eye Response: spontaneous(4). Verbal Response: oriented(5). Motor Response: obeys ss commands(6). Total: 15. MDM: 12:09 Patient medically screened. rn 12:24 ED course: Reports tingling sensation was intermittent and only for approx 20 seconds rn each episode, now constant and right arm feels heavy. . ED course: States chest pain feels tight, no tearing/ripping/radiation to back, no current chest pain. Reports she mentioned chest pain but is not primary concern. . 12:24 ED course: Had long discussion with patient regarding symptoms and possible CVA. Told rn her this could be CVA vs radiculopathy, vs anxiety vs, metabolic. After long discussion of risks and benefits, explained that waiting on MRI this late in presentation will put her outside of TPA window, she is low risk for complication, and patient chooses to take the risk and get TPA because she is concerned of this being permanent, losing her chance, and "has 2 babies at home". Will get CXR and if normal mediastinum, TPA and transfer to [facility] for neurology. . 12:40 ED course: Patient continues to have right sided paresthesias, heavy right arm, and now rn complains of right face feeling weak/subjective drooping. CT head no acute findings. CXR with normal mediastinum and no ischemia on ECG to explain chest pain. Equal pulses all 4 extremities, joint decision made to TPA, patient understands limitation in testing and that definitive testing such as MRI would put her out of treatment window. Signed consent and all questions answered. . 12:56 ED course: Consulted with Neurology at [facility], states doesn't sound like stroke to rn him, does not recommend giving TPA, recommends migraine cocktail and to call him back. Will discuss with patient. I believe that bolus of TPA already administered. . 13:08 ED course: Had long discussion with patient, I conveyed neurologists ideas and his rn intent to not give TPA, patient tearful and states "something serious in happening to me right now". She states that her headache is mild and knows what migraines feels like and is concerned that numbness and facial symptoms would be permanent if we stop the medication. TPA bolus already given and infusion had already started, very low risk of complication, patient asks to continue TPA understanding risks and concerns. Carla, RN present for entire conversation. . 13:32 ED course: TPA near completion, now that have more time, will obtain MRI stroke rn protocol. . 16:12 ED course: Consulted with Dr. Jean-Baptiste, states since TPA completed and symptoms rn resolved, ok to admit, will consult, continue stroke w/u with MRI/ECHO. will admit to Dr. Nolen with Dr. Jean-Baptiste consult. . 02/24 12:17 Order name: Basic Metabolic Panel; Complete Time: 13:50 ss 02/24 12:17 Order name: CBC with Diff; Complete Time: 12:39 ss 02/24 12:17 Order name: Protime (+inr); Complete Time: 12:39 ss 02/24 12:17 Order name: Ptt, Activated; Complete Time: 12:39 ss 02/24 13:27 Order name: Urine Dipstick--Ancillary (enter results); Complete Time: 13:32 bd 02/24 13:27 Order name: Urine --Ancillary (enter results); Complete Time: 13:32 bd 02/24 12:17 Order name: CT Stroke Brain w/o Contrast; Complete Time: 12:33 ss 02/24 12:17 Order name: Stroke CXR 1 View; Complete Time: 13:12 ss 02/24 15:51 Order name: MRA Head Wo Cont; Complete Time: 17:36 EDMS 02/24 15:55 Order name: Brain W/Wo Cont; Complete Time: 17:36 EDMS 02/24 15:55 Order name: MRA Neck W/Wo Cont; Complete Time: 17:36 EDMS 02/24 18:32 Order name: Glucose, Ancillary Testing; Complete Time: 18:50 EDMS 02/24 12:17 Order name: EKG; Complete Time: 12:18 ss 02/24 12:17 Order name: Accucheck; Complete Time: 12:18 ss 02/24 12:17 Order name: Cardiac monitoring; Complete Time: 12:18 ss 02/24 12:17 Order name: EKG - Nurse/Tech; Complete Time: 12:18 ss 02/24 12:17 Order name: IV Saline Lock; Complete Time: 12:18 ss 02/24 12:17 Order name: Labs collected and sent; Complete Time: 12:18 ss 02/24 12:17 Order name: NPO; Complete Time: 12:18 02/24 12:17 Order name: O2 Per Protocol; Complete Time: 12:19 ss 02/24 12:17 Order name: O2 Sat Monitoring; Complete Time: 12:19 ss 02/24 12:17 Order name: Stroke Swallow Screen; Complete Time: 14:10 ss Administered Medications: 12:50 Drug: ACTIvase {Co-Signature: hb (Carla Rivera RN).} Route: IV Thrombolytics; Rate: iw calculated rate; Infused Over: 60 mins; 13:52 Drug: Magnesium Sulfate 1 grams Route: IVPB; Infused Over: 1 hrs; Site: left antecubital; 13:52 Drug: Demerol - Meperidine 12.5 mg Route: IVP; Site: left antecubital; 13:53 Drug: Reglan 10 mg Route: IVP; Site: left antecubital; Point of Care Testing: Blood Glucose: 12:03 Blood Glucose: 95 mg/dL; Ranges: Critical Glucose Levels:Adult <50 mg/dl or >400 mg/dl <40 mg/dl or >180 mg/dl Disposition: 02/24/19 16:16 Hospitalization ordered by Jasson Nolen for Inpatient Admission. Preliminary diagnosis are Weakness, Paresthesia of skin, Suspected CVA. - Bed requested for Telemetry/MedSurg (Inpatient). - Status is Inpatient Admission. bb - Condition is Stable. - Problem is new. - Symptoms are resolved. UTI on Admission? No Critical care time excluding procedures: 16:12 Critical care time: Bedside Care: 25 minutes, Consultation: 10 minutes. Total time: 35 rn minutes NIH Stroke Scale - NIH Stroke Score Date: 02/24/2019 Time: 12:22 Total Score = 2 1a. Level of Consciousness (LOC) - 0(Alert) 1b. Level of Consciousness (LOC) (Year \\T\\ Age) - 0(Both) 1c. LOC Commands (Open \\T\\ Closes Eyes/Sack Cleaner) - 0(Both) 2. Best Gaze (Lateral Gaze Paresis) - 0(Normal) 3. Visual Field Loss - 0(No visual loss) 4. Facial Palsy - 1(Minor Paralysis) 5a. Left Arm: Motor (10-second hold) - 0(No drift) 5b. Right Arm: Motor (10-second hold) - 0(No drift) 6a. Left Leg: Motor (5-second hold - always test supine) - 0(No drift) 6b. Right Leg: Motor (5-second hold - always test supine) - 0(No drift) 7. Limb Ataxia (finger/nose \\T\\ heel/han - test with eyes open) - 0(Absent) 8. Sensory Loss (pinprick arms/legs/face) - 1(Mild to moderate loss) 9. Best Language: Aphasia (description/naming/reading) - 0(No aphasia) 10. Dysarthria (speech clarity - read or repeat words) - 0(Normal) 11. Extinction and Inattention (visual/tactile/auditory/spatial/personal) - 0(No abnormality) Initials: rn Signatures: Dispatcher [employer] EDEdelmira Burnette RN Breanne Baptiste RN RN dw Ballard, Brenda, RN RN bb Williams, Irene, RN RN iw Nieto, Roman, MD MD rn Smirch, Shelby, RN RN ss Baxter, Heather, RN RN hb Heather Baxter RN hb Corrections: (The following items were deleted from the chart) 12:50 12:43 Constitutional: This is a well developed, well nourished patient who is rn awake, alert, appears a little anxious Head/Face: Normocephalic, atraumatic. Eyes: Pupils equal round and reactive to light, extra-ocular motions intact. Lids and lashes normal. Conjunctiva and sclera are non-icteric and not injected. Cornea within normal limits. Periorbital areas with no swelling, redness, or edema. ENT: MMM, no tongue deviation Cardiovascular: Regular rate and rhythm with a normal S1 and S2. No gallops, murmurs, or rubs. No JVD. No pulse deficits. Respiratory: Lungs have equal breath sounds bilaterally, clear to auscultation. No increased work of breathing, no retractions or nasal flaring. Abdomen/GI: soft, non-tender Skin: Warm, dry with normal turgor. Normal color with no rashes, no lesions, and no evidence of cellulitis. MS/ Extremity: Pulses equal, no cyanosis. Neuro: Awake and alert, GCS 15, oriented to person, place, time, and situation. + mild right facial weakness and paresthesias. + right arm paresthesias and subjective weakness, no drift. No weakness or paresthesia of right leg. rn 15:50 13:32 MR STROKE PROTOCOL+MRI.RAD.BRZ ordered. EDCO EDCO 18:43 16:16 Hospitalization Ordered by Jasson Nolen DO for Inpatient Admission. dw Preliminary diagnosis is Weakness; Paresthesia of skin; Suspected CVA. Bed requested for Telemetry/MedSurg (Inpatient). Status is Inpatient Admission. Condition is Stable. Problem is new. Symptoms are resolved. UTI on Admission? No. rn 20:04 18:43 02/24/2019 16:16 Hospitalization Ordered by Jasson Nolen DO for bb Inpatient Admission. Preliminary diagnosis is Weakness; Paresthesia of skin; Suspected CVA. Bed requested for Telemetry/MedSurg (Inpatient). Status is Inpatient Admission. Condition is Stable. Problem is new. Symptoms are resolved. UTI on Admission? No. dw
--- NOTE | 2019-02-24 16:49 | RAD REPORT ---
EXAM DESCRIPTION: MRI - Brain W/Wo Cont - 02/24/2019 4:29 pm CLINICAL HISTORY: right arm weakness/paresthesia Headache, CVA COMPARISON: MRA Head Wo Cont dated 02/24/2019 TECHNIQUE: Multi-sequence, multiplanar MR imaging of the brain was performed with contrast. FINDINGS: No intracranial hemorrhage, hydrocephalus, or extra-axial fluid collection. No edema or sh ift of midline structures. No intracranial mass. DWI is negative for acute CVA. The midline structures are normally formed. Mastoid air cells and paranasal sinuses are clear. Post-contrast images show no abnormal enhancement to suggest tumor or infection. IMPRESSION: No acute or concerning intracranial abnormalities. No pathologic post-contrast enhancement suspected.
--- NOTE | 2019-02-24 16:52 | RAD REPORT ---
EXAM DESCRIPTION: MRI - MRA Head Wo Cont - 02/24/2019 4:28 pm CLINICAL HISTORY: right arm weakness/paresthesia CVA COMPARISON: Ct Stroke Brain Wo Cont dated 02/24/2019 FINDINGS: 3D noncontrast [id number] MR angiography of the [place] was performed. No aneurysm, flow-limiting stenosis or vascular malformation is seen. origin of the left spray painter ior communicating artery noted, normal variant. Forward flow seen in codominant vertebral arteries. The visualized dural venous sinuses appear patent. IMPRESSION: No significant flow abnormality of the [place] is identified.
--- NOTE | 2019-02-24 16:53 | RAD REPORT ---
EXAM DESCRIPTION: MRI - MRA Neck W/Wo Cont - 02/24/2019 4:28 pm CLINICAL HISTORY: right arm weakness/paresthesia Headache, CVA COMPARISON: No comparisons FINDINGS: Contrast enhance 2D [id number] MR angiography of the neck vessels was performed. A left aortic arch is noted with normal branching pattern. Widely patent common carotid arteries and subclavian arteries are seen bilaterally. Both internal carotid arteries are normal in size and signa l without evidence of flow abnormality. Antegrade flow is seen in codominant vertebral arteries. IMPRESSION: No significant flow abnormality is seen in the neck vessels.
--- NOTE | 2019-02-24 17:01 | P.HP ---
Certification for Inpatient Patient admitted to: Observation With expected LOS: <2 Midnights Patient will require the following post-hospital care: None Practitioner: I am a practitioner with admitting privileges, knowledge of patient current condition, hospital course, and medical plan of care. Services: Services provided to patient in accordance with Admission requirements found in Title 42 Section 412.3 of the Code of Federal Regulations Patient History Date of Service: 02/24/19 Primary Care Provider: Ann Ricketts NP Reason for admission: Right facial/arm numbness History of Present Illness: 33-year-old female presented to the emergency room with right facial and right arm numbness. Symptoms began around 930 this morning. She reported a mild frontal headache. Patient denied any other symptoms including slurred speech, weakness, blurry vision, chest pain or shortness of breath. Patient has not had symptoms like this before. Patient denies any history of migraine headaches. She does report some headache from time to time mainly to the orbital region. In the ER patient was evaluated. Patient was worked up for stroke protocol. This included CT head which was unremarkable. Due to her symptoms and onset of action, patient was given tPA. ER discuss case with neurology. Initial CBC, BMP unremarkable. Urinalysis unremarkable. Patient was admitted for further evaluation. When I saw the patient, symptoms had resolved. Brain MRI unremarkable for CVA. Chest x-ray unremarkable. Patient with underlying depression, anxiety. Patient stable this time. Allergies amoxicillin Allergy (Unverified 07/04/16 01:57) Unknown ciprofloxacin [From Cipro] Allergy (Unverified 07/04/16 01:57) Unknown Penicillins Allergy (Unverified 01/24/18 22:06) Unknown sulfamethoxazole [From Bactrim] Allergy (Unverified 07/04/16 01:57) Unknown trimethoprim [From Bactrim] Allergy (Unverified 07/04/16 01:57) Unknown Home medications list reviewed: Yes - Past Medical/Surgical History Diabetic: No -: Depression with anxiety -: Right knee surgery -: Hysterectomy Psychosocial/ Personal History: Patient is going through a divorce. She has 2 children. 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 - Family History Family History: Reviewed- Non-Contributory - Social History Smoking Status: Light Tobacco smoker (1-9 cigarettes/day) Smoking therapy provided: Yes Patient receptive to therapy: Yes Alcohol use: Yes CD- Drugs: No Caffeine use: Yes Place of Residence: Home Review of Systems General: As per HPI Eyes: Unremarkable ENT: Unremarkable Respiratory: Unremarkable Cardiovascular: Unremarkable Gastrointestinal: Unremarkable Genitourinary: Unremarkable Musculoskeletal: As per HPI Integumentary: Unremarkable Neurological: Numbness, As per HPI Lymphatics: Unremarkable Physical Examination - Physical Exam General: Alert, In no apparent distress, Oriented x3, Cooperative HEENT: Atraumatic, Normocephalic, PERRLA, Mucous membr. moist/pink, EOMI Neck: Supple, No Thyromegaly Respiratory: Clear to auscultation bilaterally, Normal air movement Cardiovascular: Normal pulses, Regular rate/rhythm Gastrointestinal: Normal bowel sounds, Soft and benign, Non-distended, No tenderness, No masses, No rebound, No guarding Musculoskeletal: No erythema, No tenderness, No warmth Integumentary: No rashes, No tenderness/swelling, No erythema, No warmth, No cyanosis Neurological: Normal speech, Normal strength at 5/5 x4 extr, Normal tone, Sensation intact, Cranial nerves 3-12 intact, Normal affect - Studies Laboratory Data (last 24 hrs) 02/24/19 12:04: PT 12.4, INR 1.05, APTT 32.6 02/24/19 12:04: WBC 6.1, Hgb 13.7, Hct 39.4, Plt Count 299 02/24/19 12:04: Sodium 141, Potassium 3.6, BUN 11, Creatinine 0.82, Glucose 92 Assessment and Plan - Plan Impression: Right facial weakness/right arm weakness suspect TIA versus complicated migraine headache Depression with anxiety Plan: Right facial weakness/right arm weakness suspect TIA versus complicated migraine headache: Due to the onset of symptoms and presentation patient was given tPA in the emergency room. So far MRI brain unremarkable. Will continue CVA workup including echocardiogram and carotid Doppler. Symptoms have resolved. Will continue with aspirin, Plavix, folic acid. Will provide DVT prophylaxis was compression stockings. Neurology has been consulted. If workup unremarkable anticipate discharge within 24 hr. Will discuss with Neurology. Await recommendations. Depression with anxiety: Continue with her medication. Discharge Plan: Home Plan to discharge in: 24 Hours - Advance Directives Does patient have a Living Will: No Does patient have a Durable POA for Healthcare: No - Code Status/Comfort Care Code Status Assessed: Yes (Patient is full code.) Time Spent Managing Pts Care (In Minutes): 55
[2019-02-24] MEDS ORDERED: ONDANSETRON 4 MG/2 ML VIAL IV PRN (21:11)
[2019-02-24] MEDS ORDERED: ATORVASTATIN 40 MG TAB PO SCH (21:11)
[2019-02-24] MEDS: ACETAMINOPHEN 500 MG TAB PO PRN (22:18)
[2019-02-24] MEDS: NA CHLORIDE 0.9% 1,000 ML IV SCH (22:18)
[2019-02-24] MEDS: GABAPENTIN 300 MG CAP PO SCH (22:21)
[2019-02-25 02:18] VITALS: BMI 25.6
[2019-02-25 04:28] LABS: Absolute Lymphocytes (CBC) 1.4 K/uL (0.7-4.9); Absolute Monocytes 0.4 K/uL (0.1-1.3); Absolute Neutrophil 3.6 K/uL (1.8-8.0); Basophils % 0.6 % (0-1.3); Eosinophils % 1.2 % (0-4.4); Lymphocytes % 24.6 % (15.3-44.8); MPV 7.9 fL (7.6-11.3); Monocytes % 7.1 % (3.3-12.3); RBC Red Blood Cell Count 4.05 M/uL (3.86-4.86)
[2019-02-25 04:49] LABS: BUN Blood Urea Nitrogen 11 mg/dL (7-18); Bicarbonate 28 mmol/L (21-32); Glucose Level 78 mg/dL (74-106); HDL Cholesterol 40 mg/dL (40-60); LDL Cholesterol, Calculated 78 (<130); Magnesium 2.4 mg/dL (1.8-2.4); Potassium 3.9 mmol/L (3.5-5.1); Sodium Level 143 mmol/L (136-145)
--- NOTE | 2019-02-25 07:39 | RAD REPORT ---
EXAM DESCRIPTION: USCarotid Artery Bilateral02/24/2019 9:40 pm CLINICAL HISTORY: Numbness COMPARISON: February 24, 2019 MRA neck FINDINGS: The velocity of the right internal carotid artery equals 83 cm/sec. The right ICA/CCA rati o 1 The velocity of the left internal carotid artery equals 86 cm/sec. The left ICA/CCA ratio 1.1 Plaque within the carotid arteries not present The vertebral arteries demonstrate antegrade flow IMPRESSION: Unremarkable exam NASCET criteria used. Mild 0-49% stenosis Moderate 50-69% stenosis Severe 70-99% stenosis
[2019-02-25] MEDS: NA CHLORIDE 0.9% 1,000 ML IV SCH (08:48)
[2019-02-25] MEDS: GABAPENTIN 300 MG CAP PO SCH (08:49)
[2019-02-25] MEDS ORDERED: FOLIC ACID 1 MG TABLET PO SCH (09:00)
[2019-02-25] MEDS ORDERED: ASPIRIN EC 81 MG TAB PO SCH (09:00)
[2019-02-25] MEDS ORDERED: POTASSIUM 25 MEQ EFFERV TAB PO ONE (09:00)
[2019-02-25] MEDS ORDERED: ESCITALOPRAM 20 MG TAB PO SCH (09:00)
--- NOTE | 2019-02-25 09:16 | P.DS ---
Admission Date: 02/25/19 Discharge Date: 02/25/19 Primary Care Provider: Ann Ricketts NP Disposition: ROUTINE DISCHARGE Discharge Condition: GOOD Reason for Admission: Right facial/arm numbness Consultations: Neurology-Dr. Jean-Baptiste Procedures: MRI Brain: FINDINGS: No intracranial hemorrhage, hydrocephalus, or extra-axial fluid collection. No edema or shift of midline structures. No intracranial mass. DWI is negative for acute CVA. The midline structures are normally formed. Mastoid air cells and paranasal sinuses are clear. Post-contrast images show no abnormal enhancement to suggest tumor or infection. IMPRESSION: No acute or concerning intracranial abnormalities. No pathologic post-contrast enhancement suspected. MRA Brain: COMPARISON: Ct Stroke Brain Wo Cont dated 02/24/2019 FINDINGS: 3D noncontrast [id number] MR angiography of the [place] was performed. No aneurysm, flow-limiting stenosis or vascular malformation is seen. origin of the left posterior communicating artery noted, normal variant. Forward flow seen in codominant vertebral arteries. The visualized dural venous sinuses appear patent. IMPRESSION: No significant flow abnormality of the [place] is identified. MRA Neck: FINDINGS: Contrast enhance 2D [id number] MR angiography of the neck vessels was performed. A left aortic arch is noted with normal branching pattern. Widely patent common carotid arteries and subclavian arteries are seen bilaterally. Both internal carotid arteries are normal in size and signal without evidence of flow abnormality. Antegrade flow is seen in codominant vertebral arteries. IMPRESSION: No significant flow abnormality is seen in the neck vessels. Carotid doppler: FINDINGS: The velocity of the right internal carotid artery equals 83 cm/sec. The right ICA/CCA ratio 1 The velocity of the left internal carotid artery equals 86 cm/sec. The left ICA/ CCA ratio 1.1 Plaque within the carotid arteries not present The vertebral arteries demonstrate antegrade flow IMPRESSION: Unremarkable exam ECHO: Results pending at discharge Medical problem list: Right facial weakness/right arm weakness likely related to TIA versus complicated migraine headache Depression with anxiety Brief History of Present Illness: 33-year-old female presented to the emergency room with right facial and right arm numbness. Symptoms began around 930 on the morning of 02/24/19. She reported a mild frontal headache. Patient denied any other symptoms including slurred speech, weakness, blurry vision, chest pain or shortness of breath. Patient has not had symptoms like this before. Patient denies any history of migraine headaches. She does report some headache from time to time mainly to the orbital region. In the ER patient was evaluated. Patient was worked up for stroke protocol. This included CT head which was unremarkable. Due to her symptoms and onset of action, patient was given tPA. ER discuss case with neurology. Initial CBC, BMP unremarkable. Urinalysis unremarkable. Patient was admitted for further evaluation. When I saw the patient, symptoms had resolved. Brain MRI unremarkable for CVA. Chest x-ray unremarkable. Patient with underlying depression, anxiety. Patient stable this time. Hospital Course: Patient presented with right facial and arm weakness. The patient was evaluated in the emergency room. Due to the symptoms and onset, the patient was given tPA in the emergency room. The case was further discussed with tele neurology and ER. Initial evaluation of CT head was unremarkable. The patient was observed overnight. MRI brain, MRA brain/neck, and carotid Doppler was unremarkable. LDL was at 78. Blood pressures remained stable. Symptoms resolved prior to admission. No further symptoms have redeveloped. No evidence of bleeding, anemia noted. Case discussed further with Neurology. Patient likely with TIA versus complicated migraine headache. It is difficult to determine the true etiology. Due to the symptoms, patient will continue with aspirin 81 mg daily and folic acid 1 mg daily. Aspirin may be initiated tomorrow. No need for statin medication at this time as discussed with Neurology. Will recommend to start omega-3 daily 1000 mg daily instead. Recommend to follow up with neurology in 1-2 weeks to follow up this hospitalization and to continue her care. Further workup may be required. If symptoms redevelop she is to return to the hospital. Patient with depression and anxiety. Patient may continue with her current medications-Lexapro 10 mg daily and gabapentin 300 mg 1 pill 3 times a day. Vital Signs/Physical Exam: Temp Pulse Resp BP Pulse Ox 97.5 F 63 17 116/67 97 02/25/19 08:00 02/25/19 08:00 02/25/19 08:00 02/25/19 08:00 02/25/19 08:00 General: Alert, In no apparent distress, Oriented x3, Cooperative HEENT: Atraumatic Neck: Supple Respiratory: Clear to auscultation bilaterally, Normal air movement Cardiovascular: Normal pulses, Regular rate/rhythm Gastrointestinal: Normal bowel sounds, Soft and benign, Non-distended, No tenderness, No masses, No rebound, No guarding Musculoskeletal: No erythema, No tenderness, No warmth Integumentary: No tenderness/swelling, No erythema, No warmth, No cyanosis Neurological: Normal speech, Normal strength at 5/5 x4 extr, Normal tone, Normal affect Laboratory Data at Discharge: WBC 5.5 K/uL (4.3-10.9) 02/25/19 03:39 Hgb 12.8 g/dL (12.0-15.0) 02/25/19 03:39 Hct 37.0 % (36.0-45.0) 02/25/19 03:39 Plt Count 225 K/uL (152-406) D 02/25/19 03:39 PT 12.4 SECONDS (9.5-12.5) 02/24/19 12:04 INR 1.05 02/24/19 12:04 APTT 32.6 SECONDS (24.3-36.9) 02/24/19 12:04 Sodium 143 mmol/L (136-145) 02/25/19 03:39 Potassium 3.9 mmol/L (3.5-5.1) 02/25/19 03:39 BUN 11 mg/dL (7-18) 02/25/19 03:39 Creatinine 0.65 mg/dL (0.55-1.3) 02/25/19 03:39 Glucose 78 mg/dL (74-106) 02/25/19 03:39 Magnesium 2.4 mg/dL (1.8-2.4) 02/25/19 03:39 Triglycerides 90 mg/dL (<150) 02/25/19 03:39 Cholesterol 136 mg/dL (<200) 02/25/19 03:39 HDL Cholesterol 40 mg/dL (40-60) 02/25/19 03:39 Cholesterol/HDL Ratio 3.40 02/25/19 03:39 Home Medications: Aspirin [Aspirin EC 81 MG] 81 mg PO DAILY #90 tablet. 02/25/19 Escitalopram [Lexapro*] 10 mg PO DAILY 02/25/19 Folic Acid 1 mg PO DAILY #90 tablet 02/25/19 Gabapentin [Neurontin*] 300 mg PO TID 02/25/19 [place]-3 Fatty Acids [Fish Oil Concentrate] 1,000 mg PO DAILY #90 capsule New Medications: Aspirin [Aspirin EC 81 MG] 81 mg PO DAILY #90 tablet. Folic Acid 1 mg PO DAILY #90 tablet [place]-3 Fatty Acids [Fish Oil Concentrate] 1,000 mg PO DAILY #90 capsule Patient Discharge Instructions: 1. Recommend a follow up with her PCP within 1 week to follow up this hospitalization. 2. Patient presented with right facial and arm weakness. The patient was evaluated in the emergency room. Due to the symptoms and onset, the patient was given tPA in the emergency room. The case was further discussed with tele neurology and ER. Initial evaluation of CT head was unremarkable. The patient was observed overnight. MRI brain, MRA brain/neck, and carotid Doppler was unremarkable. LDL was at 78. Blood pressures remained stable. Symptoms resolved prior to admission. No further symptoms have redeveloped. No evidence of bleeding, anemia noted. Case discussed further with Neurology. Patient likely with TIA versus complicated migraine headache. It is difficult to determine the true etiology. Due to the symptoms, patient will continue with aspirin 81 mg daily and folic acid 1 mg daily. Aspirin may be initiated tomorrow. No need for statin medication at this time as discussed with Neurology. Will recommend to start omega-3 daily 1000 mg daily instead. Recommend to follow up with neurology in 1-2 weeks to follow up this hospitalization and to continue her care. Further workup may be required. If symptoms redevelop she is to return to the hospital for evaluation. 3. Patient with depression and anxiety. Patient may continue with her current medications-Lexapro 10 mg daily and gabapentin 300 mg 1 pill 3 times a day. Diet: AHA Activity: Ad lilian Time spent managing pt's care (in minutes): 55
[2019-02-25 10:57] VITALS: O2SAT 97
[2019-02-25] MEDS: ACETAMINOPHEN 500 MG TAB PO PRN (13:03)
--- NOTE | 2019-02-25 15:52 | RAD REPORT ---
EXAM DESCRIPTION: CT - Head Brain Wo Cont - 02/25/2019 2:42 pm CLINICAL HISTORY: Right arm weakness and numbness COMPARISON: CT February 24, MRI February 24 TECHNIQUE: Axial 5 mm thick images of the head were obtained without IV contrast. All CT scans are performed using dose optimization technique as appropriate and may include automated exposure control or mA/KV adjustment according to patient size. FINDINGS: No intracranial hemorrhage, mass, edema or shift of mid-line structures. No cortical edema or sulcal effacement. No acute cortical based infarction identifiable. No abnormal extra-axial fluid collections. Ventricles are normal. Intracranial findings are not clearly different from comparison. Mastoid air cells and visualized portions of the paranasal sinuses are clear. No acute bony findings. IMPRESSION: Negative non-contrast CT head examination for new or acute finding.
[2019-02-25 17:04] VITALS: BP 94/55; TEMP 97.5
--- NOTE | 2019-02-25 22:40 | CON ---
Reason For Consultation: Consultation called because of possible stroke. History Of Present Illness: Ms. Salcedo is a 33-year-old right-handed patient who comes in [facility] Emergency Room on 02/24/2019 with right face and arm numbness. She said there was a mil d frontal headache associated with the symptoms that began around 9:30 yesterday morning that is 24 of February. She did not have associated features such as nausea, vomiting, light or sound hypersensitiv ity, and no chest pain, no shortness of breath, no abdominal pain and incoordination or other compone nts. Head CT scan was negative. She was considered to be a candidate for tissue plasminogen activat or and actually did receive tPA after consultation with Neurology. She said she actually went to [facility] and when she woke up she noticed that the symptoms in the arms were gone. She felt slight unusual sensation in the right face, but that was mostly resolved. She did have a brain MRI done without an d with contrast stroke protocol, which showed no significant abnormalities within the brain, no acute stroke, and the magnetic resonance angiogram also showed no aneurysms, no abnormalities within the h ead. MRA of the neck identified no abnormalities in the neck vessels. Subsequently, today about les s than 24 hours after she came into the hospital. She reports some more numbness that is localized t o the right lateral arm. There is no facial involvement and she had did have a repeat head CT scan w hich showed no abnormalities, no hemorrhagic changes identified. She was placed on a small aspirin 8 1 mg daily and low dosage of statin, Lipitor 40 mg at bedtime along with folate 1 mg daily. Continue d on gabapentin 900 mg 3 times daily, again along with the aspirin 81 mg daily. She did have the rest of her stroke workup which included a carotid artery ultrasound that was unrema rkable and her electrocardiogram showed normal sinus rhythm with low-voltage QRS; that was not change d from a previous electrocardiogram 2 years ago. Past Medical History: As indicated, including depression and anxiety. Past Surgical History: Right knee surgery and hysterectomy. Social History: The patient is going through a divorce and has 2 children and has a moderate degree of stress. Family History: Noncontributory. Social History: She does vaping artificial cigarettes but did smoke up to 9 cigarettes a day in the past and says she did receive therapy to quit smoking and occasionally drinks alcohol and uses caffei ne. Allergies: AMOXICILLIN, CIPROFLOXACIN, SULFAMETHOXAZOLE, TRIMETHOPRIM. Review of Systems: She denies any recent fevers or chills, nausea, vomiting, myalgias, arthralgias, headaches, weight ch nghia, rash. Psychiatric complaints are active. No gastrointestinal or genitourinary active issues. Physical Examination: Vital Signs: Blood pressure 116/67, pulse 63, respiratory rate 16, temperature 97.5, oxygen saturati on 97% on room air. Weight 144 pounds, height 5 feet 3 inches, BMI 25.6. General: Ms. Salcedo is resting in bed. She is in no acute distress. HEENT: She is normocephalic, atraumatic. Sclerae anicteric. Oropharynx is pink and moist. Neck: Supple. Chest: Clear. Heart: Regular. Extremities: Show no edema, cyanosis, or clubbing. Neurologic: She does report some dysesthesia and simultaneously some numbness in the right V1, V2, a nd V3 distributions. She denies any sensory asymmetry in the neck. Otherwise intact cranial nerves 2 through 12. On motor examination, she has full strength proximally and distally in the upper and l ower extremities at 5/5. Sensory exam, she does report some dysesthesia along with decreased sensory responses to light touch and temperature in the right arm, forearm, and hand compared to the left si de. Normal sensory responses in the trunk bilaterally and in both legs bilaterally. Coordination in tact in upper and lower extremities. Reflexes are 2+ in upper and lower extremities and symmetric. Gait shows good stance, right arm swing. Laboratory Studies: Complete blood count with differential is completely normal. Coagulation panel is normal. Basic metabolic panel shows mildly elevated chloride of 109, upto 111 on a repeat; calciu m slightly low on repeat of 8.1, initially was normal at 8.5; magnesium normal at 2.4; and LDL choles terol 78; HDL cholesterol 40; triglycerides 90; total cholesterol 136. Thyroid-stimulating hormone o f 3.2, free T4 of 1.12. Urinalysis is negative. Assessment: Ms. Salcedo is a 33-year-old patient with possible history of migraine, who has received t issue plasminogen activator for a possible transient ischemic attack. The patient is currently being treated for TIA and has received tPA and should continue in that manner that is with aspirin, folic acid, and low-dose statin. She was instructed to hydrate with 8 to 10 glasses of water daily; cut ba ck the use of caffeinated beverages; stop smoking cigarettes; engage in regular aerobic exercise; and decrease intake of red meat, organ meat, butter or milk cheese, eggs; increase intake of nuts, grain s, fruits, and vegetables. Plan: After discharge, she will follow up in Dr. Jean-Baptiste's clinic in 1 month and may consider medic ations for migraine prophylaxis. At that point, may include beta wendy, propranolol, as needed and may also use Cambia as needed for abortive headache treatment. She may be discharged home at this time. Please note that she actually did have in the past a right rotator cuff injury, which may be a triggering component for some of the symptoms in the right arm co mpared to the left side. However, that will not explain the face and arm simultaneous changes as the patient noted. GINGER/NIDHI Voice ID: [id number] Report ID: [id number]
--- NOTE | 2019-02-26 08:28 | ECHO ---
HEIGHT: 5 ft 3 in WEIGHT: 144 lb 9.6 oz DATE OF STUDY: 02/25/[address]: Jasson Nolen DO 2-DIMENSIONAL: YES M.MODE: YES DOPPLER: YES COLOR FLOW: YES TDS: NO PORTABLE: NO DEFINITY: NO BUBBLE STUDY: NO DIAGNOSIS: RIGHT FACIAL, ARM NUMBNESS CARDIAC HISTORY: CATHERIZATION: NO SURGERY: NO PROSTHETIC VALVE: NO PACEMAKER: NO MEASUREMENTS (cm) DIASTOLIC (NORMALS) SYSTOLIC (NORMALS) IVSd 0.9 (0.6-1.2) LA Diam 2.6 (1.9-4.0) LVEF 82% LVIDd 4.6 (3.5-5.7) LVIDs 2.3 (2.0-3.5) %FS 51% LVPWd 1.0 (0.6-1.2) Ao Diam 2.9 (2.0-3.7) 2 DIMENSIONAL ASSESSMENT: RIGHT ATRIUM: NORMAL LEFT ATRIUM: NORMAL RIGHT VENTRICLE: NORMAL LEFT VENTRICLE: NORMAL TRICUSPID VALVE: NORMAL MITRAL VALVE: NORMAL PULMONIC VALVE: NORMAL AORTIC VALVE: NORMAL PERICARDIAL EFFUSION: NONE AORTIC ROOT: NORMAL LEFT VENTRICULAR WALL MOTION: NORMAL DOPPLER/COLOR FLOW: PHYSIOLOGIC TRICUSPID REGURGITATION. NORMAL RIGHT VENTRICULAR SYSTOLIC PRESSURE. TRACE MITRAL REGURGITATION. COMMENTS: NORMAL 2D ECHOCARDIOGRAM. TRACE MITRAL REGURGITATION. OTHERWISE NORMAL DOPPLER. TECHNOLOGIST: Sharon GODOY
== END 2019-02-25 18:31 | disposition home or self-care (01) | DRG 63 ==
LOC: ER 11:49 → ERHOLD 17:02 → 4TH 19:38 → OBSVTOIN 02-25 08:55
PROVIDERS: ADMIT Family Medicine; ATTEND Family Medicine
DX: G45.9 Transient cerebral ischemic attack, unspecified (principal); G43.109 Migraine with aura, not intractable, without status migrainosus; F41.8 Other specified anxiety disorders; Z88.0 Allergy status to penicillin; Z88.2 Allergy status to sulfonamides; F17.210 Nicotine dependence, cigarettes, uncomplicated
CPT/HCPCS: 36415; 70450; 70544; 70549; 70553; 71045; 80048; 80061; 81003; 81025; 82962; 83735; 84439; 84443; 85025; 85610; 85730; 92977; 93005; 93306; 93880; 96374; 96375; 99291; 99292; A9577; G0378; J2175; J2405; J2765; J2997; J3475; J7030

== ENCOUNTER 2019-08-11 06:20 | Emergency (ER) | payer SELFPAY ==
[2019-08-11] MEDS ORDERED: ONDANSETRON 4 MG/2 ML VIAL ONE (07:12)
[2019-08-11] MEDS ORDERED: FENTANYL CITR 100 MCG/2 ML ONE (07:12)
[2019-08-11] MEDS ORDERED: NA CHLORIDE 0.9% 1,000 ML ONE (07:12)
[2019-08-11 07:27] LABS: Absolute Lymphocytes (CBC) 0.8 K/uL (0.7-4.9); Basophils % 0.6 % (0-1.3); Hematocrit 38.3 % (36.0-45.0); Lymphocytes % 13.6 % (15.3-44.8); MPV 7.7 fL (7.6-11.3); RBC Red Blood Cell Count 4.24 M/uL (3.86-4.86)
[2019-08-11 07:31] LABS: Protime INR 1.04
[2019-08-11 07:48] LABS: ALT/SGPT 36 U/L (12-78); AST/SGOT 25 U/L (15-37); Albumin 3.8 g/dL (3.4-5.0); Alkaline Phosphatase 67 U/L (45-117); BUN Blood Urea Nitrogen 11 mg/dL (7-18); Bicarbonate 26 mmol/L (21-32); Bilirubin Direct < 0.1 mg/dL (0-0.2); Bilirubin Total 0.4 mg/dL (0.2-1.0); Glucose Level 89 mg/dL (74-106); Potassium 4.1 mmol/L (3.5-5.1); Protein, Total 6.9 g/dL (6.4-8.2); Sodium Level 140 mmol/L (136-145)
[2019-08-11] MEDS ORDERED: MORPHINE 4 MG/ML SYR ONE (08:44)
[2019-08-11 09:07] LABS: Urine Blood NEGATIVE (NEG); Urine Glucose NEGATIVE (NEG); Urine Protein NEGATIVE (NEG); Urine Specific Gravity 1.015 (1.005-1.030)
[2019-08-11 10:26] LABS: Barbiturates NEGATIVE (NEGATIVE); Benzodiazepines NEGATIVE (NEGATIVE); Cocaine NEGATIVE (NEGATIVE); METHAMPHETAM NEGATIVE (NEGATIVE); Methadone NEGATIVE (NEGATIVE); Opiates NEGATIVE (NEGATIVE); Phencyclidine NEGATIVE (NEGATIVE); THC Cannibis NEGATIVE (NEGATIVE)
--- NOTE | 2019-08-11 10:26 | RAD REPORT ---
EXAM DESCRIPTION: MRI - Brain Wo Cont - 08/11/2019 10:00 am CLINICAL HISTORY: Syncope COMPARISON: February 2019 TECHNIQUE: Axial, sagittal, and coronal magnetic images of the brain were obtained. Contrast was not requested FINDINGS: No abnormal signal is present within the brain. Diffusion-weighted/ADC mapping does not reveal evidence of acute infarction. The ventricles are normal caliber. An extra-axial fluid collection is not present The sinuses and mastoids are clear. IMPRESSION: Unremarkable unenhanced brain MRI
--- NOTE | 2019-08-11 10:45 | RAD REPORT ---
EXAM DESCRIPTION: CT HEAD AND CERVICAL SPINE WITHOUT CONTRAST CLINICAL HISTORY: PAIN COMPARISON: None. TECHNIQUE: Axial [address] imaging of the brain. Axial [address] imaging of the ce rvical spine. Reformatted coronal and sagittal images obtained. This examination was performed according to our departmental dose optimization program, which include s automated exposure control, adjustment of the mA and/or kV according to patient size and/or use of iterative reconstruction technique. FINDINGS: CT head: Normal ventricle size and contour. Extra-axial fluid spaces appear normal. No intracranial hemorrhage . No mass or midline shift. No edema. Woodson-white matter differentiation is maintained. No hyperdense vessel or acute large territorial infarction. Normal cerebellum and vermis. Fourth ventricle is midline. Prepontine cisterns are not effaced. Ana l sella contents. Normal appearance of the intraorbital contents. There is left facial subcutaneous edema. Clear parana margot sinuses. Mastoid air cells are clear bilaterally. Intact skull base and calvarium. CT cervical spine: Normal cervical lordosis. Vertebral body and intervertebral disc space height are within normal limit s. No subluxation. No prevertebral edema. Intact odontoid process and lateral masses. No fracture wit hin the posterior elements. The parapharyngeal soft tissues and mucosal spaces appear normal. Normal epiglottis and included ana nx. Normal imaged thyroid. Clear lung apices. Upper ribs appear intact. IMPRESSION: 1. Negative CT brain. 2. No acute cervical spine fracture or subluxation. Electronically signed by: Rupinder Ceja DO 08/11/2019 7:22 AM CDT Due to temporary technical issues with the PACS/Fluency reporting system, reports are being signed by the in house radiologist as a courtesy to ensure prompt reporting. The interpreting radiologist is f ully responsible for the content of the report.
--- NOTE | 2019-08-11 10:45 | EDPHYS ---
Physician Documentation [facility] Name: Angelica Salcedo Age: 34 yrs Sex: Female : 1985 Arrival Date: 08/11/2019 Time: 06:22 Bed 5 Private MD: ED Physician Hieu Edmonds HPI: 08/11 07:31 This 34 yrs old Female presents to ER via EMS with complaints of Neck pain. pm1 07:31 The patient or guardian complains of pain. The symptoms are located diffusely. Onset: pm1 The symptoms/episode began/occurred just prior to arrival. Context: The problem was sustained at home, The neck injury/problem resulted from a fall, from standing position. Associated signs and symptoms: Pertinent positives: dizziness and room spinning sensation prior to passing out, Pertinent negatives: fever, bladder incontinence, bowel incontinence, numbness, tingling, vomiting, The patient denies any alcohol use. The pain does not radiate. Modifying factors: The symptoms are alleviated by nothing. Severity of symptoms: in the emergency department the symptoms are unchanged. Patient was getting ready for work and she started feeling dizzy. Room spinning sensation. Next thing she recalls is waking up on the floor with ex- asking her what happened to the face. Patient got up went to the restroom and was given some juice which appeared to make her feel better according to the ex-. He believes that she hit the plunger next to the toilet bowl that caused her left black eye. Arrived with c-collar in place. 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 - Social history:: Smoking status: Patient uses tobacco products, vape. - Ebola Screening: : No symptoms or risks identified at this time. ROS: 07:31 Constitutional: Negative for fever, chills, and weight loss. pm1 07:31 ENT: Negative for injury, pain, and discharge. 07:31 Cardiovascular: Negative for chest pain, palpitations, and edema, Respiratory: Negative for shortness of breath, cough, wheezing, and pleuritic chest pain, Abdomen/GI: Negative for abdominal pain, nausea, vomiting, diarrhea, and constipation, Back: Negative for injury and pain, : Negative for injury, bleeding, discharge, and swelling, MS/Extremity: Negative for injury and deformity, Skin: Negative for injury, rash, and discoloration. 07:31 Eyes: Positive for pain, swelling, of the left eye, Negative for blurry vision. 07:31 Neck: Positive for pain with movement, pain at rest. 07:31 Neuro: Positive for dizziness, syncope, Negative for altered mental status, numbness, tingling, weakness. Exam: 07:39 Constitutional: This is a well developed, well nourished patient who is awake, alert, pm1 and in no acute distress. 07:39 Head/face: Noted is no obvious of injury or deformity except contusion, of the left eye. Vital Signs: 06:22 BP 104 / 84; Pulse 70; Resp 18; Temp 97.4(O); Pulse Ox 100% on R/A; Weight 58.97 kg ak1 (R); Height 5 ft. 3 in. (160.02 cm) (R); Pain 7/10; 08:19 BP 113 / 80; Pulse 62; Resp 17; Pulse Ox 100% on R/A; tw2 09:26 BP 136 / 82; Pulse 71; Resp 17; Pulse Ox 100% on R/A; tw2 11:00 BP 112 / 77; Pulse 70; Resp 17; Pulse Ox 99% on R/A; sg 06:22 Body Mass Index 23.03 (58.97 kg, 160.02 cm) ak1 MDM: 06:22 Patient medically screened. pm1 08:23 ED course: CT reports from [facility] reviewed. CT brain and cervical pm1 spine: Negative CT brain and No acute cervical fracture or subluxation. CT facial bones: Small superficial hematoma present to the left nasal bone and inferior orbit. C-collar removed from patient. 10:33 Data reviewed: vital signs. Data interpreted: Pulse oximetry: on room air is 100 %. pm1 Interpretation: normal. Counseling: I had a detailed discussion with the patient and/or guardian regarding: the historical points, exam findings, and any diagnostic results supporting the discharge/admit diagnosis, lab results, radiology results, the need for outpatient follow up, to return to the emergency department if symptoms worsen or persist or if there are any questions or concerns that arise at home. 08/11 06:25 Order name: Acetaminophen; Complete Time: 08:16 pm1 08/11 06:25 Order name: Basic Metabolic Panel; Complete Time: 08:16 pm1 08/11 06:25 Order name: CBC with Diff; Complete Time: 07:29 pm1 08/11 06:25 Order name: ETOH Level; Complete Time: 08:16 pm1 08/11 06:25 Order name: Hepatic Function; Complete Time: 08:16 pm1 08/11 06:25 Order name: PT-INR; Complete Time: 07:38 pm1 08/11 06:23 Order name: CT Head C Spine pm1 08/11 06:23 Order name: CT Facial Bones W/O Con pm1 08/11 06:25 Order name: Ptt, Activated; Complete Time: 07:38 pm1 08/11 06:25 Order name: Salicylate; Complete Time: 08:16 pm1 08/11 06:25 Order name: Urine Drug Screen; Complete Time: 10:32 pm1 08/11 08:42 Order name: Urine Dipstick--Ancillary (enter results) bd 08/11 09:11 Order name: MRI - Brain Wo Cont; Complete Time: 10:32 pm1 08/11 06:25 Order name: EKG - Nurse/Tech; Complete Time: 07:27 pm1 08/11 06:25 Order name: IV Saline Lock; Complete Time: 06:35 pm1 08/11 06:25 Order name: Labs collected and sent; Complete Time: 07:10 pm1 08/11 06:25 Order name: Urine Dipstick-Ancillary (obtain specimen); Complete Time: 08:33 pm1 Administered Medications: 07:12 Drug: NS 0.9% 1000 ml Route: IV; Rate: 1000 ml; Site: right wrist; tw2 07:12 Drug: Zofran 4 mg Route: IVP; Site: right wrist; tw2 07:51 Follow up: Response: No adverse reaction; Nausea is decreased tw2 07:14 Drug: fentaNYL (PF) 25 mcg {Note: RASS 0.} Route: IVP; Site: right wrist; tw2 08:34 Follow up: Response: No adverse reaction; Pain is unchanged, physician notified; RASS: tw2 Alert and Calm (0) 08:49 Drug: morphine 4 mg Route: IVP; Site: right forearm; tw2 09:30 Follow up: Response: No adverse reaction sg Disposition: 08/12 04:30 Co-signature as Attending Physician, Hieu Edmonds MD I agree with the assessment and tw4 plan of care. Disposition: 08/11/19 10:44 Discharged to Home. Impression: Contusion of unspecified part of head, Strain of muscle, fascia and tendon at neck level, Syncope and collapse. - Condition is Stable. - Discharge Instructions: Eye Contusion, Head Injury, Adult, Muscle Strain, Syncope. - Prescriptions for Tylenol- Codeine #3 300-30 mg Oral Tablet - take 20 tablet by ORAL route every 6 hours As needed; 30 tablet. Cyclobenzaprine 10 mg Oral Tablet - take 1 tablet by ORAL route every 8 hours As needed; 30 tablet. Diclofenac Sodium 75 mg Oral Tablet Sustained Release - take 1 tablet by ORAL route 2 times per day; 30 tablet. - Medication Reconciliation Form, Thank You Letter, Antibiotic Education, Prescription Opioid Use, Work release form, Family Work Release form. - Follow up: Emergency Department; When: As needed; Reason: Worsening of condition. Follow up: Private Physician; When: 2 - 3 days; Reason: Recheck today's complaints, Continuance of care, Re-evaluation by your physician. - Problem is new. - Symptoms have improved. Signatures: Dispatcher [employer] Baljinder Pan RN RN sg Yuli North RN RN ak1 Cameron Suh, BANK CREDIT CARD COLLECTION CLERK BANK CREDIT CARD COLLECTION CLERK pm1 Tammy Rebollar RN RN tw2 Hieu Edmonds MD MD tw4 Corrections: (The following items were deleted from the chart) 08/11 11:04 10:44 08/11/2019 10:44 Discharged to Home. Impression: Contusion of unspecified part of sg headStrain of muscle, fascia and tendon at neck level; Syncope and collapse. Condition is Stable. Forms are Work release form, Family Work Release, Medication Reconciliation Form, Thank You Letter, Antibiotic Education, Prescription Opioid Use. Follow up: Emergency Department; When: As needed; Reason: Worsening of condition. Follow up: Private Physician; When: 2 - 3 days; Reason: Recheck today's complaints, Continuance of care, Re-evaluation by your physician. Problem is new. Symptoms have improved. pm1
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
--- NOTE | 2019-08-11 10:46 | RAD REPORT ---
EXAM DESCRIPTION: CT Maxillofacial Without Intravenous Contrast CLINICAL HISTORY: Trauma. TECHNIQUE: Axial computed tomography images of the face without intravenous contrast. Sagittal and coronal reformatted images were created and reviewed. This CT exam was performed using one or more of the following dose reduction techniques: automated exposure control, adjustment of the mA and/o r kV according to patient size, and/or use of iterative reconstruction technique. COMPARISON: No relevant prior studies available. FINDINGS: Limitations: None. Bones/joints: See below. Soft tissues: Unremarkable. Orbits: Unremarkable. Sinuses: Unremarkable. No air-fluid levels. Nasal cavity/septum: There is a small superficial hematoma adjacent to the left nasal bone and i nferior orbit. IMPRESSION: 1. There is a small superficial hematoma adjacent to the left nasal bone and inferior orbit. 2. No fracture. Electronically signed by: Hui Feng MD 08/11/2019 7:20 AM CDT Due to temporary technical issues with the PACS/Fluency reporting system, reports are being signed by the in house radiologist as a courtesy to ensure prompt reporting. The interpreting radiologist is f ully responsible for the content of the report.
[2019-08-11 11:22] VITALS: O2SAT 100
[2019-08-11 11:24] VITALS: TEMP 97.4
[2019-08-11 11:25] VITALS: BP 136/82
--- NOTE | 2019-08-11 15:43 | EKG ---
Test Date: 2019-08-11 Test Time: 07:24:07 Gericare Aide: SADIQ MEASUREMENT RESULTS: Intervals: Rate: 64 AK: 154 QRSD: 74 QT: 410 QTc: 422 [place]: P: 43 AK: 154 QRS: 13 T: 31 INTERPRETIVE STATEMENTS: Normal sinus rhythm Low voltage QRS Borderline ECG Compared to ECG 02/24/2019 12:08:36 No significant changes Electronically Signed On 08-11-19 15:42:55 CDT by Jean Bella
== END 2019-08-11 11:04 | disposition home or self-care (01) ==
LOC: ER 06:20
DX: S00.93XA Contusion of unspecified part of head, initial encounter (principal); S16.1XXA Strain of muscle, fascia and tendon at neck level, initial encounter; R55 Syncope and collapse; F41.8 Other specified anxiety disorders; W01.198A Fall on same level from slipping, tripping and stumbling with subsequent striking against other object, initial encounter; Y93.9 Activity, unspecified; Y92.012 Bathroom of single-family (private) house as the place of occurrence of the external cause; Z88.0 Allergy status to penicillin; Z88.1 Allergy status to other antibiotic agents
CPT/HCPCS: 36415; 70450; 70486; 70551; 72125; 76377; 80048; 80076; 80307; 80320; 80329; 81003; 85025; 85610; 85730; 93005; 99284; J2405; J3010; J7030

== ENCOUNTER 2019-09-22 19:47 | Emergency (ER) | payer SELFPAY ==
--- OUTSIDE RECORDS SUMMARY | 2019-09-22 19:51 | XMS REPORT ---
:1985 [facility] Address [address] [place] [address] Care Team Providers Name Role Phone FRANCIS [...] Comments SODIUM (BEAKER) (test 139 meq/L 136-145 gnhv=169) POTASSIUM (BEAKER) (test 3.9 meq/L 3.5-5.1 cpdt=167) CHLORIDE (BEAKER) (test 103 meq/L 98-107 wxcn=182) CO2 (BEAKER) (test xmkp=169) 28 meq/L 22-29 BLOOD UREA NITROGEN (BEAKER) 12 mg/dL 7-21 (test spbp=864) CREATININE (BEAKER) (test 0.72 mg/dL 0.57-1.25 vmcg=316) GLUCOSE RANDOM (BEAKER) 90 mg/dL 70-105 (test gtqs=703) CALCIUM (BEAKER) (test 9.1 mg/dL 8.4-10.2 xsms=371) EGFR (BEAKER) (test 93 mL/min/1.73 sq m ESTIMATED GFR IS NOT gcsp=5057) ACCURATE CREATININE CLEARANCE IN PREDICTING GLOMERULAR FILTRATION RATE. ESTIMATED GFR IS NOT APPLICABLE FOR DIALYSIS PATIENTS. BLOOD [id number] 10:36:00 Test Item Value Reference Range Comments CULTURE (BEAKER) (test epyo=0008) No growth in 5 days BLOOD [id number] 10:35:00 Test Item Value Reference Range Comments CULTURE (BEAKER) (test epsc=4987) No growth in 5 days [id number] 07:09:00 Test Item Value Reference Range Comments MAGNESIUM (BEAKER) (test tiow=446) 2.4 mg/dL 1.6-2.6 BASIC METABOLIC [id number] 07:09:00 Test Item Value Reference Range Comments SODIUM (BEAKER) (test 141 meq/L 136-145 cwnd=260) POTASSIUM (BEAKER) (test 4.0 meq/L 3.5-5.1 xfze=934) CHLORIDE (BEAKER) (test 107 meq/L 98-107 ryhb=018) CO2 (BEAKER) (test 27 meq/L 22-29 mijj=831) BLOOD UREA NITROGEN 10 mg/dL 7-21 (BEAKER) (test vlaa=839) CREATININE (BEAKER) (test 0.72 mg/dL 0.57-1.25 yiiy=411) GLUCOSE RANDOM (BEAKER) 97 mg/dL 70-105 (test ntuo=099) CALCIUM (BEAKER) (test 9.4 mg/dL 8.4-10.2 cwel=802) EGFR (BEAKER) (test 93 mL/min/1.73 sq m ESTIMATED GFR IS NOT ahyi=8000) ACCURATE CREATININE CLEARANCE IN PREDICTING GLOMERULAR FILTRATION RATE. ESTIMATED GFR IS NOT APPLICABLE FOR DIALYSIS PATIENTS. SPUTUM CULTURE + GRAM [id number] 15:12:00 Test Item Value Reference Range Comments CULTURE (BEAKER) (test STAPHYLOCOCCUS AUREUS 2+ Staphylococcus hibs=5771) aureus Clindamycin (test code=10) Erythromycin (test code=4) Linezolid (test code=40) Nitrofurantoin (test code=23) Oxacillin (test code=14) Rifampin (test code=43) Tetracycline (test code=2) Trimethoprim + Sulfamethoxazole (test code=47) Vancomycin (test code=13) GRAM STAIN RESULT 4+ WBCs (BEAKER) (test whcy=0815) GRAM STAIN RESULT No epithelial cells (BEAKER) (test slwv=740061) GRAM STAIN RESULT No organisms seen (BEAKER) (test zyeq=527593) 2+ Normal respiratory leon presentRAD, CHEST, 1 VIEW, NON [id number] 08:10: 00Reason for exam:->coughShould this be performed at the bedside?-> YesFINAL REPORT RAD, CHEST, 1 VIEW, NON DEPT INDICATION: cough COMPARISON: August 25, 2018 FINDINGS: Portable frontal view of the chest. IMPRESSION: Support Lines: None. Lungs and pleura: Clear lungs. Costophrenic sulci are sharp. No pneumothorax.Heart and mediastinum: Unremarkable. Additional findings: None. Signed: JR Miner Robert MDReport Verified Date/Time: 08/28/2018 08:10:09 Reading Location: [address] Neuro Reading Room BASIC METABOLIC [id number] 07:34:00 Test Item Value Reference Range Comments SODIUM (BEAKER) (test 141 meq/L 136-145 phxv=536) POTASSIUM (BEAKER) (test 3.9 meq/L 3.5-5.1 nzey=897) CHLORIDE (BEAKER) (test 108 meq/L 98-107 mhvj=354) CO2 (BEAKER) (test 26 meq/L 22-29 srka=053) BLOOD UREA NITROGEN 9 mg/dL 7-21 (BEAKER) (test fhit=061) CREATININE (BEAKER) (test 0.67 mg/dL 0.57-1.25 wqjq=628) GLUCOSE RANDOM (BEAKER) 80 mg/dL 70-105 (test iuqi=070) CALCIUM (BEAKER) (test 9.0 mg/dL 8.4-10.2 yzrm=994) EGFR (BEAKER) (test 101 mL/min/1.73 sq m ESTIMATED GFR IS NOT nnlv=5368) ACCURATE CREATININE CLEARANCE IN PREDICTING GLOMERULAR FILTRATION RATE. ESTIMATED GFR IS NOT APPLICABLE FOR DIALYSIS PATIENTS. CBC W/PLT COUNT & AUTO [id number] 07:02:00 Test Item Value Reference Range Comments WHITE BLOOD CELL COUNT (BEAKER) (test qnlm=929) 5.4 K/ L 3.5-10.5 RED BLOOD CELL COUNT (BEAKER) (test cuji=690) 3.94 M/ L 3.93-5.22 HEMOGLOBIN (BEAKER) (test gweu=577) 12.2 GM/DL 11.2-15.7 HEMATOCRIT (BEAKER) (test bclj=163) 36.7 % 34.1-44.9 MEAN CORPUSCULAR VOLUME (BEAKER) (test canm=203) 93.1 fL 79.4-94.8 MEAN CORPUSCULAR HEMOGLOBIN (BEAKER) (test 31.0 pg 25.6-32.2 nlvi=428) MEAN CORPUSCULAR HEMOGLOBIN CONC (BEAKER) (test 33.2 GM/DL 32.2-35.5 uyrd=771) RED CELL DISTRIBUTION WIDTH (BEAKER) (test 12.3 % 11.7-14.4 obed=402) PLATELET COUNT (BEAKER) (test ejwq=511) 229 K/CU MM 150-450 MEAN PLATELET VOLUME (BEAKER) (test atlv=519) 9.2 fL 9.4-12.3 NUCLEATED RED BLOOD CELLS (BEAKER) (test 0 /100 WBC 0-0 xfmb=709) NEUTROPHILS RELATIVE PERCENT (BEAKER) (test 63 % rmxn=309) LYMPHOCYTES RELATIVE PERCENT (BEAKER) (test 25 % rrly=399) MONOCYTES RELATIVE PERCENT (BEAKER) (test 8 % qwww=488) EOSINOPHILS RELATIVE PERCENT (BEAKER) (test 3 % nnif=892) BASOPHILS RELATIVE PERCENT (BEAKER) (test 0 % axrv=217) NEUTROPHILS ABSOLUTE COUNT (BEAKER) (test 3.42 K/ L 1.56-6.13 bhgs=210) LYMPHOCYTES ABSOLUTE COUNT (BEAKER) (test 1.35 K/ L 1.18-3.74 gumh=196) MONOCYTES ABSOLUTE COUNT (BEAKER) (test 0.43 K/ L 0.24-0.36 krxl=490) EOSINOPHILS ABSOLUTE COUNT (BEAKER) (test 0.17 K/ L 0.04-0.36 rllo=891) BASOPHILS ABSOLUTE COUNT (BEAKER) (test 0.02 K/ L 0.01-0.08 qfga=470) IMMATURE GRANULOCYTES-RELATIVE PERCENT (BEAKER) 1 % 0-1 (test yidv=9977) POCT-GLUCOSE [id number] 07:54:00 Test Item Value Reference Range Comments POC-GLUCOSE METER (BEAKER) 115 mg/dL 70-110 TESTED AT [facility] [address] [facility] (test ynml=1497) [facility] [address] [id number] 05:27:00 Test Item Value Reference Range Comments PHOSPHORUS (BEAKER) (test edqo=510) 2.8 mg/dL 2.3-4.7 [id number] 05:27:00 Test Item Value Reference Range Comments MAGNESIUM (BEAKER) (test lrto=805) 2.0 mg/dL 1.6-2.6 BASIC METABOLIC [id number] 05:27:00 Test Item Value Reference Range Comments SODIUM (BEAKER) (test 141 meq/L 136-145 xwmy=772) POTASSIUM (BEAKER) (test 3.7 meq/L 3.5-5.1 wggo=814) CHLORIDE (BEAKER) (test 109 meq/L 98-107 pcls=489) CO2 (BEAKER) (test 25 meq/L 22-29 xvel=008) BLOOD UREA NITROGEN 8 mg/dL 7-21 (BEAKER) (test fcqr=406) CREATININE (BEAKER) (test 0.72 mg/dL 0.57-1.25 qrfo=597) GLUCOSE RANDOM (BEAKER) 92 mg/dL 70-105 (test koyx=042) CALCIUM (BEAKER) (test 8.7 mg/dL 8.4-10.2 fbpb=922) EGFR (BEAKER) (test 93 mL/min/1.73 sq m ESTIMATED GFR IS NOT rpln=5758) ACCURATE CREATININE CLEARANCE IN PREDICTING GLOMERULAR FILTRATION RATE. ESTIMATED GFR IS NOT APPLICABLE FOR DIALYSIS PATIENTS. CBC W/PLT COUNT & AUTO [id number] 05:07:00 Test Item Value Reference Range Comments WHITE BLOOD CELL COUNT (BEAKER) (test yklu=604) 6.4 K/ L 3.5-10.5 RED BLOOD CELL COUNT (BEAKER) (test dtav=683) 3.66 M/ L 3.93-5.22 HEMOGLOBIN (BEAKER) (test dmig=642) 11.1 GM/DL 11.2-15.7 HEMATOCRIT (BEAKER) (test zeyc=339) 34.0 % 34.1-44.9 MEAN CORPUSCULAR VOLUME (BEAKER) (test bgzy=827) 92.9 fL 79.4-94.8 MEAN CORPUSCULAR HEMOGLOBIN (BEAKER) (test 30.3 pg 25.6-32.2 jnvv=623) MEAN CORPUSCULAR HEMOGLOBIN CONC (BEAKER) (test 32.6 GM/DL 32.2-35.5 nujz=014) RED CELL DISTRIBUTION WIDTH (BEAKER) (test 12.5 % 11.7-14.4 yqev=933) PLATELET COUNT (BEAKER) (test tbtq=381) 206 K/CU MM 150-450 MEAN PLATELET VOLUME (BEAKER) (test sqpi=306) 9.4 fL 9.4-12.3 NUCLEATED RED BLOOD CELLS (BEAKER) (test 0 /100 WBC 0-0 iejs=173) NEUTROPHILS RELATIVE PERCENT (BEAKER) (test 78 % uvmp=272) LYMPHOCYTES RELATIVE PERCENT (BEAKER) (test 13 % jluk=083) MONOCYTES RELATIVE PERCENT (BEAKER) (test 7 % wlil=956) EOSINOPHILS RELATIVE PERCENT (BEAKER) (test 1 % tkxt=919) BASOPHILS RELATIVE PERCENT (BEAKER) (test 0 % rbgq=965) NEUTROPHILS ABSOLUTE COUNT (BEAKER) (test 5.02 K/ L 1.56-6.13 inhj=383) LYMPHOCYTES ABSOLUTE COUNT (BEAKER) (test 0.82 K/ L 1.18-3.74 xjag=162) MONOCYTES ABSOLUTE COUNT (BEAKER) (test 0.44 K/ L 0.24-0.36 avzb=648) EOSINOPHILS ABSOLUTE COUNT (BEAKER) (test 0.08 K/ L 0.04-0.36 ansr=856) BASOPHILS ABSOLUTE COUNT (BEAKER) (test 0.02 K/ L 0.01-0.08 ctrk=391) IMMATURE GRANULOCYTES-RELATIVE PERCENT (BEAKER) 1 % 0-1 (test jvwm=6718) POCT-GLUCOSE [id number] 22:21:00 Test Item Value Reference Range Comments POC-GLUCOSE METER (BEAKER) 124 mg/dL 70-110 TESTED AT [address] (test pcnl=1120) [place] [id number] POCT-GLUCOSE [id number] 18:26:00 Test Item Value Reference Range Comments POC-GLUCOSE METER (BEAKER) 141 mg/dL 70-110 TESTED AT [address] (test epds=7187) [place] [id number] POCT-GLUCOSE [id number] 12:49:00 Test Item Value Reference Range Comments POC-GLUCOSE METER (BEAKER) 169 mg/dL 70-110 TESTED AT [address] (test wkmq=9451) [place] [address] [id number] 12:31:00 Test Item Value Reference Range Comments PROCALCITONIN (BEAKER) (test uzge=2265) 0.16 ng/mL <0.05 SEPSIS RISK (ng/mL)Low: 0.05-0.50Intermediate: 0.51-2.00High: & gt;=2.01POCT-GLUCOSE [id number] 09:08:00 Test Item Value Reference Range Comments POC-GLUCOSE METER (BEAKER) 115 mg/dL 70-110 TESTED AT [facility] [address] [facility] (test aiqh=5342) [facility] [address] [id number] 04:49:00 Test Item Value Reference Range Comments PHOSPHORUS (BEAKER) (test vmlv=893) 3.4 mg/dL 2.3-4.7 [id number] 04:49:00 Test Item Value Reference Range Comments MAGNESIUM (BEAKER) (test ykzo=243) 2.2 mg/dL 1.6-2.6 BASIC METABOLIC [id number] 04:49:00 Test Item Value Reference Range Comments SODIUM (BEAKER) (test 139 meq/L 136-145 vmho=255) POTASSIUM (BEAKER) (test 3.7 meq/L 3.5-5.1 vfnw=404) CHLORIDE (BEAKER) (test 109 meq/L 98-107 hopn=831) CO2 (BEAKER) (test 23 meq/L 22-29 ozkf=603) BLOOD UREA NITROGEN 6 mg/dL 7-21 (BEAKER) (test pahw=299) CREATININE (BEAKER) (test 0.79 mg/dL 0.57-1.25 vora=662) GLUCOSE RANDOM (BEAKER) 117 mg/dL 70-105 (test cxzk=182) CALCIUM (BEAKER) (test 8.7 mg/dL 8.4-10.2 mucg=474) EGFR (BEAKER) (test 83 mL/min/1.73 sq m ESTIMATED GFR IS NOT itwp=1790) ACCURATE CREATININE CLEARANCE IN PREDICTING GLOMERULAR FILTRATION RATE. ESTIMATED GFR IS NOT APPLICABLE FOR DIALYSIS PATIENTS. CBC W/PLT COUNT & AUTO [id number] 04:30:00 Test Item Value Reference Range Comments WHITE BLOOD CELL COUNT (BEAKER) (test orfr=457) 12.8 K/ L 3.5-10.5 RED BLOOD CELL COUNT (BEAKER) (test yfzi=284) 3.53 M/ L 3.93-5.22 HEMOGLOBIN (BEAKER) (test vseq=604) 11.1 GM/DL 11.2-15.7 HEMATOCRIT (BEAKER) (test agjx=820) 32.8 % 34.1-44.9 MEAN CORPUSCULAR VOLUME (BEAKER) (test kiyv=158) 92.9 fL 79.4-94.8 MEAN CORPUSCULAR HEMOGLOBIN (BEAKER) (test 31.4 pg 25.6-32.2 zcmd=189) MEAN CORPUSCULAR HEMOGLOBIN CONC (BEAKER) (test 33.8 GM/DL 32.2-35.5 tnkn=619) RED CELL DISTRIBUTION WIDTH (BEAKER) (test 12.4 % 11.7-14.4 adrw=899) PLATELET COUNT (BEAKER) (test uqap=966) 179 K/CU MM 150-450 MEAN PLATELET VOLUME (BEAKER) (test hwxi=869) 9.2 fL 9.4-12.3 NUCLEATED RED BLOOD CELLS (BEAKER) (test 0 /100 WBC 0-0 furl=529) NEUTROPHILS RELATIVE PERCENT (BEAKER) (test 87 % mngn=796) LYMPHOCYTES RELATIVE PERCENT (BEAKER) (test 7 % rrao=740) MONOCYTES RELATIVE PERCENT (BEAKER) (test 4 % ucsn=771) EOSINOPHILS RELATIVE PERCENT (BEAKER) (test 1 % yimc=435) BASOPHILS RELATIVE PERCENT (BEAKER) (test 0 % hoyl=283) NEUTROPHILS ABSOLUTE COUNT (BEAKER) (test 11.15 K/ L 1.56-6.13 odns=976) LYMPHOCYTES ABSOLUTE COUNT (BEAKER) (test 0.92 K/ L 1.18-3.74 qpyo=721) MONOCYTES ABSOLUTE COUNT (BEAKER) (test 0.54 K/ L 0.24-0.36 wkfm=486) EOSINOPHILS ABSOLUTE COUNT (BEAKER) (test 0.09 K/ L 0.04-0.36 bgxh=721) BASOPHILS ABSOLUTE COUNT (BEAKER) (test 0.03 K/ L 0.01-0.08 ffjw=214) IMMATURE GRANULOCYTES-RELATIVE PERCENT (BEAKER) 1 % 0-1 (test ntkk=0060) POCT-GLUCOSE [id number] 23:47:00 Test Item Value Reference Range Comments POC-GLUCOSE METER (BEAKER) 120 mg/dL 70-110 TESTED AT [address] (test jbou=1003) [place] [address] RAD, CHEST, 1 VIEW, NON [id number] 23:16:00Reason for exam:-> reintubationShould this be performed [...] Verified Date/Time: 08/25/2018 23:16: 53 Reading Location: [place] [id number] CT Body Reading Room PREGNANCY SCREEN, [id number] 13:29:00 Test Item Value Reference Range Comments TEST URINE (BEAKER) (test suez=399) Negative POCT-GLUCOSE [id number] 12:11:00 Test Item Value Reference Range Comments POC-GLUCOSE METER (BEAKER) 152 mg/dL 70-110 TESTED AT [address] (test skjh=2545) [place] [address] POCT-GLUCOSE [id number] 09:16:00 Test Item Value Reference Range Comments POC-GLUCOSE METER (BEAKER) 174 mg/dL 70-110 TESTED AT [address] (test wpbt=7254) [place] [address] BLOOD GAS, [id number] 09:14:00 Test Item Value Reference Range Comments PH ARTERIAL (BEAKER) (test zpdk=106) 7.41 7.35-7.45 PCO2 ARTERIAL (BEAKER) (test zost=813) 38 mmHg 35-45 PO2 ARTERIAL (BEAKER) (test oqml=903) 144 mmHg 80-90 O2 SATURATION ARTERIAL (BEAKER) (test oqwe=037) 98.9 % 96.0-97.0 HCO3 ARTERIAL (BEAKER) (test kcbr=643) 24 mmol/L 21-29 BASE EXCESS ARTERIAL (BEAKER) (test kgbq=188) -0.8 mmol/L -2.0-3.0 PATIENT TEMPERATURE (BEAKER) (test jpod=3838) 36.2 C FIO2 (BEAKER) (test ftdx=8891) 40.0 % RAD, ABDOMEN/KUB, 1 VIEW [id number] 06:43:00Reason for exam:->ng tube placementShould this be [...] Shaikh Verified Date/Time: 08/25/2018 06:43:19 [id number] RAD, CHEST, 1 VIEW, NON [id number] 06:42:00Reason for exam:->post intubationShould this be performed [...] Shaikh Verified Date/Time: 08/25/2018 06:42:12 Reading Location: [facility] C013Y CT Body Reading Room HIV-1 ANTIGEN WITH HIV-1/2 [id number] 03:32:00 Test Item Value Reference Range Comments HIV-1 ANTIGEN WITH HIV 1\T\2 ANTIBODY (2) Nonreactive Nonreactive (BEAKER) (test wyxb=3649) BLOOD GAS, [id number] 03:24:00 Test Item Value Reference Range Comments PH ARTERIAL (BEAKER) (test zcsi=224) 7.40 7.35-7.45 PCO2 ARTERIAL (BEAKER) (test cpmy=278) 31 mm Hg 35-45 PO2 ARTERIAL (BEAKER) (test umzu=354) 73 mmHg 80-90 O2 SATURATION ARTERIAL (BEAKER) (test skcp=493) 97.4 % 96.0-97.0 HCO3 ARTERIAL (BEAKER) (test uzca=732) 20 mmol/L 21-29 BASE EXCESS ARTERIAL (BEAKER) (test yqlm=160) -3.6 mmol/L -2.0-3.0 PATIENT TEMPERATURE (BEAKER) (test adxs=9206) 36.5 C FIO2 (BEAKER) (test lcvu=7831) 21.0 % RAPID DRUG SCREEN, [id number] 03:19:00 Test Item Value Reference Range Comments BARBITURATE URINE (BEAKER) (test quxq=640) Negative Negative BENZODIAZEPINE SCREEN URINE (BEAKER) (test Negative Negative xciq=258) COCAINE (METAB.) SCREEN (BEAKER) (test ujzv=8001) Negative Negative METHADONE SCREEN (BEAKER) (test zyhg=2003) Negative Negative OPIATE SCREEN URINE (BEAKER) (test uhbl=313) Negative Negative CANNABINOID SCREEN URINE (BEAKER) (test zwwx=530) Negative Negative AMPH/METHAMPH SCREEN (BEAKER) (test oocr=1807) Negative Negative PHENCYCLIDINE SCREEN URINE (BEAKER) (test frty=642) Negative Negative OXYCODONE SCREEN URINE (BEAKER) (test qded=8603) Negative Negative DRUG CUTOFF CONC.Cocaine 300 ng/mL Cannabinoid 50 ng/mL Benzodiazepine 200 ng/mLBarbiturate 200 ng/ mLPhencyclidine 25 ng/mLOpiate 300 ng/mLMethadone 300 ng/mLAmphetamine/ 1000 ng/mL MethamphetamineOxycodone 300 ng/mLThis assay provides an unconfirmed qualitative test result for the clinical management of patients in emergency situations. Chain of custody not maintained. Some typg-qah-ljjjbsr medications, as well as adulterants, may cause inaccurate results. Clinical correlation should be applied. A more comprehensive drug screen or confirmation of a detected drug may be performed upon request.PROTHROMBIN TIME/[id number] 03:17:00 Test Item Value Reference Range Comments PROTIME (BEAKER) (test kxwp=731) 14.6 seconds 11.7-14.7 INR (BEAKER) (test qrli=242) 1.1 <=5.9 RECOMMENDED COUMADIN/WARFARIN INR THERAPY RANGESSTANDARD DOSE: 2.0 - 3.0 Includes: PROPHYLAXIS forvenous thrombosis, systemic embolization; TREATMENT for venous thrombosis and/or pulmonary embolus.HIGH RISK: Target INR is 2.5-3.5 for patients with mechanical heart valves.PT/[id number] 03:17:00 Test Item Value Reference Range Comments PROTIME (BEAKER) (test sdco=993) 14.6 seconds 11.7-14.7 INR (BEAKER) (test dezp=227) 1.1 <=5.9 PARTIAL THROMBOPLASTIN TIME (BEAKER) (test 28.4 seconds 22.5-36.0 drjc=250) RECOMMENDED COUMADIN/WARFARIN INR THERAPY RANGESSTANDARD DOSE: 2.0 - 3.0 Includes: PROPHYLAXIS forvenous thrombosis, systemic embolization; TREATMENT for venous thrombosis and/or pulmonary embolus.HIGH RISK: Target INR is 2.5-3.5 for patients with mechanical heart valves.ACETAMINOPHEN [id number] 03:13:00 Test Item Value Reference Range Comments ACETAMINOPHEN LEVEL (BEAKER) (test wyif=651) < ug/mL 10.0-30.0 Therapeutic Range: 10.0-30.0 g/mLToxic Levels: >200.0 g/mLCBC W/PLT COUNT & AUTO [id number] 03:13:00 Test Item Value Reference Range Comments WHITE BLOOD CELL COUNT (BEAKER) (test mrvn=351) 6.7 K/ L 3.5-10.5 RED BLOOD CELL COUNT (BEAKER) (test osxl=389) 3.64 M/ L 3.93-5.22 HEMOGLOBIN (BEAKER) (test ldya=922) 11.3 GM/DL 11.2-15.7 HEMATOCRIT (BEAKER) (test pwug=500) 33.8 % 34.1-44.9 MEAN CORPUSCULAR VOLUME (BEAKER) (test glpo=677) 92.9 fL 79.4-94.8 MEAN CORPUSCULAR HEMOGLOBIN (BEAKER) (test 31.0 pg 25.6-32.2 uytz=490) MEAN CORPUSCULAR HEMOGLOBIN CONC (BEAKER) (test 33.4 GM/DL 32.2-35.5 afzy=473) RED CELL DISTRIBUTION WIDTH (BEAKER) (test 12.4 % 11.7-14.4 koao=634) PLATELET COUNT (BEAKER) (test gqoo=175) 182 K/CU MM 150-450 MEAN PLATELET VOLUME (BEAKER) (test rklb=168) 8.9 fL 9.4-12.3 NUCLEATED RED BLOOD CELLS (BEAKER) (test 0 /100 WBC 0-0 bxxy=502) NEUTROPHILS RELATIVE PERCENT (BEAKER) (test 81 % tqxn=577) LYMPHOCYTES RELATIVE PERCENT (BEAKER) (test 13 % klgb=465) MONOCYTES RELATIVE PERCENT (BEAKER) (test 5 % kzwc=712) EOSINOPHILS RELATIVE PERCENT (BEAKER) (test 1 % llsb=172) BASOPHILS RELATIVE PERCENT (BEAKER) (test 0 % fxnd=910) NEUTROPHILS ABSOLUTE COUNT (BEAKER) (test 5.40 K/ L 1.56-6.13 mybc=551) LYMPHOCYTES ABSOLUTE COUNT (BEAKER) (test 0.83 K/ L 1.18-3.74 tlqv=845) MONOCYTES ABSOLUTE COUNT (BEAKER) (test 0.36 K/ L 0.24-0.36 uean=717) EOSINOPHILS ABSOLUTE COUNT (BEAKER) (test 0.03 K/ L 0.04-0.36 iuvi=702) BASOPHILS ABSOLUTE COUNT (BEAKER) (test 0.02 K/ L 0.01-0.08 wpnu=412) IMMATURE GRANULOCYTES-RELATIVE PERCENT (BEAKER) 0 % 0-1 (test mqin=4471) SALICYLATE [id number] 03:12:00 Test Item Value Reference Range Comments SALICYLATE LEVEL (BEAKER) (test txbr=565) < mg/dL 15.0-30.0 Therapeutic Range: 15.0-30.0 mg/dLToxic: >30.0 mg/dL Lethal: >70.0 mg/dLTROPONIN [id number] 03:08:00 Test Item Value Reference Range Comments TROPONIN I (BEAKER) (test exoi=222) < ng/mL 0.00-0.03 Troponin I (TnI) levels [...] failure, acidosis, acute neurological disease, and persistent tachyarrhythmia.[id number] 03:02:00 Test Item Value Reference Range Comments PHOSPHORUS (BEAKER) (test ztet=564) 2.9 mg/dL 2.3-4.7 [id number] 03:02:00 Test Item Value Reference Range Comments MAGNESIUM (BEAKER) (test thdi=941) 1.9 mg/dL 1.6-2.6 BASIC METABOLIC [id number] 03:02:00 Test Item Value Reference Range Comments SODIUM (BEAKER) (test 140 meq/L 136-145 wkpv=430) POTASSIUM (BEAKER) (test 4.2 meq/L 3.5-5.1 udou=824) CHLORIDE (BEAKER) (test 111 meq/L 98-107 xyql=646) CO2 (BEAKER) (test 23 meq/L 22-29 noyz=551) BLOOD UREA NITROGEN 9 mg/dL 7-21 (BEAKER) (test tpvr=191) CREATININE (BEAKER) (test 0.77 mg/dL 0.57-1.25 rclx=784) GLUCOSE RANDOM (BEAKER) 125 mg/dL 70-105 (test mart=511) CALCIUM (BEAKER) (test 8.1 mg/dL 8.4-10.2 pnba=617) EGFR (BEAKER) (test 86 mL/min/1.73 sq m ESTIMATED GFR IS NOT thvg=7712) ACCURATE CREATININE CLEARANCE IN PREDICTING GLOMERULAR FILTRATION RATE. ESTIMATED GFR IS NOT APPLICABLE FOR DIALYSIS PATIENTS. HEPATIC FUNCTION [id number] 03:02:00 Test Item Value Reference Range Comments TOTAL PROTEIN (BEAKER) (test kztr=605) 5.9 gm/dL 6.0-8.3 ALBUMIN (BEAKER) (test fadg=2229) 3.6 g/dL 3.5-5.0 BILIRUBIN TOTAL (BEAKER) (test xoil=787) 0.6 mg/dL 0.2-1.2 BILIRUBIN DIRECT (BEAKER) (test rzun=189) 0.2 mg/dL 0.1-0.5 ALKALINE PHOSPHATASE (BEAKER) (test jevi=709) 68 U/L 40-150 AST (SGOT) (BEAKER) (test jdrv=157) 14 U/L 5-34 ALT (SGPT) (BEAKER) (test qqdx=908) 11 U/L 6-55 CREATINE KINASE (CK)2018-08-25 03:02:00 Test Item Value Reference Range Comments CREATINE KINASE TOTAL (BEAKER) (test qoas=021) 49 U/L 29-200 [id number] 03:02:00 Test Item Value Reference Range Comments LIPASE (BEAKER) (test xiyo=819) 26 U/L 8-78 [id number] 02:59:00 Test Item Value Reference Range Comments ETHANOL (BEAKER) (test lagf=600) < mg/dL <=10 LACTIC ACID, VENOUS, WHOLE [id number] 02:56:00 Test Item Value Reference Range Comments LACTATE BLOOD VENOUS (2) (BEAKER) (test 1.8 mmol/L 0.5-2.2 emmu=5008) [id number] 02:53:00 Test Item Value Reference Range Comments AMMONIA (BEAKER) (test ryrv=429) 16 mol/L 18-72 URINALYSIS W/ REFLEX URINE [id number] 02:47:00 Test Item Value Reference Range Comments COLOR (BEAKER) (test pglm=085) Light Yellow CLARITY (BEAKER) (test hgsu=665) Clear SPECIFIC GRAVITY UA (BEAKER) (test awae=348) 1.010 1.001-1.035 PH UA (BEAKER) (test vyaw=422) 6.0 5.0-8.0 PROTEIN UA (BEAKER) (test vnze=516) 20 mg/dL Negative GLUCOSE UA (BEAKER) (test dtqs=818) Negative Negative KETONES UA (BEAKER) (test bylr=333) Negative Negative BILIRUBIN UA (BEAKER) (test vvpp=864) Negative Negative BLOOD UA (BEAKER) (test xmrm=637) Small Negative NITRITE UA (BEAKER) (test vdfp=646) Negative Negative LEUKOCYTE ESTERASE UA (BEAKER) (test fojz=882) Negative Negative UROBILINOGEN UA (BEAKER) (test wpbt=838) 0.2 mg/dL 0.2-1.0 RBC UA (BEAKER) (test jshw=133) 1 /HPF WBC UA (BEAKER) (test vbbt=724) 1 /HPF BACTERIA (BEAKER) (test yyjr=003) Rare MUCUS (BEAKER) (test yhyx=5650) Occasional HYALINE CASTS (BEAKER) (test wwge=500) 1 /LPF GRANULAR CASTS (BEAKER) (test ldrw=312) 1 /LPF SOURCE(BEAKER) (test vcqw=5458) POCT-GLUCOSE [id number] 02:11:00 Test Item Value Reference Range Comments POC-GLUCOSE METER (BEAKER) 151 mg/dL 70-110 TESTED AT [facility] [id number] (test pbui=4946) [facility] [id number]
[2019-09-22 20:36] LABS: Absolute Lymphocytes (CBC) 1.6 K/uL (0.7-4.9); Basophils % 1.4 % (0-1.3); Hematocrit 39.4 % (36.0-45.0); Lymphocytes % 32.3 % (15.3-44.8); MPV 7.5 fL (7.6-11.3); Protime INR 1.01; RBC Red Blood Cell Count 4.37 M/uL (3.86-4.86)
[2019-09-22 20:49] LABS: ALT/SGPT 27 U/L (12-78); AST/SGOT 18 U/L (15-37); Albumin 4.1 g/dL (3.4-5.0); Alkaline Phosphatase 84 U/L (45-117); BUN Blood Urea Nitrogen 10 mg/dL (7-18); Bicarbonate 28 mmol/L (21-32); Bilirubin Direct 0.1 mg/dL (0-0.2); Bilirubin Total 0.3 mg/dL (0.2-1.0); Glucose Level 94 mg/dL (74-106); Magnesium 2.3 mg/dL (1.8-2.4); NT PRO-BNP 19 pg/mL (<125); Potassium 3.7 mmol/L (3.5-5.1); Protein, Total 7.4 g/dL (6.4-8.2); Sodium Level 141 mmol/L (136-145); Troponin (Emerg Dept Use Only) < 0.02 ng/mL (0.0-0.045)
--- NOTE | 2019-09-22 20:50 | RAD REPORT ---
EXAM DESCRIPTION: RAD - Chest Single View - 09/22/2019 8:33 pm CLINICAL HISTORY: CHEST PAIN Chest pain. COMPARISON: Chest Single View dated 02/24/2019; Chest Single View dated 01/01/2019; Chest Single View dated 08/24/2018; Chest Single View dated 05/13/2018 FINDINGS: Portable technique limits examination quality. The lungs are grossly clear. The heart is normal in size. No displaced fractures. IMPRESSION: No acute intrathoracic process suspected.
[2019-09-22] MEDS ORDERED: KETOROLAC 30 MG/ML INJ ONE (21:14)
--- NOTE | 2019-09-22 21:45 | ER ---
Nurse's Notes [facility] Name: Angelica Salcedo Age: 34 yrs Sex: Female : 1985 Arrival Date: 09/22/2019 Time: 19:50 Bed 7 Private MD: Diagnosis: Chest pain, unspecified;Migraine, unspecified Presentation: 09/22 19:51 Presenting complaint: Patient states: "About 2:30 I got a really bad migraine, I took aj1 Execdrin Migraine but it didn't help. About 10 minutes ago I got this really sharp pain in my chest and I have this tingling in both my shoulder blades and my lips are numb" Patient ambulated to triage with a steady gait, denies weakness. Transition of care: patient was not received from another setting of care. Onset of symptoms was September 22, 2019. Risk Assessment: Do you want to hurt yourself or someone else? Patient reports no desire to harm self or others. Initial Sepsis Screen: Does the patient meet any 2 criteria? No. Patient's initial sepsis screen is negative. Does the patient have a suspected source of infection? No. Patient's initial sepsis screen is negative. Care prior to arrival: None. 19:51 Method Of Arrival: Ambulatory aj1 19:51 Acuity: DIEGO 3 aj1 Triage Assessment: 19:54 General: Appears uncomfortable, Behavior is cooperative, anxious. Pain: Complains of aj1 pain in forehead, anterior aspect of left upper chest and diaphragm Pain currently is 9 out of 10 on a pain scale. Neuro: Level of Consciousness is awake, alert, obeys commands. Neuro: Moves all extremities. Gait is steady, Speech is normal, Facial symmetry appears normal, Cardiovascular: Patient's skin is warm and dry. Respiratory: Airway is patent Respiratory effort is even, unlabored, Respiratory pattern is regular, symmetrical. 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 - Social history:: Smoking status: Patient/guardian denies using tobacco. - Ebola Screening: : Patient denies travel to an Ebola-affected area in the 21 days before illness onset. Screenin:16 Abuse screen: Denies threats or abuse. Nutritional screening: No deficits noted. ea Tuberculosis screening: No symptoms or risk factors identified. Fall Risk None identified. Assessment: 20:14 General: Appears uncomfortable, Behavior is appropriate for age. Pain: Complains of ea pain in chest Pain does not radiate. Pain currently is 8 out of 10 on a pain scale. Quality of pain is described as pressure, Pain began 1 day ago. Neuro: Level of Consciousness is awake, alert, obeys commands, Oriented to person, place, time, situation. Cardiovascular: Patient's skin is warm and dry. Respiratory: Airway is patent Respiratory effort is even, unlabored, Respiratory pattern is regular, symmetrical. Derm: Skin is pink, warm \\T\\ dry. 21:50 Reassessment: Patient and/or family updated on plan of care and expected duration. Pain ea level reassessed. Patient is alert, oriented x 3, equal unlabored respirations, skin warm/dry/pink. Patient states symptoms have improved. 22:22 Reassessment: Patient and/or family updated on plan of care and expected duration. Pain ea level reassessed. Patient is alert, oriented x 3, equal unlabored respirations, skin warm/dry/pink. Discharge instruction given to patient, verbalized the understanding of instruction. Pt left ED accompanied by family. Pt left ED ambulatory accompanied by family. Vital Signs: 19:54 BP 149 / 97; Pulse 72; Resp 18; Temp 97.2; Pulse Ox 100% on R/A; Weight 58.97 kg (R); aj1 Height 5 ft. 3 in. (160.02 cm) (R); Pain 9/10; 21:39 BP 141 / 82; Pulse 115; Resp 18; Pulse Ox 100% on R/A; ea 22:00 BP 128 / 74; Pulse 99; Resp 18; Temp 97.5; Pulse Ox 100% ; ea 19:54 Body Mass Index 23.03 (58.97 kg, 160.02 cm) aj1 ED Course: 19:50 Patient arrived in ED. jg7 19:53 Triage completed. aj1 19:54 Arm band placed on Patient placed in an exam room. aj1 20:00 Cristal Conde, RN is Primary Nurse. ea 20:02 Hieu Edmonds MD is Attending Physician. tw4 20:15 Initial lab(s) drawn, by me, sent to lab. Inserted saline lock: 20 gauge in right aa1 antecubital area, using aseptic technique. Blood collected. 20:16 Patient has correct armband on for positive identification. Placed in gown. Bed in low ea position. Call light in reach. monitoring tech on. Pulse ox on. NIBP on. 20:17 Patient maintains SpO2 saturation greater than 95% on room air. ea 20:35 XRAY Chest (1 view) In Process Unspecified. EDMS 22:20 IV discontinued, intact, bleeding controlled, No redness/swelling at site. Pressure ea dressing applied. 22:23 No provider procedures requiring assistance completed. ea Administered Medications: 21:20 Drug: TORadol 30 mg Route: IVP; Site: right antecubital; ea 21:30 Follow up: Response: Pain is decreased ea 21:50 Drug: Zofran 4 mg Route: IVP; Site: right antecubital; ea 22:26 Follow up: Response: No adverse reaction ea 21:57 Drug: morphine 2 mg {Note: RASS 0.} Route: IVP; Site: right antecubital; ea 22:20 Follow up: Response: No adverse reaction; Pain is decreased; RASS: Alert and Calm (0) ea 21:58 Not Given (Other Intervention Used): Zofran 4 mg PO once ea Outcome: 21:44 Discharge ordered by . tw4 22:23 Discharged to home ambulatory, with family. ea 22:23 Condition: stable 22:23 Discharge instructions given to patient, Instructed on discharge instructions, follow up and referral plans. medication usage, Demonstrated understanding of instructions, follow-up care, medications. 22:25 Patient left the ED. ea Signatures: Dispatcher [employer] EDMS Rosalba Solitario RN RN aj1 Edilma Landeros RN RN aa1 Cristal Conde, Hieu Campos RN, ea, MD MD tw4 Nallely Farr jg7 Corrections: (The following items were deleted from the chart) 22:26 22:25 Response: No adverse reaction; Pain is decreased ea ea
--- NOTE | 2019-09-22 21:46 | EDPHYS ---
Physician Documentation [facility] Name: Angelica Salcedo Age: 34 yrs Sex: Female : 1985 Arrival Date: 09/22/2019 Time: 19:50 Bed 7 Private MD: ED Physician Hieu Edmonds HPI: 09/23 04:30 This 34 yrs old Female presents to ER via Ambulatory with complaints of Chest tw4 Pain, Numbness Of Face, Headache. 04:30 The patient or guardian reports chest pain that is located primarily in the anterior tw4 chest wall, bilaterally. The pain does not radiate. Associated signs and symptoms: Pertinent positives: HEADACHE. The chest pain is described as dull. Duration: The patient or guardian reports a single episode, that is still ongoing. Severity of pain: At its worst the pain was mild in the emergency department the pain is unchanged. The patient has experienced similar episodes in the past, a few times. 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 - Social history:: Smoking status: Patient/guardian denies using tobacco. - Ebola Screening: : Patient denies travel to an Ebola-affected area in the 21 days before illness onset. ROS: 09/23 04:30 Constitutional: Negative for fever, chills, and weight loss, Eyes: Negative for injury, tw4 pain, redness, and discharge. Respiratory: Negative for shortness of breath, cough, wheezing, and pleuritic chest pain, Abdomen/GI: Negative for abdominal pain, nausea, vomiting, diarrhea, and constipation, Back: Negative for injury and pain, MS/Extremity: Negative for injury and deformity, Skin: Negative for injury, rash, and discoloration. Cardiovascular: Positive for chest pain, Negative for edema, orthopnea, palpitations, paroxysmal nocturnal dyspnea. Exam: 04:30 Constitutional: This is a well developed, well nourished patient who is awake, alert, tw4 and in no acute distress. Head/Face: Normocephalic, atraumatic. Chest/axilla: Normal chest wall appearance and motion. Nontender with no deformity. No lesions are appreciated. Cardiovascular: Regular rate and rhythm with a normal S1 and S2. No gallops, murmurs, or rubs. Normal PMI, no JVD. No pulse deficits. Respiratory: Lungs have equal breath sounds bilaterally, clear to auscultation and percussion. No rales, rhonchi or wheezes noted. No increased work of breathing, no retractions or nasal flaring. Back: No spinal tenderness. No costovertebral tenderness. Full range of motion. Skin: Warm, dry with normal turgor. Normal color with no rashes, no lesions, and no evidence of cellulitis. MS/ Extremity: Pulses equal, no cyanosis. Neurovascular intact. Full, normal range of motion. Neuro: Awake and alert, GCS 15, oriented to person, place, time, and situation. Cranial nerves II-XII grossly intact. Motor strength 5/5 in all extremities. Sensory grossly intact. Cerebellar exam normal. Normal gait. Vital Signs: 09/22 19:54 BP 149 / 97; Pulse 72; Resp 18; Temp 97.2; Pulse Ox 100% on R/A; Weight 58.97 kg (R); aj1 Height 5 ft. 3 in. (160.02 cm) (R); Pain 9/10; 21:39 BP 141 / 82; Pulse 115; Resp 18; Pulse Ox 100% on R/A; ea 22:00 BP 128 / 74; Pulse 99; Resp 18; Temp 97.5; Pulse Ox 100% ; ea 19:54 Body Mass Index 23.03 (58.97 kg, 160.02 cm) aj1 MDM: 20:02 Patient medically screened. tw09/23 04:30 Differential diagnosis: acute pericarditis, anxiety, chest wall pain, costochondritis, tw4 gastritis, gastroesophageal reflux disease (GERD). Data reviewed: vital signs, nurses notes. 09/22 20:03 Order name: Basic Metabolic Panel; Complete Time: 21:02 tw4 09/22 21:02 Interpretation: Normal except: CL 108; GFR 78. tw4 09/22 20:03 Order name: CBC with Diff; Complete Time: 21:02 tw4 09/22 21:02 Interpretation: Normal except: MPV 7.5; BASO% 1.4. tw4 09/22 20:03 Order name: LFT's; Complete Time: 21:02 tw4 09/22 21:02 Interpretation: Within normal limits. tw09/22 20:03 Order name: Magnesium; Complete Time: 21:02 tw4 09/22 21:03 Interpretation: Within normal limits: MG 2.3. tw09/22 20:03 Order name: NT PRO-BNP; Complete Time: 21:02 tw4 09/22 21:03 Interpretation: Within normal limits: NT PRO-BNP 19. tw4 09/22 20:03 Order name: PT-INR tw4 09/22 21:03 Interpretation: Within normal limits: PT 11.9. tw4 09/22 20:03 Order name: Troponin (emerg Dept Use Only); Complete Time: 21:02 tw4 09/22 21:03 Interpretation: Within normal limits: TROPED < 0.02. tw09/22 20:03 Order name: XRAY Chest (1 view); Complete Time: 21:02 tw4 09/22 21:03 Interpretation: No acute disease. tw09/22 21:12 Order name: D-Dimer [facility] 09/22 20:03 Order name: EKG; Complete Time: 20:05 09/22 20:03 Order name: Cardiac monitoring; Complete Time: 20:16 4 09/22 20:03 Order name: EKG - Nurse/Tech; Complete Time: 20:16 09/22 20:03 Order name: IV Saline Lock; Complete Time: 20:20 4 09/22 20:03 Order name: Labs collected and sent; Complete Time: 20:20 tw4 09/22 20:03 Order name: O2 Per Protocol; Complete Time: 20:16 4 09/22 20:03 Order name: O2 Sat Monitoring; Complete Time: 20:16 tw4 EC/09 21:41 Rate is 56 beats/min. Rhythm is regular, Sinus bradycardia. QRS [place] is Normal. [place] tw4 interval is normal. QT interval is normal. No Q waves. T waves are Normal. No ST changes noted. Clinical impression: Sinus bradycardia. Interpreted by me. Reviewed by me. Administered Medications: 21:20 Drug: TORadol 30 mg Route: IVP; Site: right antecubital; ea 21:30 Follow up: Response: Pain is decreased ea 21:50 Drug: Zofran 4 mg Route: IVP; Site: right antecubital; ea 22:26 Follow up: Response: No adverse reaction ea 21:57 Drug: morphine 2 mg {Note: RASS 0.} Route: IVP; Site: right antecubital; ea 22:20 Follow up: Response: No adverse reaction; Pain is decreased; RASS: Alert and Calm (0) ea 21:58 Not Given (Other Intervention Used): Zofran 4 mg PO once ea Disposition: 09/22/19 21:44 Discharged to Home. Impression: Chest pain, unspecified, Migraine, unspecified. - Condition is Stable. - Discharge Instructions: Nonspecific Chest Pain, Migraine Headache, Pain Without a Known Cause. - Prescriptions for Ibuprofen 600 mg Oral Tablet - take 1 tablet by ORAL route every 6 hours As needed take with food; 30 tablet. Fiorinal 50- 325-40 mg Oral Capsule - take 1 capsule by ORAL route every 4 hours As needed - not to exceed 6 capsules per day; 20 capsule. - Medication Reconciliation Form, Thank You Letter, Antibiotic Education, Prescription Opioid Use form. - Follow up: Private Physician; When: Upon discharge from the Emergency Department; Reason: Recheck today's complaints, Continuance of care. - Problem is new. - Symptoms have improved. Signatures: Dispatcher [employer] [facility] Rosalba Solitario RN RN aj1 Cristal Conde RN RN ea Wadley, Terrence, MD MD tw4 Corrections: (The following items were deleted from the chart) 21:12 21:04 D-DIMER+COAG.LAB.BRZ ordered. [facility] 21:45 21:44 09/22/2019 21:44 Discharged to Home. Impression: Chest pain, unspecified. tw4 Condition is Stable. Forms are Medication Reconciliation Form, Thank You Letter, Antibiotic Education, Prescription Opioid Use. Follow up: Private Physician; When: Upon discharge from the Emergency Department; Reason: Recheck today's complaints, Continuance of care. Problem is new. Symptoms have improved. tw4 22:25 21:45 09/22/2019 21:44 Discharged to Home. Impression: Chest pain, unspecified; ea Migraine, unspecified. Condition is Stable. Discharge Instructions: Nonspecific Chest Pain, Migraine Headache, Pain Without a Known Cause. Prescriptions for Ibuprofen 600 mg Oral Tablet - take 1 tablet by ORAL route every 6 hours As needed take with food; 30 tablet. and Forms are Medication Reconciliation Form, Thank You Letter, Antibiotic Education, Prescription Opioid Use. Follow up: Private Physician; When: Upon discharge from the Emergency Department; Reason: Recheck today's complaints, Continuance of care. Problem is new. Symptoms have improved. tw4
[2019-09-22] MEDS ORDERED: MORPHINE 2 MG/ML SYR ONE (21:52)
[2019-09-22] MEDS ORDERED: ONDANSETRON 4 MG/2 ML VIAL ONE (21:53)
[2019-09-22 22:53] VITALS: O2SAT 100
[2019-09-22 22:56] VITALS: BP 128/74; TEMP 97.5
--- NOTE | 2019-09-23 10:35 | EKG ---
Test Date: 2019-09-22 Test Time: 20:13:17 Computer Equipment Installer: ELIDA MEASUREMENT RESULTS: Intervals: Rate: 56 DE: 148 QRSD: 86 QT: 428 QTc: 413 [place]: P: 47 DE: 148 QRS: 9 T: 38 INTERPRETIVE STATEMENTS: Sinus bradycardia Low voltage QRS Borderline ECG Compared to ECG 08/11/2019 07:24:07 Sinus rhythm no longer present Electronically Signed On 09-23-19 10:33:37 COMPUTER LABORATORY TECHNICIAN by Leroy Higgins
== END 2019-09-22 22:25 | disposition home or self-care (01) ==
LOC: ER 19:47
DX: R07.9 Chest pain, unspecified (principal); G43.909 Migraine, unspecified, not intractable, without status migrainosus; Z88.0 Allergy status to penicillin; Z88.6 Allergy status to analgesic agent; Z88.1 Allergy status to other antibiotic agents; F41.8 Other specified anxiety disorders
CPT/HCPCS: 36415; 71045; 80048; 80076; 83735; 83880; 84484; 85025; 85379; 85610; 93005; 96374; 96375; 99285; J2270; J2405

== ENCOUNTER 2021-08-10 16:29 | Emergency (ER) | payer SELFPAY ==
[2021-08-10 17:41] LABS: Urine Blood Negative (Negative); Urine Glucose Negative (Negative); Urine Protein Negative (Negative); Urine Specific Gravity 1.015 (1.005-1.030); Urine pH 5.5 (5.0-7.0)
[2021-08-10 17:54] LABS: Absolute Lymphocytes (CBC) 1.1 K/uL (0.7-4.9); Basophils % 0.5 % (0-1.3); Hematocrit 39.9 % (36.0-45.0); Lymphocytes % 19.7 % (15.3-44.8); MPV 7.2 fL (7.6-11.3)
[2021-08-10 17:55] LABS: Protime INR 0.94
[2021-08-10] MEDS ORDERED: KETOROLAC 30 MG/ML INJ ONE (17:55)
[2021-08-10] MEDS ORDERED: NA CHLORIDE 0.9% 1,000 ML ONE (17:55)
[2021-08-10 18:10] LABS: ALT/SGPT 44 U/L (12-78); AST/SGOT 26 U/L (15-37); Albumin 4.1 g/dL (3.4-5.0); Alkaline Phosphatase 72 U/L (45-117); BUN Blood Urea Nitrogen 13 mg/dL (7-18); Bicarbonate 29 mmol/L (21-32); Bilirubin Direct 0.1 mg/dL (0-0.2); Bilirubin Total 0.5 mg/dL (0.2-1.0); Glucose Level 66 mg/dL (74-106); Magnesium 2.3 mg/dL (1.8-2.4); NT PRO-BNP 159 pg/mL (<125); Protein, Total 7.8 g/dL (6.4-8.2); Sodium Level 141 mmol/L (136-145); Troponin (Emerg Dept Use Only) < 0.02 ng/mL (0.0-0.045)
[2021-08-10 18:13] LABS: Urine Bacteria <20 /HPF (<20); Urine RBC <5 /HPF (NONE SEEN)
--- NOTE | 2021-08-10 18:45 | RAD REPORT ---
EXAM DESCRIPTION: RAD - Chest Single View - 08/10/2021 6:02 pm CLINICAL HISTORY: CHEST PAIN Chest pain. COMPARISON: Chest Single View dated 09/22/2019; Chest Single View dated 02/24/2019; Chest Single View dated 01/01/2019; Chest Single View dated 08/24/2018 FINDINGS: Portable technique limits examination quality. The lungs are grossly clear. The heart is normal in size. No displaced fractures. IMPRESSION: No acute intrathoracic process suspected.
[2021-08-10] MEDS ORDERED: FENTANYL CITR 100 MCG/2 ML ONE (21:03)
--- NOTE | 2021-08-10 21:57 | ER ---
Nurse's Notes [facility] Name: Angelica Salcedo Age: 36 yrs Sex: Female : 1985 Arrival Date: 08/10/2021 Time: 16:31 Bed 10 Private MD: Diagnosis: Chest pain, unspecified Presentation: 08/10 16:34 Chief complaint: Patient states: about 3 weeks ago i had double ear infection and tw2 tonsillitis. then 3 weeks ago my chest started hurting. it feels like an 80 pound weight is sitting on my chest. it will not go away today. nothing has helped and it hurts to lift my LEFT arm. it just feels heavy. the pain is just making me sick to my stomach. Coronavirus screen: At this time, the client does not indicate any symptoms associated with coronavirus-19. Ebola Screen: Patient denies travel to an Ebola-affected area in the 21 days before illness onset. Initial Sepsis Screen: Does the patient meet any 2 criteria? No. Patient's initial sepsis screen is negative. Does the patient have a suspected source of infection? No. Patient's initial sepsis screen is negative. Risk Assessment: Do you want to hurt yourself or someone else? Patient reports no desire to harm self or others. Onset of symptoms was August 10, 2021. 16:34 Method Of Arrival: Ambulatory tw2 16:34 Acuity: DIEGO 3 tw2 Triage Assessment: 16:38 General: Appears in no apparent distress. uncomfortable, slender, well groomed, tw2 Behavior is calm, cooperative, appropriate for age. Pain: Complains of pain in chest. Cardiovascular: Reports chest pain. Historical: - Allergies: 16:36 Amoxicillin; tw2 16:36 Cipro; tw2 16:36 PENICILLINS; tw2 16:36 Bactrim; tw2 - Home Meds: 16:36 prazosin 1 mg Oral cap 1 cap 3 times per day [Active]; albuterol sulfate 90 tw2 mcg/actuation Inhl aebs 1 puff every 4 hours [Active]; - PMHx: 16:36 Anxiety; Depression; Hypertension; tw2 - PSHx: 16:36 hysterectomy; right knee sx; tw2 - Immunization history:: Client reports having NOT received the Covid vaccine. - Social history:: Smoking status: Reported history of juuling and/or vaping. Patient/guardian denies using tobacco, Stopped _ months ago 2. Screenin:25 Abuse screen: Denies threats or abuse. Denies injuries from another. Nutritional ld1 screening: No deficits noted. Tuberculosis screening: No symptoms or risk factors identified. Fall Risk None identified. Assessment: 17:25 General: Appears in no apparent distress. uncomfortable, Behavior is calm, cooperative, ld1 appropriate for age. Pain: Complains of pain in anterior aspect of left upper chest, right breast and left breast Pain does not radiate. Pain currently is 8 out of 10 on a pain scale. Quality of pain is described as sharp, throbbing, Pain began X 3 weeks. Pt reports intermittent pain, but today the pain has not let up. Called doctor. Doctor referred her to come to the ER. Is intermittent. Neuro: Level of Consciousness is awake, alert, obeys commands, Oriented to person, place, time, situation, Appropriate for age. Cardiovascular: Capillary refill < 3 seconds Patient's skin is warm and dry. Rhythm is regular. Respiratory: Airway is patent Respiratory effort is even, unlabored, Respiratory pattern is regular, symmetrical. GI: Abdomen is flat, non-distended, Patient currently denies abdominal pain. : No signs and/or symptoms were reported regarding the genitourinary system. EENT: No signs and/or symptoms were reported regarding the EENT system. Derm: No signs and/or symptoms reported regarding the dermatologic system. Musculoskeletal: No signs and/or symptoms reported regarding the musculoskeletal system. 18:37 Reassessment: Patient appears in no apparent distress at this time. No changes from ld1 previously documented assessment. Patient and/or family updated on plan of care and expected duration. Pain level reassessed. Patient is alert, oriented x 3, equal unlabored respirations, skin warm/dry/pink. 19:58 Reassessment: Patient appears in no apparent distress at this time. Patient and/or vg1 family updated on plan of care and expected duration. Pain level reassessed. Patient is alert, oriented x 3, equal unlabored respirations, skin warm/dry/pink. pt states chest pain under right breast and above left breast. Provider notified. 20:16 Reassessment: Received VO from Leilani to administer Fentanyl 25 mg IVP x1. vg1 21:04 Reassessment: Patient appears in no apparent distress at this time. No changes from vg1 previously documented assessment. Patient and/or family updated on plan of care and expected duration. Pain level reassessed. Patient is alert, oriented x 3, equal unlabored respirations, skin warm/dry/pink. 22:18 Reassessment: Patient appears in no apparent distress at this time. Patient and/or vg1 family updated on plan of care and expected duration. Pain level reassessed. Patient is alert, oriented x 3, equal unlabored respirations, skin warm/dry/pink. Patient states feeling better. Vital Signs: 16:34 BP 123 / 87; Pulse 76; Resp 17; Temp 97.6(TE); Pulse Ox 100% on R/A; Weight 63.5 kg tw2 (R); Height 5 ft. 3 in. (160.02 cm); Pain 8/10; 17:25 BP 111 / 80; Pulse 65; Resp 18; Pulse Ox 100% on R/A; Pain 8/10; ld1 18:37 BP 118 / 82; Pulse 70; Resp 18; Pulse Ox 100% on R/A; ld1 20:00 BP 118 / 84; Pulse 65; Resp 16; Pulse Ox 98% ; vg1 21:04 BP 112 / 84; Pulse 70; Resp 16; Pulse Ox 99% ; vg1 22:17 BP 121 / 81; Pulse 70; Resp 16; Pulse Ox 100% ; vg1 16:34 Body Mass Index 24.80 (63.50 kg, 160.02 cm) tw2 ED Course: 16:31 Patient arrived in ED. ds1 16:36 Triage completed. tw2 16:38 Arm band placed on. tw2 16:42 EKG completed in triage. Results shown to MD. tw2 17:16 Marty Duke PA is PHCP. cp 17:16 Georges Castellon MD is Attending Physician. cp 17:18 Maria Luz Renteria, KEVYN is Primary Nurse. ld1 17:22 Patient has correct armband on for positive identification. Placed in gown. Bed in low mh5 position. Call light in reach. Side rails up X 1. Warm blanket given. cardiac monitor on. Pulse ox on. NIBP on. 17:23 EKG done, by ED staff, reviewed by Marty GUIDO. mh5 17:25 No provider procedures requiring assistance completed. Patient maintains SpO2 ld1 saturation greater than 95% on room air. 17:37 Initial lab(s) drawn, by nd, sent to lab. COVID swab sent to lab. Flu and/or RSV swab [facility] sent to lab. Inserted saline lock: 20 gauge in right antecubital area, using aseptic technique. Blood collected. 17:38 Influenza Screen (a \T\ B) Sent. [facility] 17:38 Basic Metabolic Panel Sent. [facility] 17:38 CBC with Diff Sent. 5 17:38 LFT's Sent. [facility] 17:38 Magnesium Sent. [facility] 17:38 NT PRO-BNP Sent. [facility] 17:38 PT-INR Sent. [facility] 17:38 Troponin (emerg Dept Use Only) Sent. [facility] 17:38 Urine collected: clean catch specimen, clear. 5 18:29 XRAY Chest (1 view) In Process Unspecified. EDMS 19:11 SARS-COV-2 RT PCR Sent. ld1 19:11 D-Dimer Sent. ld1 19:11 LAB Add On Sent. ld1 19:11 D-Dimer Sent. ld1 19:11 CORONAVIRUS Sent. ld1 22:18 IV discontinued, intact, bleeding controlled, No redness/swelling at site. Pressure vg1 dressing applied. Administered Medications: 17:41 Drug: Ketorolac 15 mg Route: IVP; Site: right antecubital; ld1 17:42 Follow up: Response: No adverse reaction ld1 17:41 Drug: NS 0.9% 1000 ml Route: IV; Rate: 1 bolus; Site: right antecubital; ld1 22:19 Follow up: IV Status: Completed infusion; IV Intake: 1000ml vg1 20:43 Drug: fentaNYL (PF) 25 mcg {Note: rass0.} Route: IVP; Site: right antecubital; vg1 21:04 Follow up: Response: No adverse reaction; Pain is decreased vg1 Intake: 22:19 IV: 1000ml; Total: 1000ml. vg1 Outcome: 21:56 Discharge ordered by . cp 22:18 Discharged to home ambulatory, with family. vg1 22:18 Condition: stable 22:18 Discharge instructions given to patient, Instructed on discharge instructions, follow up and referral plans. medication usage, Demonstrated understanding of instructions, follow-up care, medications, Prescriptions given X 1. 22:18 Patient left the ED. vg1 Signatures: Dispatcher [employer] EDMS Jayashree Cabezas ds1 Marty Duke PA PA cp Wise, Tara, RN RN tw2 Irma Mobley [facility] Maria Guadalupe June RN RN vg1 Maria Luz Renteria RN RN ld1
--- NOTE | 2021-08-10 21:58 | EDPHYS ---
Physician Documentation [facility] Name: Angelica Salcedo Age: 36 yrs Sex: Female : 1985 Arrival Date: 08/10/2021 Time: 16:31 Bed 10 Private MD: ED Physician Georges Castellon HPI: 08/10 17:30 This 36 yrs old Female presents to ER via Ambulatory with complaints of Chest cp Pain. 17:30 The patient or guardian reports chest pain that is located primarily in the anterior cp chest wall. 17:30 The pain does not radiate. Associated signs and symptoms: Pertinent negatives: cp abdominal pain, cough, diaphoresis, lower extremity pain, lower extremity swelling, palpitations, shortness of breath, syncope. The chest pain is described as a heaviness. Duration: The patient or guardian reports a single episode, that is still ongoing, and worsening. Modifying factors: The symptoms are alleviated by nothing. the symptoms are aggravated by sitting up and forward. Severity of pain: in the emergency department the pain is unchanged despite home interventions. Patient reports chest pain for past 3 weeks. Recently treated for tonsillitis, ear infection 3 weeks ago with oral antibiotic. Historical: - Allergies: 16:36 Amoxicillin; tw2 16:36 Cipro; tw2 16:36 PENICILLINS; tw2 16:36 Bactrim; tw2 - Home Meds: 16:36 prazosin 1 mg Oral cap 1 cap 3 times per day [Active]; albuterol sulfate 90 tw2 mcg/actuation Inhl aebs 1 puff every 4 hours [Active]; - PMHx: 16:36 Anxiety; Depression; Hypertension; tw2 - PSHx: 16:36 hysterectomy; right knee sx; tw2 - Immunization history:: Client reports having NOT received the Covid vaccine. - Social history:: Smoking status: Reported history of juuling and/or vaping. Patient/guardian denies using tobacco, Stopped _ months ago 2. ROS: 17:35 Constitutional: Negative for body aches, chills, fever, poor PO intake. cp 17:35 Eyes: Negative for injury, pain, redness, and discharge. cp 17:35 ENT: Negative for ear pain, sore throat, difficulty swallowing, difficulty handling secretions. 17:35 Cardiovascular: Positive for chest pain, Negative for edema, palpitations. 17:35 Respiratory: Negative for cough, shortness of breath, wheezing. 17:35 Abdomen/GI: Negative for abdominal pain, nausea, vomiting, and diarrhea. 17:35 Skin: Negative for rash. 17:35 Neuro: Negative for altered mental status, headache, weakness. 17:35 All other systems are negative. Exam: 16:45 ECG was reviewed by the Attending Physician. cp 17:40 Constitutional: The patient appears in no acute distress, alert, awake, cp non-diaphoretic, non-toxic, well developed, well nourished. 17:40 Head/Face: Normocephalic, atraumatic. cp 17:40 Eyes: Periorbital structures: appear normal, Conjunctiva: normal, no exudate, no injection, Sclera: no appreciated abnormality, Lids and lashes: appear normal, bilaterally. 17:40 ENT: External ear(s): are unremarkable, Nose: is normal, Mouth: Lips: moist, Oral mucosa: moist, Posterior pharynx: Airway: no evidence of obstruction, patent. 17:40 Neck: ROM/movement: is normal, is supple, without pain, no range of motions limitations. 17:40 Chest/axilla: Inspection: normal. 17:40 Cardiovascular: Rate: normal, Rhythm: regular, Edema: is not appreciated, JVD: is not appreciated. 17:40 Respiratory: the patient does not display signs of respiratory distress, Respirations: normal, no use of accessory muscles, no retractions, labored breathing, is not present, Breath sounds: are clear throughout, no decreased breath sounds, no stridor, no wheezing. 17:40 Abdomen/GI: Inspection: abdomen appears normal, Palpation: abdomen is soft and non-tender, in all quadrants. 17:40 Back: pain, is absent, ROM is normal. 17:40 Neuro: Orientation: to person, place \T\ time. Mentation: is normal, Motor: moves all fours, strength is normal, Sensation: is normal. Vital Signs: 16:34 BP 123 / 87; Pulse 76; Resp 17; Temp 97.6(TE); Pulse Ox 100% on R/A; Weight 63.5 kg tw2 (R); Height 5 ft. 3 in. (160.02 cm); Pain 8/10; 17:25 BP 111 / 80; Pulse 65; Resp 18; Pulse Ox 100% on R/A; Pain 8/10; ld1 18:37 BP 118 / 82; Pulse 70; Resp 18; Pulse Ox 100% on R/A; ld1 20:00 BP 118 / 84; Pulse 65; Resp 16; Pulse Ox 98% ; vg1 21:04 BP 112 / 84; Pulse 70; Resp 16; Pulse Ox 99% ; vg1 22:17 BP 121 / 81; Pulse 70; Resp 16; Pulse Ox 100% ; vg1 16:34 Body Mass Index 24.80 (63.50 kg, 160.02 cm) tw2 MDM: 17:19 Patient medically screened. cp 17:45 Differential diagnosis: acute pericarditis, chest wall pain, pericarditis, pleurisy, cp pneumonia, pneumothorax, pulmonary embolus. 21:55 Data reviewed: vital signs, nurses notes, lab test result(s), EKG, radiologic studies, cp plain films. 21:55 Test interpretation: by ED physician or midlevel provider: ECG, plain radiologic cp studies. Counseling: I had a detailed discussion with the patient and/or guardian regarding: the historical points, exam findings, and any diagnostic results supporting the discharge/admit diagnosis, lab results, radiology results, the need for outpatient follow up, a family practitioner, to return to the emergency department if symptoms worsen or persist or if there are any questions or concerns that arise at home. Response to treatment: the patient's symptoms have mildly improved after treatment, and as a result, I will discharge patient. Special discussion: Based on the patient's history, exam, and Dx evaluation, there is no indication for emergent intervention or inpatient Tx. It is understood by the patient/guardian that if the Sx's persist or worsen they need to return immediately for re-evaluation. 08/10 17:26 Order name: Basic Metabolic Panel cp 08/10 17:26 Order name: CBC with Diff cp 08/10 17:26 Order name: LFT's cp 08/10 17:26 Order name: Magnesium cp 08/10 17:26 Order name: NT PRO-BNP cp 08/10 17:26 Order name: PT-INR cp 08/10 17:26 Order name: Troponin (emerg Dept Use Only) cp 08/10 17:26 Order name: Influenza Screen (a \T\ B) cp 08/10 17:41 Order name: Urine Dipstick-Ancillary; Complete Time: 19:00 EDMS 08/10 17:56 Order name: Protime (+INR); Complete Time: 19:00 EDCO 08/10 17:57 Order name: CBC with Automated Diff; Complete Time: 19:00 EDCO 08/10 19:01 Interpretation: Normal except: MPV 7.2. 08/10 18:08 Order name: Influenza Screen (A ; Complete Time: 19:00 EDMS 08/10 17:26 Order name: XRAY Chest (1 view); Complete Time: 19:00 08/10 18:11 Order name: Basic Metabolic Panel; Complete Time: 19:00 EDMS 08/10 19:01 Interpretation: Normal except: GLUC 66; GFR 71. 08/10 18:11 Order name: Liver (Hepatic) Function; Complete Time: 19:00 EDMS 08/10 18:11 Order name: Troponin (Emerg Dept Use Only); Complete Time: 19:00 EDCO 08/10 18:11 Order name: NT PRO-BNP; Complete Time: 19:00 EDCO 08/10 18:11 Order name: Magnesium; Complete Time: 19:00 EDCO 08/10 18:14 Order name: Urine Microscopic Only; Complete Time: 19:00 EDCO 08/10 18:27 Order name: CORONAVIRUS EDCO 08/10 18:37 Order name: SARS-COV-2 RT PCR; Complete Time: 20:11 EDCO 08/10 19:02 Order name: D-Dimer 08/10 19:02 Order name: LAB Add On 08/10 19:03 Order name: D-Dimer; Complete Time: 20:11 [facility] 08/10 20:42 Order name: Troponin (emerg Dept Use Only) 08/10 20:42 Order name: Troponin (Emerg Dept Use Only) EDCO 08/10 17:26 Order name: Urine Dipstick-Ancillary (obtain specimen); Complete Time: 17:38 08/10 17:26 Order name: EKG; Complete Time: 17:27 08/10 17:26 Order name: Cardiac monitoring; Complete Time: 17:28 08/10 17:26 Order name: EKG - Nurse/Tech; Complete Time: 17:28 08/10 17:26 Order name: IV Saline Lock; Complete Time: 17:38 cp 08/10 17:26 Order name: Labs collected and sent; Complete Time: 17:38 cp 08/10 17:26 Order name: O2 Per Protocol; Complete Time: 17:28 cp 08/10 17:26 Order name: O2 Sat Monitoring; Complete Time: 17:28 cp EC:45 Rate is 64 beats/min. Rhythm is regular. NV interval is normal. QRS interval is normal. cp QT interval is normal. T waves are Inverted in lead aVR. Interpreted by me. Reviewed by me. Administered Medications: 17:41 Drug: Ketorolac 15 mg Route: IVP; Site: right antecubital; ld1 17:42 Follow up: Response: No adverse reaction ld1 17:41 Drug: NS 0.9% 1000 ml Route: IV; Rate: 1 bolus; Site: right antecubital; ld1 22:19 Follow up: IV Status: Completed infusion; IV Intake: 1000ml vg1 20:43 Drug: fentaNYL (PF) 25 mcg {Note: rass0.} Route: IVP; Site: right antecubital; vg1 21:04 Follow up: Response: No adverse reaction; Pain is decreased vg1 Disposition Summary: 08/10/21 21:56 Discharge Ordered Location: Home cp Problem: new cp Symptoms: have improved cp Condition: Stable cp Diagnosis - Chest pain, unspecified cp Followup: cp - With: Private Physician - When: 2 - 3 days - Reason: Recheck today's complaints Discharge Instructions: - Discharge Summary Sheet cp - Nonspecific Chest Pain, Adult cp - Aspirin and Your Heart cp Forms: - Medication Reconciliation Form cp - Thank You Letter cp - Antibiotic Education cp - Prescription Opioid Use cp Prescriptions: - Diclofenac Sodium 75 mg Oral Tablet Sustained Release - take 1 tablet by ORAL route 2 times per day; 30 tablet; Refills: 0, Product cp Selection Permitted Addendum: 08/14/2021 13:56 Co-signature as Attending Physician, Georges Castellon MD I agree with the assessment and r n plan of care. Attestation: The patient's history, exam findings, diagnostics, and a summary of any interventions or procedures was reviewed in detail with Marty GUIDO. Signatures: Dispatcher [employer] EDCO Georges Castellon MD MD rn Page, Corey, PA PA cp Wise, Tara, RN RN tw2 Maria Guadalupe June RN RN vg1 Maria Luz Renteria RN RN ld1 Corrections: (The following items were deleted from the chart) 08/10 17:27 UA MICROSCOPIC+U.LAB.BRZ ordered. EDMS EDMS 17: CORONAVIRUS+MR.LAB.BRZ ordered. EDMS EDMS 19:01 19:00 Normal except. cp cp 08/11 21:58 08/10 17:30 Patient reports chest pain for past 3 weeks. Recently treated for upper cp respiratory infection, ear infection 3 weeks ago with oral Augmentin. cp
[2021-08-10 22:45] VITALS: TEMP 97.6
[2021-08-10 22:51] VITALS: BP 121/81; O2SAT 100
== END 2021-08-10 22:18 | disposition home or self-care (01) ==
LOC: ER 16:29
DX: R07.89 Other chest pain (principal); I10 Essential (primary) hypertension; F41.8 Other specified anxiety disorders; Z88.0 Allergy status to penicillin; Z88.1 Allergy status to other antibiotic agents
CPT/HCPCS: 36415; 71045; 80048; 80076; 81003; 81015; 83735; 83880; 84484; 85025; 85379; 85610; 87804; 93005; 96361; 96374; 96375; 99285; J3010; J7030; U0003